=== PATIENT | male | born 1950 | race Caucasian/White ===

== ENCOUNTER 2021-02-19 11:43 | Outpatient (REF) | payer MEDICARE, OTHER, SELFPAY ==
[2021-02-19 13:42] LABS: MANUAL DIFF FLAG NO
[2021-02-19 13:52] LABS: Basophils Percent Auto 0.2 % (0-2); Eosinophils Absolute Auto 0.2 X10*3/uL (0.0-0.4); Eosinophils Percent Auto 3.1 % (0-4); Hematocrit 36.9 % (42-52); Hemoglobin 12.6 g/dl (14.0-18.0); Imm Gran Abs Auto 0.02 X10*3/uL (0.00-0.03); Imm Gran Pct Auto 0.3 % (0.0-0.4); Lymphocytes Absolute Auto 1.6 X10*3/uL (1.2-4.9); Lymphocytes Percent Auto 24.4 % (20-40); Mean Corpuscular HGB Conc 34.1 g/dl (31.0-36.0); Mean Corpuscular Hemoglobin 29.9 pg (27.0-33.0); Mean Corpuscular Volume 87.4 fL (80-98); Mean Platelet Volume 11.8 fL (9.4-12.4); Monocytes Absolute Auto 0.6 X10*3/uL (0.1-1.2); Monocytes Percent Auto 9.9 % (2-11); Neutrophils Absolute Auto 3.9 X10*3/uL (2.0-8.3); Neutrophils Percent Auto 62.1 % (45-73); Platelet Count 218 X10*3/uL (160-400); Red Blood Count 4.22 X10*6/uL (4.60-5.80); Red Cell Distribution Width 12.6 % (11.0-16.0); White Blood Count 6.4 X10*3/uL (4.8-10.8)
[2021-02-19 13:58] LABS: Estimated Average Glucose 212 mg/dL
[2021-02-19 14:23] LABS: Alanine Aminotransferase 29 U/L (0-40); Albumin Level 3.8 g/dL (3.5-5.0); Alkaline Phosphatase 87 U/L (39-117); Anion Gap 11 (12-20); Aspartate Amino Transferase 22 U/L (5-37); Bilirubin Total 0.8 mg/dL (0.0-1.0); Blood Urea Nitrogen 19 mg/dL (9-16); Calcium 9.2 mg/dL (8.4-10.2); Carbon Dioxide 25 mmol/L (22-29); Chloride 105 mmol/L (96-108); Cholesterol 114 mg/dL; Estimated Glomerular Filt Rate > 60; Glucose Fasting 277 mg/dL (60-99); HDL Cholesterol 25 mg/dL; LDL Cholesterol Calculated 59 mg/dl; Potassium 4.3 mmol/L (3.3-5.1); Sodium 137 mmol/L (135-145); Total Protein 6.5 g/dL (6.5-8.0); Triglycerides 154 mg/dL
== END 2021-02-19 11:44 | disposition home or self-care (01) ==
LOC: HO.HMGCLDS 11:43
PROVIDERS: PCP Internal Medicine; Visit Provider Internal Medicine
DX: E78.5 Hyperlipidemia, unspecified (principal); E11.9 Type 2 diabetes mellitus without complications; I10 Essential (primary) hypertension; I25.10 Atherosclerotic heart disease of native coronary artery without angina pectoris
CPT/HCPCS: 36415; 80053; 80061; 83036; 85025

== ENCOUNTER 2021-02-20 12:00 | Outpatient (REF) | payer MEDICARE, OTHER, SELFPAY ==
[2021-02-22 12:19] LABS: Microalbum/Creatinine Ratio Ur 5.2 ug/mg cr
== END 2021-02-20 12:01 | disposition home or self-care (01) ==
LOC: HO.HMGCLNP 12:00
PROVIDERS: Visit Provider Internal Medicine
DX: I10 Essential (primary) hypertension (principal); I25.10 Atherosclerotic heart disease of native coronary artery without angina pectoris; E78.5 Hyperlipidemia, unspecified; E11.9 Type 2 diabetes mellitus without complications; Z79.4 Long term (current) use of insulin
CPT/HCPCS: 82043

== ENCOUNTER 2021-06-14 09:12 | Outpatient (REF) | payer MEDICARE, OTHER, SELFPAY ==
[2021-06-14 11:52] LABS: Alanine Aminotransferase 26 U/L (0-40); Albumin Level 3.8 g/dL (3.5-5.0); Alkaline Phosphatase 93 U/L (39-117); Anion Gap 12 (12-20); Aspartate Amino Transferase 23 U/L (5-37); Bilirubin Total 0.6 mg/dL (0.0-1.0); Blood Urea Nitrogen 18 mg/dL (9-16); Calcium 9.4 mg/dL (8.4-10.2); Carbon Dioxide 21 mmol/L (22-29); Chloride 109 mmol/L (96-108); Cholesterol 110 mg/dL; Estimated Glomerular Filt Rate > 60; Glucose Fasting 212 mg/dL (60-99); HDL Cholesterol 20 mg/dL; LDL Cholesterol Calculated 59 mg/dl; Potassium 4.1 mmol/L (3.3-5.1); Sodium 138 mmol/L (135-145); Total Protein 6.7 g/dL (6.5-8.0); Triglycerides 159 mg/dL
[2021-06-14 11:56] LABS: Creatinine Urine 235.83 mg/dL; Microalbum/Creatinine Ratio Ur 5.5 ug/mg cr
[2021-06-14 12:04] LABS: Estimated Average Glucose 186 mg/dL; Hemoglobin A1c % 8.1 %
== END 2021-06-14 09:13 | disposition home or self-care (01) ==
LOC: HO.LAB 09:12
PROVIDERS: Visit Provider Internal Medicine
DX: E78.5 Hyperlipidemia, unspecified (principal); I10 Essential (primary) hypertension; E11.9 Type 2 diabetes mellitus without complications
CPT/HCPCS: 36415; 80053; 80061; 82043; 83036

== ENCOUNTER 2021-10-22 14:25 | Outpatient (REF) | payer MEDICARE, OTHER, SELFPAY ==
[2021-10-22 16:37] LABS: Hematocrit 38.6 % (42.0-52.0); Hemoglobin 13.2 g/dl (14.0-18.0); Mean Corpuscular HGB Conc 34.2 g/dl (31.0-36.0); Mean Corpuscular Hemoglobin 30.9 pg (27.0-33.0); Mean Corpuscular Volume 90.4 fL (80.0-98.0); Platelet Count 180 X10*3/uL (160-400); Red Blood Count 4.27 X10*6/uL (4.60-5.80); Red Cell Distribution Width 12.6 % (11.0-16.0)
[2021-10-22 16:43] LABS: Estimated Average Glucose 131 mg/dL; Hemoglobin A1c % 6.2 %
[2021-10-22 16:51] LABS: Alanine Aminotransferase 21 U/L (0-40); Albumin Level 3.8 g/dL (3.5-5.0); Alkaline Phosphatase 85 U/L (39-117); Anion Gap 10 (12-20); Aspartate Amino Transferase 20 U/L (5-37); Bilirubin Total 0.6 mg/dL (0.0-1.0); Blood Urea Nitrogen 20 mg/dL (9-16); Carbon Dioxide 25 mmol/L (22-29); Chloride 108 mmol/L (96-108); Cholesterol 111 mg/dL; Estimated Glomerular Filt Rate > 60; Glucose Fasting 139 mg/dL (60-99); HDL Cholesterol 25 mg/dL; LDL Cholesterol Calculated 57 mg/dl; Potassium 4.3 mmol/L (3.3-5.1); Sodium 139 mmol/L (135-145); Total Protein 6.7 g/dL (6.5-8.0); Triglycerides 147 mg/dL
== END 2021-10-22 14:26 | disposition home or self-care (01) ==
LOC: HO.HMGCLDS 14:25
PROVIDERS: PCP Internal Medicine; Visit Provider Internal Medicine
DX: E11.9 Type 2 diabetes mellitus without complications (principal); E78.5 Hyperlipidemia, unspecified; I10 Essential (primary) hypertension
CPT/HCPCS: 36415; 80053; 80061; 83036; 85027

== ENCOUNTER 2021-11-01 14:00 | Outpatient (REF) | payer MEDICARE, OTHER, SELFPAY ==
--- NOTE | ~2021-11-01 | XR_ITS ---
EXAMINATION: XR CHEST CLINICAL INFORMATION: Shortness of breath and weakness. COMPARISON: None. TECHNIQUE: 2 views of the chest were obtained. FINDINGS: There is no evidence of acute parenchymal disease, pneumothorax, or pleural effusion. Heart normal size. Status post median sternotomy and CABG. There is some linear scarring seen within the lingula. XR/XR chest 2V IMPRESSION: No acute disease.
== END 2021-11-01 14:01 | disposition home or self-care (01) ==
LOC: HO.XRAY 14:00
PROVIDERS: PCP Internal Medicine; Visit Provider Hospitalist
DX: R06.02 Shortness of breath (principal); G47.33 Obstructive sleep apnea (adult) (pediatric)
CPT/HCPCS: 71046; 99202

== ENCOUNTER → 2022-01-07 13:10 | Outpatient (BNVA) | payer MEDICARE, OTHER, SELFPAY | PROVIDERS: PCP Internal Medicine; Visit Provider Hospitalist | DX: M62.81 Muscle weakness (generalized) (principal); R26.89 Other abnormalities of gait and mobility; R06.02 Shortness of breath; G47.33 Obstructive sleep apnea (adult) (pediatric) | CPT/HCPCS: 99212 ==

== ENCOUNTER 2022-10-05 11:46 | Outpatient (REF) | payer MEDICARE, OTHER, SELFPAY ==
[2022-10-05 14:05] LABS: MANUAL DIFF FLAG NO
[2022-10-05 14:11] LABS: Basophils Percent Auto 0.2 % (0-2); Eosinophils Absolute Auto 0.3 X10*3/uL (0.0-0.4); Hematocrit 39.8 % (42.0-52.0); Hemoglobin 13.4 g/dl (14.0-18.0); Imm Gran Abs Auto 0.03 X10*3/uL (0.00-0.03); Imm Gran Pct Auto 0.3 % (0.0-0.4); Lymphocytes Absolute Auto 1.6 X10*3/uL (1.2-4.9); Lymphocytes Percent Auto 18.4 % (20-40); Mean Corpuscular HGB Conc 33.7 g/dl (31.0-36.0); Mean Corpuscular Hemoglobin 31.1 pg (27.0-33.0); Mean Corpuscular Volume 92.3 fL (80.0-98.0); Mean Platelet Volume 11.8 fL (9.4-12.4); Monocytes Absolute Auto 0.8 X10*3/uL (0.1-1.2); Monocytes Percent Auto 9.5 % (2-11); Neutrophils Absolute Auto 5.9 x10*3/uL (2.0-8.3); Neutrophils Percent Auto 68.6 % (45-73); Platelet Count 211 X10*3/uL (160-400); Red Blood Count 4.31 X10*6/uL (4.60-5.80); Red Cell Distribution Width 12.5 % (11.0-16.0); White Blood Count 8.6 X10*3/uL (4.8-10.8)
[2022-10-05 14:21] LABS: Estimated Average Glucose 111 mg/dL; Hemoglobin A1c % 5.5 %
[2022-10-05 14:26] LABS: Alanine Aminotransferase 40 U/L (0-40); Albumin Level 3.8 g/dL (3.5-5.0); Alkaline Phosphatase 81 U/L (39-117); Anion Gap 11 (12-20); Aspartate Amino Transferase 30 U/L (5-37); Bilirubin Total 0.5 mg/dL (0.0-1.0); Blood Urea Nitrogen 20 mg/dL (9-16); Calcium 9.7 mg/dL (8.4-10.2); Carbon Dioxide 25 mmol/L (22-29); Chloride 108 mmol/L (96-108); Cholesterol 120 mg/dL; Estimated Glomerular Filt Rate 60; Glucose Fasting 156 mg/dL (60-99); HDL Cholesterol 27 mg/dL; LDL Cholesterol Calculated 72 mg/dl; Potassium 4.2 mmol/L (3.3-5.1); Sodium 140 mmol/L (135-145); Total Protein 6.6 g/dL (6.5-8.0); Triglycerides 109 mg/dL
[2022-10-05 14:51] LABS: Creatinine Urine 184.07 mg/dL; Microalbum/Creatinine Ratio Ur 10.8 ug/mg cr
== END 2022-10-05 11:47 | disposition home or self-care (01) ==
LOC: HO.HMGCLDS 11:46
PROVIDERS: PCP Internal Medicine; Visit Provider Internal Medicine
DX: E11.9 Type 2 diabetes mellitus without complications (principal); I10 Essential (primary) hypertension; E78.5 Hyperlipidemia, unspecified; I25.10 Atherosclerotic heart disease of native coronary artery without angina pectoris
CPT/HCPCS: 36415; 80053; 80061; 82043; 83036; 85025

== ENCOUNTER 2023-04-11 14:01 | Outpatient (REF) | payer MEDICARE, OTHER, SELFPAY ==
[2023-04-11 16:14] LABS: MANUAL DIFF FLAG NO
[2023-04-11 16:17] LABS: Basophils Percent Auto 0.1 % (0-2); Eosinophils Absolute Auto 0.3 X10*3/uL (0.0-0.4); Eosinophils Percent Auto 4.7 % (0-4); Hematocrit 41.2 % (42.0-52.0); Imm Gran Abs Auto 0.02 X10*3/uL (0.00-0.03); Imm Gran Pct Auto 0.3 % (0.0-0.4); Lymphocytes Absolute Auto 1.6 X10*3/uL (1.2-4.9); Lymphocytes Percent Auto 23.1 % (20-40); Mean Corpuscular Hemoglobin 31.9 pg (27.0-33.0); Mean Corpuscular Volume 93.8 fL (80.0-98.0); Mean Platelet Volume 11.3 fL (9.4-12.4); Monocytes Absolute Auto 0.6 X10*3/uL (0.1-1.2); Neutrophils Absolute Auto 4.4 x10*3/uL (2.0-8.3); Neutrophils Percent Auto 62.8 % (45-73); Platelet Count 235 X10*3/uL (160-400); Red Blood Count 4.39 X10*6/uL (4.60-5.80); Red Cell Distribution Width 12.1 % (11.0-16.0)
[2023-04-11 16:29] LABS: Alanine Aminotransferase 40 U/L (0-40); Albumin Level 3.9 g/dL (3.5-5.0); Alkaline Phosphatase 82 U/L (39-117); Anion Gap 10 (12-20); Aspartate Amino Transferase 35 U/L (5-37); Bilirubin Total 0.5 mg/dL (0.0-1.0); Blood Urea Nitrogen 17 mg/dL (9-16); Calcium 9.5 mg/dL (8.4-10.2); Carbon Dioxide 24 mmol/L (22-29); Chloride 109 mmol/L (96-108); Cholesterol 119 mg/dL (<200); Estimated Glomerular Filt Rate > 60; Glucose Fasting 144 mg/dL (60-99); HDL Cholesterol 29 mg/dL (>40); LDL Cholesterol Calculated 69 mg/dL (<100); Potassium 4.2 mmol/L (3.3-5.1); Sodium 139 mmol/L (135-145); Total Protein 7.1 g/dL (6.5-8.0); Triglycerides 107 mg/dL (<150)
[2023-04-11 16:32] LABS: Estimated Average Glucose 105 mg/dL; Hemoglobin A1c % 5.3 % (<6.0)
== END 2023-04-11 14:02 | disposition home or self-care (01) ==
LOC: HO.HMGCLDS 14:01
PROVIDERS: PCP Internal Medicine; Visit Provider Internal Medicine
DX: I25.10 Atherosclerotic heart disease of native coronary artery without angina pectoris (principal); E78.5 Hyperlipidemia, unspecified; E11.9 Type 2 diabetes mellitus without complications
CPT/HCPCS: 36415; 80053; 80061; 83036; 85025

== ENCOUNTER 2023-04-12 10:00 | Outpatient (REF) | payer OTHER, MEDICARE, SELFPAY | END 2023-04-12 10:01 | disposition home or self-care (01) | LOC: HO.HMGCLNP 10:00 | PROVIDERS: PCP Internal Medicine; Visit Provider Internal Medicine | DX: Z13.89 Encounter for screening for other disorder (principal) ==

== ENCOUNTER 2023-08-14 09:25 | Outpatient (REF) | payer MEDICARE, OTHER, SELFPAY ==
[2023-08-14 10:15] LABS: MANUAL DIFF FLAG NO
[2023-08-14 10:21] LABS: Basophils Percent Auto 0.1 % (0-2); Eosinophils Absolute Auto 0.4 X10*3/uL (0.0-0.4); Eosinophils Percent Auto 5.6 % (0-4); Hematocrit 39.4 % (42.0-52.0); Hemoglobin 13.5 g/dl (14.0-18.0); Imm Gran Abs Auto 0.01 X10*3/uL (0.00-0.03); Imm Gran Pct Auto 0.1 % (0.0-0.4); Lymphocytes Percent Auto 27.7 % (20-40); Mean Corpuscular HGB Conc 34.3 g/dl (31.0-36.0); Mean Corpuscular Hemoglobin 31.5 pg (27.0-33.0); Mean Corpuscular Volume 92.1 fL (80.0-98.0); Mean Platelet Volume 11.2 fL (9.4-12.4); Monocytes Absolute Auto 0.6 X10*3/uL (0.1-1.2); Monocytes Percent Auto 8.5 % (2-11); Neutrophils Absolute Auto 4.1 x10*3/uL (2.0-8.3); Platelet Count 190 X10*3/uL (160-400); Red Blood Count 4.28 X10*6/uL (4.60-5.80); White Blood Count 7.1 X10*3/uL (4.8-10.8)
[2023-08-14 11:18] LABS: Estimated Average Glucose 120 mg/dL; Hemoglobin A1c % 5.8 % (<6.0)
[2023-08-14 11:28] LABS: Alanine Aminotransferase 28 U/L (0-40); Albumin Level 3.8 g/dL (3.5-5.0); Alkaline Phosphatase 77 U/L (39-117); Anion Gap 9 (12-20); Aspartate Amino Transferase 27 U/L (5-37); Bilirubin Total 0.5 mg/dL (0.0-1.0); Blood Urea Nitrogen 13 mg/dL (9-16); Carbon Dioxide 25 mmol/L (22-29); Chloride 112 mmol/L (96-108); Cholesterol 104 mg/dL (<200); Estimated Glomerular Filt Rate > 60; Glucose Fasting 99 mg/dL (60-99); HDL Cholesterol 31 mg/dL (>40); LDL Cholesterol Calculated 60 mg/dL (<100); Potassium 3.5 mmol/L (3.3-5.1); Sodium 142 mmol/L (135-145); TSH reflex Free T4 1.86 uIU/mL (0.32-4.0); Total Protein 6.5 g/dL (6.5-8.0); Triglycerides 67 mg/dL (<150)
[2023-08-14 11:34] LABS: Creatinine Urine 121.53 mg/dL; Microalbum/Creatinine Ratio Ur 10.6 ug/mg cr (<30)
== END 2023-08-14 09:26 | disposition home or self-care (01) ==
LOC: HO.HMGCLDS 09:25
PROVIDERS: PCP Internal Medicine; Visit Provider Internal Medicine
DX: Z00.00 Encounter for general adult medical examination without abnormal findings (principal); E11.9 Type 2 diabetes mellitus without complications; E78.5 Hyperlipidemia, unspecified; I25.10 Atherosclerotic heart disease of native coronary artery without angina pectoris
CPT/HCPCS: 36415; 80053; 80061; 82043; 82570; 83036; 84443; 85025

== ENCOUNTER 2023-08-15 10:53 | Outpatient (AMB) | payer MEDICARE, OTHER, SELFPAY ==
[2023-08-15 10:55] VITALS: BP 106/66; PULSE 82; O2SAT 99; BMI 21.1
--- NOTE | 2023-08-15 10:55 | MHC.PC.OV ---
Vital Signs 08/15/23 10:55 Height 6 ft 1.5 in Weight 162 lb BMI 21.1 BP 106/66 Blood Pressure Location Lt brachial Position Sitting Pulse 82 Pulse Source Pulse Oximeter Pulse Oximetry (%) 99 Oxygen Delivery Method Room Air Intake Visit Reasons: 4 month fu Intake Note: Pt is here today for 4 months follow up visit. Allergies Tetanus Vaccines and Toxoid [Tetanus] Allergy (Intermediate, Verified 08/15/23 10:57) DIAPHORESIS/STIFFNESS tetanus and diphtheria toxoids Allergy (Unknown, Verified 08/15/23 10:57) fever,swelling Medication List - Last Reconciled 08/15/23 by Josy Chapman MD aspirin 81 mg PO DAILY atorvastatin 80 mg PO DAILY carvedilol 3.125 mg PO BID erenumab-aooe mg subcut folic acid 1 mg PO DAILY ibuprofen 200 mg PO Q6H PRN insulin aspart U-100 (Novolog FlexPen U-100 Insulin aspart) 10 units (0.1 mL) subcut TID insulin glargine (Basaglar KwikPen U-100 Insulin) 40 units subcut QAM multivitamin 1 tab PO DAILY pantoprazole 40 mg PO DAILY paroxetine HCl 60 mg PO DAILY pen needle, diabetic Use to inject insulin 4 times per day topiramate 50 mg PO BID topiramate 50 mg PO TID Tobacco use date assessed: 08/15/23 Fall risk assessment: No Falls in past year Last assessed Fall Risk: 08/15/23 Dental Screening Dental Screen Date: 08/15/23 Did you have a dental visit in the last 12 months?: Yes Did you have a dental problem in the last 6 months where you did not have access to dental care?: No Was dental information given to patient?: Patient has dentist HPI 4 month fu HPI Details Pt presents for f/u DM 2, HTN, CAD, hyperlipid, stable on meds. Patient reports fasting blood glucose between 100-120 and denies hypoglycemia. [facility] Medical History Muscular weakness SOB (shortness of breath) Otitis externa DM type 2 (diabetes mellitus, type 2) Migraine Poor balance Sleep apnea Tremor Coronary artery disease Hyperlipidemia Cerumen impaction Chronic depression HTN (hypertension) Surgical History H/O colonoscopy History of surgery History of hand surgery Hx of CABG History of back surgery History of cervical discectomy Family History Father No problems noted. Mother Diabetes Mental health disorder Substance use disorder Social History Housing: House Alcohol intake: never Patient Tobacco Use Status: Never used Tobacco e-Cigarette/Vaping Use: Never Used service: Yes Current occupational status: retired Cognitive needs: No Hearing needs: No Vision needs: No Questionnaire PHQ-9 Over the last 2 weeks, how often have you been bothered by any of the following problems? 1. Little interest or pleasure in doing things: several days 2. Feeling down, depressed, or hopeless: several days 3. Trouble falling or staying asleep, or sleeping too much: several days 4. Feeling tired or having little energy: several days 5. Poor appetite or overeating: several days 6. Feeling bad about yourself - or that you are a failure or have let yourself or your family down: not at all 7. Trouble concentrating on things, such as reading the newspaper or watching television: not at all 8. Moving or speaking so slowly that other people could have noticed. Or the opposite - being so fidgety or restless that you have been moving around a lot more than usual: not at all 9. Thoughts that you would be better off or of hurting yourself in some way: not at all Total score: 5 Depression Screening Interpretation: Negative Depression Screening Done: Yes Source: Developed by Drs. Pato Nguyen, Mana Dotson, Mohamud Agustin and colleagues, with an educational kevin from [employer]. Thrive Questionnaire Date Thrive assessed: 08/15/23 I am a: Patient What is your living situation today?: I have a steady place to live Within the past 12 months, did the food you bought not last and you didn't have the money to get more?: Never true Within the past 12 months, did you worry whether your food would run out before you got money to buy more?: Never true Do you have trouble paying for medicines?: No Do you have trouble getting transportation to medical appointments?: No Do you have trouble paying your heating and electricity bill?: No Do you have trouble taking care of your child, family member or friend?: No Do you have trouble with day-to-day activities such as bathing, preparing meals, shopping, managing finances, etc.?: No Are you currently unemployed and looking for a job?: No Are you interested in more education?: No Please select the resources that you would like help with: None THRIVE Score: 0 AUDIT C Alcohol Use Questionnaire (AUDIT-C) 1. How often do you have a drink containing alcohol?: Never 3. How often do you have six or more drinks on one occasion?: Never Total Score: 0 SONYA-7 AMB Questionnaire SONYA-7 Date SONYA - 7 assessed: 08/15/23 Feeling nervous, anxious, or on edge: 0 = Not at all Not being able to stop or control worryin = Not at all Worrying too much about different things: 0 = Not at all Trouble relaxin = Not at all Being so restless that it is hard to sit still: 0 = Not at all Becoming easily annoyed or irritable: 0 = Not at all Feeling afraid as if something awful might happen: 0 = Not at all Total SONYA-7 score (0-4 normal; 5-9 mild; 10-14 moderate; 15-21 severe): 0 Source: Developed by Drs. Pato Nguyen, Mana Dotson, Mohamud Agustin and colleagues, with an educational kevin from [employer]. Review of Systems Const All systems reviewed & are unremarkable except as noted in HPI and below Reports no additional complaints Eyes Reports no additional complaints ENT Reports no additional complaints Card Reports no additional complaints Resp Reports no additional complaints GI Reports no additional complaints Reports no additional complaints Physical exam (Primary Care) Vital Signs: Last Vital Signs Pulse 82 08/15/23 10:55 BP 106/66 08/15/23 10:55 Pulse Ox 99 08/15/23 10:55 Oxygen Delivery Method Room Air 08/15/23 10:55 BMI result Body Mass Index 21.1 Tobacco/Smoking Status: Tobacco use Status Tobacco use date assessed 08/15/23 08/15/23 11:05 Patient Tobacco Use Status Never used Tobacco 08/15/23 11:05 e-Cigarette/Vaping Use Never Used 08/15/23 11:05 PHQ-9: PHQ-9 Score PHQ-9: Total score 5 08/15/23 11:10 Depression Screening Interpretation: Negative Thrive Assessment: Date of Thrive Assessment Date Thrive assessed 08/15/23 08/15/23 11:05 Const General: no acute distress HENMT Head: Yes normal to inspection Ears: hearing grossly normal bilaterally Face and sinus: Yes normal facial exam Resp Effort & Inspection: normal respiratory effort Auscultation: clear to auscultation bilaterally Cardio Rhythm: regular rhythm Heart sounds: S1 normal heart sound present and S2 normal heart sound present GI Inspection: Yes normal to inspection Palpation (GI): Soft to palpation Percussion: Yes normal to percussion Assessment and Plan Assessment & Plan (1) DM type 2 (diabetes mellitus, type 2): Code(s): E11.9 - Type 2 diabetes mellitus without complications Plan: A1c is 5.8, continue current medications increase physical activity ADA diet discussed with the patient. Follow-up in 6 months with a fasting labs (2) KOFI (obstructive sleep apnea): Comment: on Bpap, f/u with sleep medicine Code(s): G47.33 - Obstructive sleep apnea (adult) (pediatric) Plan: Continue BiPAP (3) HTN (hypertension): Code(s): I10 - Essential (primary) hypertension Plan: Continue carvedilol (4) Coronary artery disease: Comment: s/p CABG 05/2019, cardiac cath 08/27, Dr. Morris, multiple stenosis in coronary arteries, no intervention, medical management Code(s): I25.10 - Atherosclerotic heart disease of [place] coronary artery without angina pectoris Plan: Continue current medications and follow-up with Cardiology (5) Hyperlipidemia: Code(s): E78.5 - Hyperlipidemia, unspecified Plan: Continue statin Coding Level of Care Code Est Pt Level 4 (26900) Diagnoses DM type 2 (diabetes mellitus, type 2) E11.9 KOFI (obstructive sleep apnea) G47.33 HTN (hypertension) I10 Coronary artery disease I25.10 Hyperlipidemia E78.5
== END 2023-08-15 11:17 | disposition home or self-care (01) ==
PROVIDERS: PCP Internal Medicine; Visit Provider Internal Medicine
DX: E11.9 Type 2 diabetes mellitus without complications (principal); G47.33 Obstructive sleep apnea (adult) (pediatric); I10 Essential (primary) hypertension; I25.10 Atherosclerotic heart disease of native coronary artery without angina pectoris; E78.5 Hyperlipidemia, unspecified
CPT/HCPCS: 99214

== ENCOUNTER 2024-02-12 12:20 | Outpatient (AMB) | payer MEDICARE, OTHER, SELFPAY ==
--- NOTE | 2024-02-12 12:41 | MHC.PC.OV ---
Vital Signs 02/12/24 12:42 Height 6 ft 1.5 in Weight 165 lb BMI 21.5 BP 96/62 Blood Pressure Location Lt brachial Position Sitting Pulse 95 Pulse Source Pulse Oximeter Pulse Oximetry (%) 100 Oxygen Delivery Method Room Air Intake Visit Reasons: 6 month fu Intake Note: Pt is here today for 6 months follow up visit. Allergies Tetanus Vaccines and Toxoid [Tetanus] Allergy (Intermediate, Verified 02/12/24 12:45) DIAPHORESIS/STIFFNESS tetanus and diphtheria toxoids Allergy (Unknown, Verified 02/12/24 12:45) fever,swelling Medication List - Last Reconciled 02/12/24 by Josy Chapman MD aspirin 81 mg PO DAILY atorvastatin 80 mg PO DAILY carvedilol 3.125 mg PO BID erenumab-aooe mg subcut folic acid 1 mg PO DAILY ibuprofen 200 mg PO Q6H PRN insulin aspart U-100 (Novolog FlexPen U-100 Insulin aspart) 10 units (0.1 mL) subcut TID insulin glargine (Basaglar KwikPen U-100 Insulin) 40 units (0.4 mL) subcut QAM multivitamin 1 tab PO DAILY pantoprazole 40 mg PO DAILY paroxetine HCl 60 mg PO DAILY pen needle, diabetic Use to inject insulin 4 times per day topiramate 50 mg PO BID topiramate 50 mg PO TID Tobacco use date assessed: 02/12/24 Fall risk assessment: 1 Fall in past year Last assessed Fall Risk: 02/12/24 Dental Screening Dental Screen Date: 02/12/24 Did you have a dental visit in the last 12 months?: No Did you have a dental problem in the last 6 months where you did not have access to dental care?: No Was dental information given to patient?: Patient declined HPI 6 month fu HPI Details Pt is for f/u on insulin-dependent diabetes hypertension hyperlipidemia chronic anxiety controlled on current medications. [facility] Medical History Muscular weakness SOB (shortness of breath) Otitis externa DM type 2 (diabetes mellitus, type 2) Migraine Poor balance Sleep apnea Tremor Coronary artery disease Hyperlipidemia Cerumen impaction Chronic depression HTN (hypertension) Surgical History H/O colonoscopy History of surgery History of hand surgery Hx of CABG History of back surgery History of cervical discectomy Family History Father No problems noted. Mother Diabetes Mental health disorder Substance use disorder Social History Housing: House Alcohol intake: never Patient Tobacco Use Status: Never used Tobacco e-Cigarette/Vaping Use: Never Used service: Yes Current occupational status: retired Cognitive needs: No Hearing needs: No Vision needs: No Questionnaire Thrive Questionnaire Date Thrive assessed: 02/12/24 I am a: Patient What is your living situation today?: I have a steady place to live Within the past 12 months, did the food you bought not last and you didn't have the money to get more?: Never true Within the past 12 months, did you worry whether your food would run out before you got money to buy more?: Never true Do you have trouble paying for medicines?: No Do you have trouble getting transportation to medical appointments?: No Do you have trouble paying your heating and electricity bill?: No Do you have trouble taking care of your child, family member or friend?: No Do you have trouble with day-to-day activities such as bathing, preparing meals, shopping, managing finances, etc.?: No Are you currently unemployed and looking for a job?: No Are you interested in more education?: No Please select the resources that you would like help with: None Currently or been in a relationship where the following occur: No concerns reported THRIVE Score: 0 AUDIT C Alcohol Use Questionnaire (AUDIT-C) 1. How often do you have a drink containing alcohol?: Never 3. How often do you have six or more drinks on one occasion?: Never Total Score: 0 SONYA-7 AMB Questionnaire SONYA-7 Date SONYA - 7 assessed: 02/12/24 Feeling nervous, anxious, or on edge: 0 = Not at all Not being able to stop or control worryin = Not at all Worrying too much about different things: 0 = Not at all Trouble relaxin = Not at all Being so restless that it is hard to sit still: 0 = Not at all Becoming easily annoyed or irritable: 0 = Not at all Feeling afraid as if something awful might happen: 0 = Not at all Total SONYA-7 score (0-4 normal; 5-9 mild; 10-14 moderate; 15-21 severe): 0 Source: Developed by Drs. Pato Nguyen, Mana Dotson, Mohamud Agustin and colleagues, with an educational kevin from [employer]. SONYA-7 Assessment Billing SONYA-7 Assessment Tool: SONYA-7 Assessment 75563 Review of Systems Const All systems reviewed & are unremarkable except as noted in HPI and below Eyes Reports no additional complaints ENT Reports no additional complaints Card Reports no additional complaints Resp Reports no additional complaints GI Reports no additional complaints Physical exam (Primary Care) Vital Signs: Last Vital Signs Pulse 95 02/12/24 12:42 BP 96/62 02/12/24 12:42 Pulse Ox 100 02/12/24 12:42 Oxygen Delivery Method Room Air 02/12/24 12:42 BMI result Body Mass Index 21.5 Tobacco/Smoking Status: Tobacco use Status Tobacco use date assessed 02/12/24 02/12/24 12:48 Patient Tobacco Use Status Never used Tobacco 02/12/24 12:41 e-Cigarette/Vaping Use Never Used 02/12/24 12:41 Thrive Assessment: Date of Thrive Assessment Date Thrive assessed 02/12/24 02/12/24 12:48 Currently or been in a relationship where the following occur: No concerns reported Const General: no acute distress HENMT Head: Yes normal to inspection Ears: hearing grossly normal bilaterally Resp Effort & Inspection: normal respiratory effort Auscultation: clear to auscultation bilaterally Cardio Rhythm: regular rhythm Heart sounds: S1 normal heart sound present and S2 normal heart sound present GI Inspection: Yes normal to inspection Palpation (GI): Soft to palpation Percussion: Yes normal to percussion Coding Level of Care Code Est Pt Level 4 (57556) Diagnoses HTN (hypertension) I10 Hyperlipidemia E78.5 DM type 2 (diabetes mellitus, type 2) E11.9 Annual physical exam Z00.00 Additional Codes SONYA-7 Assessment Billing - SONYA-7 Assessment Tool: SONYA-7 Assessment 24772 ([id number]) Assessment & Plan Assessment & Plan (1) HTN (hypertension): Code(s): I10 - Essential (primary) hypertension Category: Medical Plan: cont meds (2) Hyperlipidemia: Code(s): E78.5 - Hyperlipidemia, unspecified Category: Medical Plan: cont statin (3) DM type 2 (diabetes mellitus, type 2): Code(s): E11.9 - Type 2 diabetes mellitus without complications Category: Medical Plan: check A1C, cont meds (4) Annual physical exam: Code(s): Z00.00 - Encounter for general adult medical examination without abnormal findings Category: Medical Plan: return for PE Orders: Orders Complete Blood Count Auto Diff Today E11.9 - Type 2 diabetes mellitus without complications, E78.5 - Hyperlipidemia, unspecified, I10 - Essential (primary) hypertension Comprehensive [place]. Panel Fast Today E11.9 - Type 2 diabetes mellitus without complications, E78.5 - Hyperlipidemia, unspecified, I10 - Essential (primary) hypertension Microalbumin, Random (w Creat) Today E11.9 - Type 2 diabetes mellitus without complications, E78.5 - Hyperlipidemia, unspecified, I10 - Essential (primary) hypertension Comprehensive [place]. Panel Fast 6 Months E11.9 - Type 2 diabetes mellitus without complications, I10 - Essential (primary) hypertension, Z00.00 - Encounter for general adult medical examination without abnormal findings Hemoglobin A1c Today E11.9 - Type 2 diabetes mellitus without complications, E78.5 - Hyperlipidemia, unspecified, I10 - Essential (primary) hypertension Lipid Panel Today E11.9 - Type 2 diabetes mellitus without complications, E78.5 - Hyperlipidemia, unspecified, I10 - Essential (primary) hypertension Hemoglobin A1c 6 Months E11.9 - Type 2 diabetes mellitus without complications, I10 - Essential (primary) hypertension, Z00.00 - Encounter for general adult medical examination without abnormal findings Lipid Panel 6 Months E11.9 - Type 2 diabetes mellitus without complications, I10 - Essential (primary) hypertension, Z00.00 - Encounter for general adult medical examination without abnormal findings Microalbumin, Random (w Creat) 6 Months E11.9 - Type 2 diabetes mellitus without complications, I10 - Essential (primary) hypertension, Z00.00 - Encounter for general adult medical examination without abnormal findings
[2024-02-12 12:42] VITALS: BP 96/62; PULSE 95; O2SAT 100; BMI 21.5
== END 2024-02-12 15:05 | disposition home or self-care (01) ==
PROVIDERS: PCP Internal Medicine; Visit Provider Internal Medicine
DX: I10 Essential (primary) hypertension (principal); E78.5 Hyperlipidemia, unspecified; E11.9 Type 2 diabetes mellitus without complications; Z00.00 Encounter for general adult medical examination without abnormal findings

== ENCOUNTER → 2024-02-12 12:20 | Outpatient (BNVA) | payer MEDICARE, OTHER, SELFPAY | PROVIDERS: PCP Internal Medicine; Visit Provider Internal Medicine ==

== ENCOUNTER 2024-02-12 13:18 | Outpatient (REF) | payer MEDICARE, OTHER, SELFPAY ==
[2024-02-12 16:11] LABS: MANUAL DIFF FLAG NO
[2024-02-12 16:36] LABS: Alanine Aminotransferase 32 U/L (0-40); Alkaline Phosphatase 80 U/L (39-117); Anion Gap 10 (12-20); Aspartate Amino Transferase 26 U/L (5-37); Basophils Percent Auto 0.2 % (0-2); Bilirubin Total 0.7 mg/dL (0.0-1.0); Blood Urea Nitrogen 15 mg/dL (9-16); Calcium 9.7 mg/dL (8.4-10.2); Carbon Dioxide 23 mmol/L (22-29); Chloride 110 mmol/L (96-108); Cholesterol 113 mg/dL (<200); Eosinophils Absolute Auto 0.4 X10*3/uL (0.0-0.4); Eosinophils Percent Auto 4.8 % (0-4); Estimated Glomerular Filt Rate > 60; Glucose Fasting 152 mg/dL (60-99); HDL Cholesterol 31 mg/dL (>40); Hematocrit 40.7 % (42.0-52.0); Hemoglobin 13.9 g/dl (14.0-18.0); Imm Gran Abs Auto 0.11 X10*3/uL (0.00-0.03); Imm Gran Pct Auto 1.3 % (0.0-0.4); LDL Cholesterol Calculated 53 mg/dL (<100); Lymphocytes Absolute Auto 1.6 X10*3/uL (1.2-4.9); Lymphocytes Percent Auto 19.5 % (20-40); Mean Corpuscular HGB Conc 34.2 g/dl (31.0-36.0); Mean Corpuscular Hemoglobin 31.9 pg (27.0-33.0); Mean Corpuscular Volume 93.3 fL (80.0-98.0); Mean Platelet Volume 11.6 fL (9.4-12.4); Monocytes Absolute Auto 0.7 X10*3/uL (0.1-1.2); Monocytes Percent Auto 8.8 % (2-11); Neutrophils Absolute Auto 5.4 x10*3/uL (2.0-8.3); Neutrophils Percent Auto 65.4 % (45-73); Platelet Count 209 X10*3/uL (160-400); Potassium 4.1 mmol/L (3.3-5.1); Red Blood Count 4.36 X10*6/uL (4.60-5.80); Red Cell Distribution Width 12.6 % (11.0-16.0); Sodium 139 mmol/L (135-145); Total Protein 7.1 g/dL (6.5-8.0); Triglycerides 146 mg/dL (<150); White Blood Count 8.3 X10*3/uL (4.8-10.8)
[2024-02-12 16:42] LABS: Estimated Average Glucose 114 mg/dL; Hemoglobin A1c % 5.6 % (<6.0); Total Hemoglobin (HGBA1C) 3619.5097 umol/L
[2024-02-12 16:46] LABS: Creatinine Urine 94.84 mg/dL; Microalbum/Creatinine Ratio Ur 13.7 ug/mg cr (<30)
== END 2024-02-12 13:19 | disposition home or self-care (01) ==
LOC: HO.HMGCLDS 13:18
PROVIDERS: PCP Internal Medicine; Visit Provider Internal Medicine
DX: I10 Essential (primary) hypertension (principal); E11.9 Type 2 diabetes mellitus without complications; E78.5 Hyperlipidemia, unspecified; Z79.4 Long term (current) use of insulin; Z79.899 Other long term (current) drug therapy
CPT/HCPCS: 36415; 80053; 80061; 82043; 82570; 83036; 85025; 96127; 99212

== ENCOUNTER → 2024-08-12 23:59 | Outpatient (BNV) | payer MEDICARE, OTHER, SELFPAY | PROVIDERS: PCP Internal Medicine; Visit Provider Internal Medicine | DX: I95.1 Orthostatic hypotension (principal); U07.1 COVID-19; I10 Essential (primary) hypertension | CPT/HCPCS: G0180 ==

== ENCOUNTER 2024-08-13 07:59 | Outpatient (AMB) | payer MEDICARE, OTHER, SELFPAY ==
--- OUTSIDE RECORDS SUMMARY | 2024-08-13 08:03 | XMS_ITS | Clinical Summary ---
Author Organization Unknown Care Team Providers Care Raker Buffing Wheel Name Role Phone VLAD WEAVER, SHAMIR Unavailable Unavailable SHIRAZ PT, JAQUELINE Unavailable Unavailable EDELMIRA CATHETER BUILDER, KARO Unavailable Unavailable RN, NANETTE Unavailable Unavailable LUIGI PRASADN, MARLENE Unavailable Unavailable SPAFFORD OT, DM Unavailable Unavailable CONDINO IRISH MOSS BLEACHER/MCMILLAN, CARMEL Unavailable Unav ailable Payers Payer Name Policy Type Policy Number Effective Date Expira tion Date MEDICARE.NGS.PDGM [id number] Problems Condition Name Condition Details Condition Category Status Onset Date Resolution Date Last Treatment Date Treating Clinician Comments ORTHOSTATIC HYPOTENSION Active 08-01 00:00: 00 COVID-19 Active 08-01 00:00: 00 CONTUSION OF ABDOMINAL WALL, SUBSEQUENT ENCOUNTER Active 08-01 00:00: 00 ACUTE POSTHEMORRHA GIC ANEMIA Active 08-01 00:00: 00 TYPE 2 DIABETES MELLITUS WITHOUT COMPLICATION S Active 08-01 00:00: 00 ESSENTIAL (PRIMARY) HYPERTENSION Active 08-01 00:00: 00 ATHSCL HEART DISEASE OF [place] CORONARY ARTERY W/O ANG PCTRS Active 08-01 00:00: 00 SUPRAVENTRIC ULAR TACHYCARDIA, UNSPECIFIED Active 08-01 00:00: 00 DEPRESSION, UNSPECIFIED Active 08-01 00:00: 00 HYPERLIPIDEM IA, UNSPECIFIED Active 08-01 00:00: 00 MCC (CURRENT) USE OF INSULIN Active 08-01 00:00: 00 HISTORY OF FALLING Active 08-01 00:00: 00 Allergies, Adverse Reactions, Alerts Allergy Name Allergy Type Status Severity Reaction(s) Onset Date Inactive Date Treating Clinician Comments TETANUS TOXIODS Propensity to adverse reactions Active 2024-07 12:51:3 6 Medications Ordered Medication Name Filled Medication Name Start Date Stop Date Current Medication? Ordering Clinician Indication Dosage Frequency Signature (SIG) Comments Components fludrocorti sone 0.1 mg tablet 07-29 00:00: 00 Yes [id number] HYPOTENSION 1 tablet DAILY 1 tablet DAILY (route: oral) Med Classific ation: Endocrine mirtazapine 15 mg tablet 07-29 00:00: 00 Yes [id number] DEPRESSION 1 tablet EVERY PM 1 tablet EVERY PM (route: oral) Med Classific ation: Central Nervous System Agents Lantus Solostar U-100 Insulin 100 unit/mL (3 mL) subcutaneou s pen 07-25 00:00: 00 Yes [id number] DIABETES 10 unit DAILY 10 unit DAILY (route: subcutaneo us) Med Classific ation: Endocrine metoprolol succinate ER 25 mg tablet,exte nded release 24 hr 07-25 00:00: 00 Yes [id number] HTN 1 tablet DAILY 1 tablet DAILY (route: oral) Med Classific ation: Cardiovas cular Therapy Agents midodrine 10 mg tablet 07-25 00:00: 00 Yes [id number] HYPOTENSION 1 tablet 3 TIMES DAILY 1 tablet 3 TIMES DAILY (route: oral) Med Classific ation: Cardiovas cular Therapy Agents Aspirin Childrens 81 mg chewable tablet 08-01 00:00: 00 Yes [id number] BLOOD CLOT PREVENTION 1 tablet DAILY 1 tablet DAILY (route: oral) Med Classific ation: Hematolog ical Agents atorvastati n 80 mg tablet 08-01 00:00: 00 Yes [id number] CHOLESTEROL 1 tablet EVERY PM 1 tablet EVERY PM (route: oral) Med Classific ation: Cardiovas cular Therapy Agents Calcium 500 + D 500 mg-10 mcg (400 unit) tablet 08-01 00:00: 00 Yes [id number] SUPPLEMENT 1 tablet DAILY 1 tablet DAILY (route: oral) Med Classific ation: Electroly te Balance-N utritiona l Products folic acid 1 mg tablet 08-01 00:00: 00 Yes [id number] SUPPLEMENT 1 tablet DAILY 1 tablet DAILY (route: oral) Med Classific ation: Electroly te Balance-N utritiona l Products magnesium oxide 400 mg (241.3 mg magnesium) tablet 08-01 00:00: 00 Yes [id number] SUPPLEMENT 1 tablet DAILY 1 tablet DAILY (route: oral) Med Classific ation: Electroly te Balance-N utritiona l Products Miralax 17 gram oral powder packet 08-01 00:00: 00 Yes [id number] CONSTIPATIO N 17 g DAILY 17 g DAILY (route: oral) Med Classific ation: Gastroint estinal Therapy Agents pantoprazol e 40 mg tablet,patt yed release 08-01 00:00: 00 Yes [id number] GERD 1 tablet DAILY 1 tablet DAILY (route: oral) Med Classific ation: Gastroint estinal Therapy Agents paroxetine 20 mg tablet 08-01 00:00: 00 Yes [id number] MOOD 3 tablet DAILY 3 tablet DAILY (route: oral) Med Classific ation: Central Nervous System Agents Tylenol 325 mg tablet 08-01 00:00: 00 Yes [id number] PAIN 2 tablet EVERY 6 HOURS 2 tablet EVERY 6 HOURS (route: oral) Med Classific ation: Analgesic , Anti-infl ammatory or Antipyret ic Vital Signs Vital Name Observation Time Observation Value Commen ts Temperature 2024-08-08 10:05:00.000 96.9 [degF] Temperature 2024-08-07 10:58:00.000 97.5 [degF] Temperature 2024-08-06 10:55:00.000 97.3 [degF] Temperature 2024-08-01 13:40:00.000 97.7 [degF] BMI (%) 2024-08-01 13:22:34.000 21 kg/m2 Height 2024-08-01 13:22:27.000 73 [in_us] Pulse 2024-08-08 10:05:00.000 60 /min Pulse 2024-08-07 10:58:00.000 76 /min Pulse 2024-08-06 10:55:00.000 63 /min Pulse 2024-08-01 13:40:00.000 75 /min O2 Saturation (%) 2024-08-08 10:05:00.000 98 % O2 Saturation (%) 2024-08-07 10:58:00.000 99 % O2 Saturation (%) 2024-08-06 10:55:00.000 97 % O2 Saturation (%) 2024-08-01 13:40:00.000 100 % Respirations 2024-08-08 10:05:00.000 18 /min Respirations 2024-08-07 10:58:00.000 18 /min Respirations 2024-08-06 10:55:00.000 18 /min Respirations 2024-08-01 13:40:00.000 18 /min Weight (lbs) 2024-08-01 13:22:34.000 162 [lb_av] Systolic Blood Pressure 2024-08-08 10:05:00.000 118 mm [Hg] Systolic Blood Pressure 2024-08-07 10:58:00.000 122 mm [Hg] Systolic Blood Pressure 2024-08-06 10:55:00.000 120 mm [Hg] Systolic Blood Pressure 2024-08-01 13:40:00.000 102 mm [Hg] Diastolic Blood Pressure 2024-08-08 10:05:00.000 64 mm [Hg] Diastolic Blood Pressure 2024-08-07 10:58:00.000 80 mm [Hg] Diastolic Blood Pressure 2024-08-06 10:55:00.000 72 mm [Hg] Diastolic Blood Pressure 2024-08-01 13:40:00.000 68 mm [Hg] Plan of Treatment Planned Activity Planned Date Details Comments Future Scheduled Test RN TO OBSE RVE, ASSESS, EVALUATE, AND DEVELOP AN INDIVIDUALIZED PLAN OF CARE. AGENCY MAY ACCEPT ORDERS FROM CONSULTING PHYSICIANS. RN TO OBSERVE AND ASSESS, CONTRACT ENGINEER/STIFF LEG DERRICK OPERATOR TO OBSERVE FOR RISK FOR FALLS AND INSTRUCT IN FALL PREVENTION, HOME SAFETY, MEDICATION MANAGEMENT, INFECTION PREVENTION, AND NUTRITION MANAGEMENT. RN/CONTRACT ENGINEER/STIFF LEG DERRICK OPERATOR NURSE MAY PERFORM O2 SATURATION LEVEL ON ADMISSION AND PRN FOR RN TO ASSESS/CONTRACT ENGINEER TO OBSERVE PATIENT, WITH NOTIFICATION TO THE PHYSICIAN IF SATURATION IS 90% IN THE ABSENCE OF MORE SPECIFIC PARAMETERS FROM THE PHYSICIAN. AGENCY MAY PERFORM A RESUMPTION OF CARE VISIT FOLLOWING ANY HOSPITAL ADMISSION. RN/CONTRACT ENGINEER/STIFF LEG DERRICK OPERATOR TO MONITOR CO-MORBID CONDITIONS LISTED ON THE PLAN OF CARE AND ANY NEW CONDITIONS THAT PRESENT THEMSELVES DURING THIS EPISODE TO IDENTIFY CHANGES AND INTERVENE TO MINIMIZE COMPLICATIONS. [code = RN TO OBSERVE, ASSESS, EVALUATE, AND DEVELOP AN INDIVIDUALIZED PLAN OF CARE. AGENCY MAY ACCEPT ORDERS FROM CONSULTING PHYSICIANS. RN TO OBSERVE AND ASSESS, CONTRACT ENGINEER/STIFF LEG DERRICK OPERATOR TO OBSERVE FOR RISK FOR FALLS AND INSTRUCT IN FALL PREVENTION, HOME SAFETY, MEDICATION MANAGEMENT, INFECTION PREVENTION, AND NUTRITION MANAGEMENT. RN/CONTRACT ENGINEER/STIFF LEG DERRICK OPERATOR NURSE MAY PERFORM O2 SATURATION LEVEL ON ADMISSION AND PRN FOR RN TO ASSESS/CONTRACT ENGINEER TO OBSERVE PATIENT, WITH NOTIFICATION TO THE PHYSICIAN IF SATURATION IS 90% IN THE ABSENCE OF MORE SPECIFIC PARAMETERS FROM THE PHYSICIAN. AGENCY MAY PERFORM A RESUMPTION OF CARE VISIT FOLLOWING ANY HOSPITAL ADMISSION. RN/CONTRACT ENGINEER/STIFF LEG DERRICK OPERATOR TO MONITOR CO-MORBID CONDITIONS LISTED ON THE PLAN OF CARE AND ANY NEW CONDITIONS THAT PRESENT THEMSELVES DURING THIS EPISODE TO IDENTIFY CHANGES AND INTERVENE TO MINIMIZE COMPLICATIONS.] Future Scheduled Test RISK FOR H OSPITALIZATION; RN TO ASSESS/TEACH, STIFF LEG DERRICK OPERATOR/CONTRACT ENGINEER TO OBSERVE/TEACH PATIENT/CAREGIVER ON RISK FOR HOSPITALIZATION/EMERGENCY ROOM VISITS, TEACH SIGNS AND SYMPTOMS THAT PUT PATIENT AT RISK, WHEN TO NOTIFY NURSE/PHYSICIAN OF COMPLICATIONS/DECLINE, AND WHEN TO CALL 911. [code = RISK FOR HOSPITALIZATION; RN TO ASSESS/TEACH, STIFF LEG DERRICK OPERATOR/CONTRACT ENGINEER TO OBSERVE/TEACH PATIENT/CAREGIVER ON RISK FOR HOSPITALIZATION/EMERGENCY ROOM VISITS, TEACH SIGNS AND SYMPTOMS THAT PUT PATIENT AT RISK, WHEN TO NOTIFY NURSE/PHYSICIAN OF COMPLICATIONS/DECLINE, AND WHEN TO CALL 911.] Future Scheduled Test MEDICATION MANAGEMENT; RN/CONTRACT ENGINEER/STIFF LEG DERRICK OPERATOR TO REVIEW MEDICATIONS FOR INTERACTIONS, EFFECTIVENESS OF DRUG THERAPY, AND SIGNS/SYMPTOMS OF ADVERSE REACTIONS. MAY INSTRUCT AND REINFORCE MEDICATION TEACHING RELATED TO THE USE OF MEDICATIONS, DOSAGE, FREQUENCY, PURPOSE, SIDE EFFECTS, AND TO REPORT COMPLICATIONS. [code = MEDICATION MANAGEMENT; RN/CONTRACT ENGINEER/STIFF LEG DERRICK OPERATOR TO REVIEW MEDICATIONS FOR INTERACTIONS, EFFECTIVENESS OF DRUG THERAPY, AND SIGNS/SYMPTOMS OF ADVERSE REACTIONS. MAY INSTRUCT AND REINFORCE MEDICATION TEACHING RELATED TO THE USE OF MEDICATIONS, DOSAGE, FREQUENCY, PURPOSE, SIDE EFFECTS, AND TO REPORT COMPLICATIONS.] Future Scheduled Test CARDIOVASC ULAR SYSTEM; RN TO ASSESS/TEACH, CONTRACT ENGINEER/STIFF LEG DERRICK OPERATOR TO OBSERVE/TEACH RELATED TO ALTERED CARDIOVASCULAR STATUS TO MINIMIZE COMPLICATIONS AND REDUCE HOSPITALIZATION. [code = CARDIOVASCULAR SYSTEM; RN TO ASSESS/TEACH, CONTRACT ENGINEER/STIFF LEG DERRICK OPERATOR TO OBSERVE/TEACH RELATED TO ALTERED CARDIOVASCULAR STATUS TO MINIMIZE COMPLICATIONS AND REDUCE HOSPITALIZATION.] Future Scheduled Test HYPERTENSI ON MANAGEMENT; RN TO ASSESS AND TEACH, CONTRACT ENGINEER/STIFF LEG DERRICK OPERATOR TO OBSERVE AND TEACH WARNING SIGNS AND SYMPTOMS TO AVOID HOSPITALIZATION. [code = HYPERTENSION MANAGEMENT; RN TO ASSESS AND TEACH, CONTRACT ENGINEER/STIFF LEG DERRICK OPERATOR TO OBSERVE AND TEACH WARNING SIGNS AND SYMPTOMS TO AVOID HOSPITALIZATION.] Future Scheduled Test HYPOTENSIO N MANAGEMENT; RN TO ASSESS AND TEACH/ CONTRACT ENGINEER /STIFF LEG DERRICK OPERATOR TO OBSERVE AND TEACH WARNING SIGNS AND SYMPTOMS TO AVOID HOSPITALIZATION. [code = HYPOTENSION MANAGEMENT; RN TO ASSESS AND TEACH/ CONTRACT ENGINEER /STIFF LEG DERRICK OPERATOR TO OBSERVE AND TEACH WARNING SIGNS AND SYMPTOMS TO AVOID HOSPITALIZATION.] Future Scheduled Test COVID-19 P OSITIVE/SYMPTOMATIC MANAGEMENT; RN TO ASSESS AND TEACH, CONTRACT ENGINEER/STIFF LEG DERRICK OPERATOR TO OBSERVE AND TEACH SIGNS OF COVID-19 AND PROVIDE EARLY INTERVENTIONS TO MINIMIZE RISK OF HOSPITALIZATION. [code = COVID-19 POSITIVE/SYMPTOMATIC MANAGEMENT; RN TO ASSESS AND TEACH, CONTRACT ENGINEER/STIFF LEG DERRICK OPERATOR TO OBSERVE AND TEACH SIGNS OF COVID-19 AND PROVIDE EARLY INTERVENTIONS TO MINIMIZE RISK OF HOSPITALIZATION.] Future Scheduled Test SKIN INTEG RITY RN TO ASSESS AND TEACH, CONTRACT ENGINEER/STIFF LEG DERRICK OPERATOR TO OBSERVE AND TEACH INTEGUMENTARY STATUS TO IDENTIFY CHANGES AND INTERVENE TO MINIMIZE COMPLICATIONS. PROVIDE SKILLED TEACHING OF GENERAL WOUND AND SKIN CARE AND PREVENTION RELATED TO POTENTIAL FOR OR ACTUAL ALTERED SKIN INTEGRITY. [code = SKIN INTEGRITY RN TO ASSESS AND TEACH, CONTRACT ENGINEER/STIFF LEG DERRICK OPERATOR TO OBSERVE AND TEACH INTEGUMENTARY STATUS TO IDENTIFY CHANGES AND INTERVENE TO MINIMIZE COMPLICATIONS. PROVIDE SKILLED TEACHING OF GENERAL WOUND AND SKIN CARE AND PREVENTION RELATED TO POTENTIAL FOR OR ACTUAL ALTERED SKIN INTEGRITY.] Future Scheduled Test PAIN MANAG EMENT; RN TO ASSESS AND TEACH, STIFF LEG DERRICK OPERATOR/CONTRACT ENGINEER TO OBSERVE AND TEACH AND PROVIDE EDUCATION ON PAIN MANAGEMENT TECHNIQUES. [code = PAIN MANAGEMENT; RN TO ASSESS AND TEACH, STIFF LEG DERRICK OPERATOR/CONTRACT ENGINEER TO OBSERVE AND TEACH AND PROVIDE EDUCATION ON PAIN MANAGEMENT TECHNIQUES.] Future Scheduled Test DIABETES M ANAGEMENT; RN TO ASSESS AND TEACH, STIFF LEG DERRICK OPERATOR/CONTRACT ENGINEER TO OBSERVE AND TEACH INSTRUCTIONS OF DIABETIC CARE TO INCLUDE: DIABETIC DIET, SKIN CARE, SIGNS AND SYMPTOMS OF HYPO/HYPERGLYCEMIA, PROPER ADMINISTRATION OF DIABETIC MEDICATION. RN/STIFF LEG DERRICK OPERATOR/CONTRACT ENGINEER TO INSTRUCT ON DIABETIC FOOT CARE AND MONITOR FOR SKIN LESIONS ON LOWER EXTREMITIES. BLOOD GLUCOSE TESTING 1 TIME DAILY. RN TO ASSESS AND TEACH, STIFF LEG DERRICK OPERATOR/CONTRACT ENGINEER TO OBSERVE AND TEACH PATIENT/CAREGIVER ABILITY TO PERFORM AND RECORD BLOOD GLUCOSE TESTING ORDERED AND TO REPORT ABNORMAL FINDINGS TO PHYSICIAN. RN/STIFF LEG DERRICK OPERATOR/CONTRACT ENGINEER MAY PERFORM BLOOD GLUCOSE TEST NEEDED. RN/STIFF LEG DERRICK OPERATOR/CONTRACT ENGINEER TO REPORT TO PHYSICIAN BLOOD GLUCOSE READINGS GREATER THAN 300 OR LESS THAN 70. RN/STIFF LEG DERRICK OPERATOR/CONTRACT ENGINEER TO INSTRUCT PATIENT ON IMPORTANCE OF HGBA1C MONITORING, KIDNEY FUNCTION TEST, EYE AND FOOT EXAMS. [code = DIABETES MANAGEMENT; RN TO ASSESS AND TEACH, STIFF LEG DERRICK OPERATOR/CONTRACT ENGINEER TO OBSERVE AND TEACH INSTRUCTIONS OF DIABETIC CARE TO INCLUDE: DIABETIC DIET, SKIN CARE, SIGNS AND SYMPTOMS OF HYPO/HYPERGLYCEMIA, PROPER ADMINISTRATION OF DIABETIC MEDICATION. RN/STIFF LEG DERRICK OPERATOR/CONTRACT ENGINEER TO INSTRUCT ON DIABETIC FOOT CARE AND MONITOR FOR SKIN LESIONS ON LOWER EXTREMITIES. BLOOD GLUCOSE TESTING 1 TIME DAILY. RN TO ASSESS AND TEACH, STIFF LEG DERRICK OPERATOR/CONTRACT ENGINEER TO OBSERVE AND TEACH PATIENT/CAREGIVER ABILITY TO PERFORM AND RECORD BLOOD GLUCOSE TESTING ORDERED AND TO REPORT ABNORMAL FINDINGS TO PHYSICIAN. RN/STIFF LEG DERRICK OPERATOR/CONTRACT ENGINEER MAY PERFORM BLOOD GLUCOSE TEST NEEDED. RN/STIFF LEG DERRICK OPERATOR/CONTRACT ENGINEER TO REPORT TO PHYSICIAN BLOOD GLUCOSE READINGS GREATER THAN 300 OR LESS THAN 70. RN/STIFF LEG DERRICK OPERATOR/CONTRACT ENGINEER TO INSTRUCT PATIENT ON IMPORTANCE OF HGBA1C MONITORING, KIDNEY FUNCTION TEST, EYE AND FOOT EXAMS.] Future Scheduled Test ANEMIA MAN AGEMENT; RN TO ASSESS AND TEACH, STIFF LEG DERRICK OPERATOR/CONTRACT ENGINEER TO OBSERVE AND TEACH AND PROVIDE EDUCATION ON ANEMIA. [code = ANEMIA MANAGEMENT; RN TO ASSESS AND TEACH, STIFF LEG DERRICK OPERATOR/CONTRACT ENGINEER TO OBSERVE AND TEACH AND PROVIDE EDUCATION ON ANEMIA.] Future Scheduled Test FALL REDUC TION MANAGEMENT; RN TO ASSESS AND OBSERVE, CONTRACT ENGINEER/STIFF LEG DERRICK OPERATOR TO OBSERVE FALL RISK FACTORS AND EDUCATE PATIENT/CAREGIVER ON STRATEGIES TO MINIMIZE THE RISK OF FALLING. [code = FALL REDUCTION MANAGEMENT; RN TO ASSESS AND OBSERVE, CONTRACT ENGINEER/STIFF LEG DERRICK OPERATOR TO OBSERVE FALL RISK FACTORS AND EDUCATE PATIENT/CAREGIVER ON STRATEGIES TO MINIMIZE THE RISK OF FALLING.] Future Scheduled Test PHYSICAL T HERAPIST TO EVALUATE FOR STRENGTH AND MOBILITY. [code = PHYSICAL THERAPIST TO EVALUATE FOR STRENGTH AND MOBILITY. ] Future Scheduled Test OCCUPATION AL THERAPIST TO EVALUATE FOR PROVISION OF ADLS. [code = OCCUPATIONAL THERAPIST TO EVALUATE FOR PROVISION OF ADLS. ] Future Scheduled Test AGENCY MAY PERFORM A RESUMPTION OF CARE VISIT FOLLOWING ANY HOSPITAL ADMISSION. PT TO EVALUATE, OBSERVE / ASSESS, AND MONITOR, CATHETER BUILDER TO OBSERVE AND MONITOR, PROVIDE SKILLED THERAPEUTIC INTERVENTION, ACTIVITY, EDUCATION, AND TRAINING TO ADDRESS; PT/CATHETER BUILDER TO PROVIDE GAIT TRAINING FOR IMPROVED MOBILITY AND /OR TO NORMALIZE GAIT PATTERN NEUROMUSCULAR RE-EDUCATION / BALANCE / POSTURAL CONTROL (PT) THERAPEUTIC EXERCISES AND ESTABLISHING A HOME EXERCISE PROGRAM (PT/CATHETER BUILDER) PT/CATHETER BUILDER TO PROVIDE STAIR TRAINING SIT TO/FROM STAND TRANSFERS (PT/CATHETER BUILDER) PT TO ASSESS / CATHETER BUILDER TO MONITOR FOR AND REPORT EARLY SIGNS OF ANTICOAGULANT TOXICITY TO THE PHYSICIAN AND/OR THE RN CLINICAL LOW PRESSURE BOILER OPERATOR FOR PHYSICIAN NOTIFICATION AND TO PROVIDE PATIENT/CAREGIVER EDUCATION ON ANTICOAGULANT THERAPY PT / CATHETER BUILDER TO MONITOR AND EDUCATE ON OXYGEN SATURATION DURING ADLS/IADLS, NOTIFY PHYSICIAN AND/OR THE RN CLINICAL LOW PRESSURE BOILER OPERATOR FOR PHYSICIAN NOTIFICATION AND IF O2 SATS BELOW PHYSICIAN ORDERED PARAMETERS AFTER 10 MIN OF REST PT / CATHETER BUILDER TO MONITOR FOR HYPO/HYPERGLYCEMIA AND CONDUCT ROUTINE FOOT INSPECTIONS. RECORD PATIENT REPORTED BLOOD SUGAR LEVELS AND NOTIFY PHYSICIAN AND/OR THE RN CLINICAL LOW PRESSURE BOILER OPERATOR FOR PHYSICIAN NOTIFICATION IF BLOOD SUGAR LEVELS ARE OUTSIDE ORDERED PARAMETERS. TEACH PATIENT/CAREGIVER ON DAILY FOOT INSPECTIONS PT TO ASSESS / CATHETER BUILDER TO MONITOR CARDIO/RESPIRATORY SYSTEM; AND NOTIFY THE PHYSICIAN AND/OR THE RN CLINICAL LOW PRESSURE BOILER OPERATOR FOR PHYSICIAN NOTIFICATION FOR EARLY SIGNS AND SYMPTOMS OF EXACERBATION OR DETERIORATION. PT/CATHETER BUILDER TO IDENTIFY FALL RISK FACTORS; EDUCATE THE PATIENT/CAREGIVER ON WAYS TO REDUCE FALL RISK FACTORS AND ESTABLISH HOME EXERCISE PROGRAM TO MINIMIZE FALL RISK. MAY TEACH THE PATIENT FLOOR RECOVERY WHEN CLINICALLY APPROPRIATE PT / CATHETER BUILDER MAY EDUCATE ON PAIN MANAGEMENT CLINICALLY INDICATED, INCLUDING NON-PHARMACOLOGICAL PAIN REDUCTION TECHNIQUES. [code = AGENCY MAY PERFORM A RESUMPTION OF CARE VISIT FOLLOWING ANY HOSPITAL ADMISSION. PT TO EVALUATE, OBSERVE / ASSESS, AND MONITOR, CATHETER BUILDER TO OBSERVE AND MONITOR, PROVIDE SKILLED THERAPEUTIC INTERVENTION, ACTIVITY, EDUCATION, AND TRAINING TO ADDRESS; PT/CATHETER BUILDER TO PROVIDE GAIT TRAINING FOR IMPROVED MOBILITY AND /OR TO NORMALIZE GAIT PATTERN NEUROMUSCULAR RE-EDUCATION / BALANCE / POSTURAL CONTROL (PT) THERAPEUTIC EXERCISES AND ESTABLISHING A HOME EXERCISE PROGRAM (PT/CATHETER BUILDER) PT/CATHETER BUILDER TO PROVIDE STAIR TRAINING SIT TO/FROM STAND TRANSFERS (PT/CATHETER BUILDER) PT TO ASSESS / CATHETER BUILDER TO MONITOR FOR AND REPORT EARLY SIGNS OF ANTICOAGULANT TOXICITY TO THE PHYSICIAN AND/OR THE RN CLINICAL LOW PRESSURE BOILER OPERATOR FOR PHYSICIAN NOTIFICATION AND TO PROVIDE PATIENT/CAREGIVER EDUCATION ON ANTICOAGULANT THERAPY PT / CATHETER BUILDER TO MONITOR AND EDUCATE ON OXYGEN SATURATION DURING ADLS/IADLS, NOTIFY PHYSICIAN AND/OR THE RN CLINICAL LOW PRESSURE BOILER OPERATOR FOR PHYSICIAN NOTIFICATION AND IF O2 SATS BELOW PHYSICIAN ORDERED PARAMETERS AFTER 10 MIN OF REST PT / CATHETER BUILDER TO MONITOR FOR HYPO/HYPERGLYCEMIA AND CONDUCT ROUTINE FOOT INSPECTIONS. RECORD PATIENT REPORTED BLOOD SUGAR LEVELS AND NOTIFY PHYSICIAN AND/OR THE RN CLINICAL LOW PRESSURE BOILER OPERATOR FOR PHYSICIAN NOTIFICATION IF BLOOD SUGAR LEVELS ARE OUTSIDE ORDERED PARAMETERS. TEACH PATIENT/CAREGIVER ON DAILY FOOT INSPECTIONS PT TO ASSESS / CATHETER BUILDER TO MONITOR CARDIO/RESPIRATORY SYSTEM; AND NOTIFY THE PHYSICIAN AND/OR THE RN CLINICAL LOW PRESSURE BOILER OPERATOR FOR PHYSICIAN NOTIFICATION FOR EARLY SIGNS AND SYMPTOMS OF EXACERBATION OR DETERIORATION. PT/CATHETER BUILDER TO IDENTIFY FALL RISK FACTORS; EDUCATE THE PATIENT/CAREGIVER ON WAYS TO REDUCE FALL RISK FACTORS AND ESTABLISH HOME EXERCISE PROGRAM TO MINIMIZE FALL RISK. MAY TEACH THE PATIENT FLOOR RECOVERY WHEN CLINICALLY APPROPRIATE PT / CATHETER BUILDER MAY EDUCATE ON PAIN MANAGEMENT CLINICALLY INDICATED, INCLUDING NON-PHARMACOLOGICAL PAIN REDUCTION TECHNIQUES. ] Goal Patient Goal - GET MY STRENG TH BACK Goal Provider Goal - A PLAN OF CARE WILL BE ESTABLISHED THAT MEETS THE PATIENTS NEEDS. PATIENT WILL DEMONSTRATE OXYGEN SATURATION WITHIN NORMAL LIMITS OR PATIENTS OPTIMAL LEVEL ESTABLISHED BY THE PHYSICIAN THROUGHOUT CARE. CHANGES TO CO-MORBID CONDITIONS AND ANY NEW CONDITIONS WILL BE IDENTIFIED AND REPORTED TO THE PHYSICIAN. Goal Provider Goal - PATIENT/CAREGIVER WILL VERBALIZE UNDERSTANDING OF SIGNS AND SYMPTOMS THAT PUT THE PATIENT AT RISK FOR HOSPITALIZATION /EMERGENCY ROOM VISITS, WHEN TO NOTIFY NURSE/PHYSICIAN OF COMPLICATIONS/DECLINE AND WHEN TO CALL 911. Goal Provider Goal - PATIENT/CAREGIVER TO VERBALIZE, AND CONSISTENTLY DEMONSTRATE EFFECTIVE, SAFE MANAGEMENT OF MEDICATION INCLUDING KNOWLEDGE OF EFFECTIVENESS, POTENTIAL SIDE EFFECTS AND DRUG REACTIONS AND WHEN TO CONTACT THE APPROPRIATE CARE PROVIDER. PATIENT/CAREGIVER WILL BE ABLE TO VERBALIZE UNDERSTANDING OF MEDICATION REGIMEN AND ACCURATELY TAKE MEDICATIONS PRESCRIBED WITHOUT ADVERSE EFFECTS BY EOE. Goal Provider Goal - PATIENT / CAREGIVER WILL VERBALIZE/DEMONSTRATE UNDERSTANDING OF MEASURES TO MANAGE ALTERED CARDIOVASCULAR STATUS BY EOE. Goal Provider Goal - PATIENT / CAREGIVER WILL VERBALIZE/DEMONSTRATE AN ABILITY TO ADHERE TO SELF-MANAGEMENT OF HTN TO MINIMIZE COMPLICATIONS AND AVOID HOSPITALIZATION BY END OF EPISODE. Goal Provider Goal - PATIENT/CAREGIVER WILL VERBALIZE/DEMONSTRATE ABILITY TO ADHERE TO SELF-MANAGEMENT OF HYPOTENSION TO MINIMIZE COMPLICATIONS AND AVOID HOSPITALIZATION BY THE END OF EPISODE. Goal Provider Goal - PATIENT / CAREGIVER WILL VERBALIZED/DEMONSTRATED AN ABILITY TO ADHERE TO COVID-19 SELF-MANAGEMENT TO MINIMIZE COMPLICATIONS AND AVOID HOSPITALIZATION BY END OF EPISODE. Goal Provider Goal - CHANGES IN SKIN INTEGRITY STATUS WILL BE IDENTIFIED AND REPORTED TO THE PHYSICIAN FOR PROMPT INTERVENTION. PATIENT / CAREGIVER WILL VERBALIZE/DEMONSTRATE ADEQUATE KNOWLEDGE OF INTEGUMENTARY STATUS AND APPROPRIATE MEASURES TO PROMOTE SKIN INTEGRITY AND PREVENT INJURY BY EOE. Goal Provider Goal - PATIENT / CAREGIVER WILL VERBALIZE / DEMONSTRATE UNDERSTANDING OF PAIN CONTROL MEASURES BY EOE. Goal Provider Goal - PATIENT / CAREGIVER WILL VERBALIZE / DEMONSTRATE AN ABILITY TO ADHERE TO SELF-MANAGEMENT OF DIABETES MANAGEMENT BY EOE. Goal Provider Goal - PATIENT/CAREGIVER WILL VERBALIZE UNDERSTANDING OF CARE AND MANAGEMENT OF ANEMIA BY END OF EPISODE. Goal Provider Goal - PATIENT/CAREGIVER WILL VERBALIZE/DEMONSTRATE UNDERSTANDING OF FALL RISK FACTORS AND IMPLEMENT STRATEGIES TO MINIMIZE FALL RISK. PATIENT/CAREGIVER WILL VERBALIZE/DEMONSTRATE AN ABILITY TO ADHERE TO FALL REDUCTION SELF-MANAGEMENT AND LIFE-STYLE CHANGES BY EOE. Goal Provider Goal - PT LTG: PATIENT WILL DEMONSTRATE REDUCED GAIT DEVIATIONS TO REDUCE THE RISK FOR FALLING AND MINIMIZE STRAIN ON KNEES/HIPS AND BACK EVIDENCED BY IMPROVED HEEL STRIKE, ADEQUATE STEP LENGTH AND CONSISTENT FOOT CLEARANCE BILATERALLY WITHOUT AD TO WALK INDEPENDENTLY IN ORDER TO ACCESS ALL AREAS OF THE HOME AND TRANSPORTATION WITHIN 9 WEEKS PT LTG: PATIENT WILL DEMONSTRATE REDUCED FALL RISK EVIDENCED BY TUG TEST (CUT SCORE >11 SECONDS INDICATES INCREASED FALL RISK) IMPROVING FROM 35 SECONDS TO 20 SECONDS WITHIN 9 WEEKS PT LTG: PATIENT WILL DEMONSTRATE IMPROVED FUNCTIONAL STRENGTH EVIDENCED BY FIVE TIMES SIT TO STAND TEST (CUT SCORE >12 SECONDS INDICATES AN INCREASED FALL RISK) IMPROVING FROM 26 SECONDS TO 15 SECONDS WITHIN 9 WEEKS PT LTG: PATIENT WILL DEMONSTRATE INCREASED STRENGTH OF BILATERAL LES FROM 3+/5 TO 4+/5 WITHIN 9 WEEKS IN ORDER TO IMPROVE SAFETY AND STABILITY WITH GAIT AND STANDING ACTIVITIES PT LTG: PATIENT WILL DEMONSTRATE IMPROVED ABILITY TO SAFELY NEGOTIATE STAIRS/RAMP FROM NT TO INDEPENDENT WITH RAIL IN ORDER TO SAFELY ENTER AND EXIT HOME WITHIN 9 WEEKS PT STG: PATIENT WILL DEMONSTRATE IMPROVED ABILITY TO PERFORM SIT TO/FROM STAND TRANSFERS TO REDUCE THE RISK OF SKIN BREAKDOWN AND REDUCE FALL RISK FROM SBA TO INDEPENDENT WITHIN 4 WEEKS PT LTG: PATIENT WILL NOT EXHIBIT SIGNS AND SYMPTOMS OF ANTICOAGULANT TOXICITY THROUGHOUT EPISODE OF CARE. PT LTG: PATIENT WILL MAINTAIN OXYGEN SATURATION WITHIN PHYSICIAN ORDERED PARAMETERS THROUGHOUT EPISODE OF CARE. PATIENTS BLOOD SUGAR WILL REMAIN WELL CONTROLLED WITH SELF-MANAGEMENT THROUGHOUT EPISODE OF CARE. PT LTG: PATIENT WILL NOT EXPERIENCE CARDIAC OR RESPIRATORY COMPLICATIONS THROUGHOUT THE EPISODE OF CARE. PT LTG: PATIENT/CAREGIVER WILL DEMONSTRATE ADHERENCE TO FALL REDUCTION SELF-MANAGEMENT AND REDUCING FALL RISK FACTORS TO MINIMIZE FALL RISK BY END OF EPISODE. PT LTG: PATIENT WILL BE INDEPENDENT WITH IMPLEMENTATION OF HEP WITHIN 4 WEEKS PT GOAL: PATIENT WILL DEMONSTRATE UNDERSTANDING OF PAIN MANAGEMENT TECHNIQUES BY END OF EPISODE. Encounters Start Date/Time End Date/Time Encounter Type Admission Type Attending [facility] Care Department Encounter ID Discharge Date Discharge Status Discharge Condition Discharge Reason Percent Goals Met 2024-08-01 00:00:00 2024-09-29 00:00:00 Outpatient NEW ADMISSION JAQUELINE WELDON [facility] [id number]
--- OUTSIDE RECORDS SUMMARY | 2024-08-13 08:03 | XMS_ITS | Encounter Summary ---
Author Organization [facility] Address [address] [place] [address] Care Team Providers Care Lay Out Former Name Role Phone Josy Chapman MD Primary Care Provider [phone] Encounter Details Date Type Department Care Team (Late st Contact Info) Description 07/29/[address] [facility] - Main Lab [address] [facility] [place] [address] James Marie MD [address] [place] [id number] Encounter for other general examination Social History Tobacco Use Types Packs/Day Years Used Date Smoking Tobacco: Never Smokeless Tobacco: Never Alcohol Use Standard Drinks/Week Comments No 0 (1 standard drink = 0.6 oz pur e alcohol) Sex and Gender Information Value Date Recorded Sex Assigned at Not on file Legal Sex Male 10:15 PM EST Gender Identity Not on file Sexual Orientation Not on file documented as of this encounter Plan of Treatment Not on file documented as of this encounter Procedures Procedure Name Priority Date/Time Associated Diagnosis Comments CBC WITH AUTO DIFFERENTIAL Routine 07/29/2024 5:37 AM EDT Encounter for other general examination CBC AND DIFFERENTIAL Routine 07/29/2024 5:37 AM EDT Encounter for other general examination BASIC METABOLIC PANEL Routine 07/29/2024 5:37 AM EDT Encounter for other general examination documented in this encounter Results * (ABNORMAL) CBC auto differential (07/29/2024 5:37 AM EDT) [facility] WBC 8.6 4.8 - 10.8 K/mcL LAB HEMETOLOGY METHOD 07/29/2024 9:42 AM [facility] RBC 3.30(L) 4.50 - 5.50 M/mcL LAB HEMETOLOGY METHOD 07/29/2024 9:42 AM [facility] Hemoglobin 10.5(L) 13.5 - 17.5 g/dL LAB HEMETOLOGY METHOD 07/29/2024 9:42 AM [facility] LAB Hematocrit 31.4(L) 42.0 - 54.0 % LAB HEMETOLOGY METHOD 07/29/2024 9:42 AM [facility] MCV 94.9 79.0 - 98.0 FL LAB HEMETOLOGY METHOD 07/29/2024 9:42 AM [facility] MCH 31.7 27.0 - 32.0 pcg LAB HEMETOLOGY METHOD 07/29/2024 9:42 AM [facility] LAB MCHC 33.4 32.0 - 37.0 g/dL LAB HEMETOLOGY METHOD 07/29/2024 9:42 AM [facility] RDW 14.0 11.0 - 15.0 % LAB HEMETOLOGY METHOD 07/29/2024 9:42 AM [facility] LAB Platelets 385 130 - 400 K/mcL LAB HEMETOLOGY METHOD 07/29/2024 9:42 AM [facility] MPV 10.7 7.0 - 11.0 FL LAB HEMETOLOGY METHOD 07/29/2024 9:42 AM [facility] NRBC 0.0 <1.0 % LAB HEMETOLOGY METHOD 07/29/2024 9:42 AM [facility] NRBC Absolute 0.00 <0.10 K/mcL LAB HEMETOLOGY METHOD 07/29/2024 9:42 AM [facility] Neutrophils Relative 64.2 % LAB HEMETOLOGY METHOD 07/29/2024 9:42 AM [facility] Lymphocytes Relative 20.2 % LAB HEMETOLOGY METHOD 07/29/2024 9:42 AM [facility] Monocytes Relative 12.2 % LAB HEMETOLOGY METHOD 07/29/2024 9:42 AM [facility] Eosinophils Relative 2.6 % LAB HEMETOLOGY METHOD 07/29/2024 9:42 AM [facility] Basophils Relative 0.1 % LAB HEMETOLOGY METHOD 07/29/2024 9:42 AM [facility] Immature Granulocytes Relative 0.7 % LAB HEMETOLOGY METHOD 07/29/2024 9:42 AM [facility] Neutrophils Absolute 5.49 1.50 - 7.00 K/mcL LAB HEMETOLOGY METHOD 07/29/2024 9:42 AM [facility] Lymphocytes Absolute 1.73 1.00 - 5.00 K/mcL LAB HEMETOLOGY METHOD 07/29/2024 9:42 AM [facility] Monocytes Absolute 1.04(H) 0.20 - 1.00 K/mcL LAB HEMETOLOGY METHOD 07/29/2024 9:42 AM [facility] Eosinophils Absolute 0.22 0.00 - 0.50 K/mcL LAB HEMETOLOGY METHOD 07/29/2024 9:42 AM [facility] Basophils Absolute 0.01 0.00 - 0.20 K/mcL LAB HEMETOLOGY METHOD 07/29/2024 9:42 AM [facility] Immature Granulocytes Absolute 0.06(H) 0.00 - 0.03 K/mcL LAB HEMETOLOGY METHOD 07/29/2024 9:42 AM [facility] Blood Venous blood specimen / Unknown Venipuncture / Unknown 07/29/2024 5:37 AM EDT 07/29/2024 8:42 AM EDT us James Marie MD LAB BLOOD ORDERABLES Final Resu lt [facility] [address] [place] [address], [place] [phone] * (ABNORMAL) Basic metabolic panel (07/29/2024 5:37 AM EDT) Pathologist [facility] Sodium 138 133 - 145 mmol/L LAB CHEMISTRY METHOD 07/29/2024 9:39 AM [facility] Potassium 4.3 3.5 - 5.5 mmol/L LAB CHEMISTRY METHOD 07/29/2024 9:39 AM [facility] Chloride 107 96 - 110 mmol/L LAB CHEMISTRY METHOD 07/29/2024 9:39 AM [facility] CO2 23 21 - 32 mmol/L LAB CHEMISTRY METHOD 07/29/2024 9:39 AM [facility] Anion Gap 8 3 - 11 LAB CHEMISTRY METHOD 07/29/2024 9:39 AM [facility] Glucose 115(H) 70 - 100 mg/dL LAB CHEMISTRY METHOD 07/29/2024 9:39 AM [facility] BUN 24 5 - 25 mg/dL LAB CHEMISTRY METHOD 07/29/2024 9:39 AM [facility] Creatinine 1.11 0.70 - 1.30 mg/dL LAB CHEMISTRY METHOD 07/29/2024 9:39 AM [facility] LAB eGFR 70 >=60 mL/min/1. 73m2 LAB CHEMISTRY METHOD 07/29/2024 9:39 AM [facility] LAB Comment:Calculation based on the??Chronic Kidney Disease Epidemiology Collaboration (CKD-EPI) equation refit??without adjustment for race. BUN/Creatinine Ratio 21.6 LAB CHEMISTRY METHOD 07/29/2024 9:39 AM EDT [facility] Calcium 9.4 8.5 - 10.5 mg/dL LAB CHEMISTRY METHOD 07/29/2024 9:39 AM EDT [facility] Blood Venous blood specimen / Unknown Venipuncture / Unknown 07/29/2024 5:37 AM EDT 07/29/2024 8:42 AM EDT us James Marie MD LAB BLOOD ORDERABLES Final Resu lt [facility] [address] [place] [address], documented in this encounter Visit Diagnoses Diagnosis Encounter for other general examination documented in this encounter Care Teams Lay Out Former Relationship Specialty Start Date End Date Josy Chapman MD [address] [place] [address] PCP - General Internal Medicine 07/21/24 documented as of this encounter
--- OUTSIDE RECORDS SUMMARY | 2024-08-13 08:03 | XMS_ITS | Clinical Summary ---
Author Organization [address] [facility] Address [address] [place] [address] Phone Care Team Providers Care Sock Liner Name Role Phone Josy Chapman MD Primary Care Provider [phone] Encounters Date Type Department Care Team Description 07/29/2024 Lab Requisition [facility] Lab [address] [place] [address] James Marie MD Encounter for other general examination 07/27/2024 Lab Requisition [facility] Lab [address] [place] [address] James Marie MD Encounter for other general examination 07/24/2024 Lab Requisition [facility] Lab [address] [place] [address] James Marie MD Encounter for other general examination 07/21/2024 Lab Requisition [facility] Lab [address] [place] [address] James Marie MD Encounter for other general examination from Last 3 Months Surgical History Surgery Date Site/Laterality Comments OTHER SURGICAL HISTORY Right PROCEDURE: HISTORY OTHER; COMMENT: orchiectomy KNEE SURGERY PROCEDURE: HISTORICAL KNEE SURGERY OTHER SURGICAL HISTORY PROCEDURE: RI CABG W/ARTERIAL GRAFT FOUR/>ARTERIAL GRAFTS Medical History Medical History Date Comments Benign colonic polyp 10/26/2017 DX:Benign c olonic polyp CAD (coronary artery disease) 06/09/2017 DX :CAD (coronary artery disease); COMMENT: Old MN; Stent Constipation 08/09/2017 DX:Constipation DDD (degenerative disc disea se), cervical 12/14/2012 DX:DDD (degenerative disc di sease), cervical; COMMENT: C5-7 Depression 10/26/2017 DX:Depression Diverticulosis 10/26/2017 DX:Diverticulosi s History of spinal cord injury 05/12/2009 DX :History of spinal cord injury; COMMENT: L2 fractured vertebrae Hyperlipidemia 10/26/2017 DX:Hyperlipidemi a Hypertension 10/26/2017 DX:Hypertension Moderate asthma without complication 2017 DX:Moderate asthma without complication Proteinuria 11/03/2016 DX:Proteinuria Pulmonary emphysema (CMS/HCC) 03/17/2017 DX :Pulmonary emphysema (HCC) 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) 10/26/2017 DX:Type 2 diabetes mellitus with renal manifestations (HCC) Family History Medical History Relation Name Comments Diabetes Mother Relation Name Status Comments Father Mother Social History Tobacco Use Types Packs/Day Years Used Date Smoking Tobacco: Never Smokeless Tobacco: Never Alcohol Use Standard Drinks/Week Comments No 0 (1 standard drink = 0.6 oz pur e alcohol) Sex and Gender Information Value Date Recorded Sex Assigned at Not on file Legal Sex Male 10:15 PM EST Gender Identity Not on file Sexual Orientation Not on file Obstetrics History Plan of Treatment Health Maintenance Due Date Last Done Comments Diabetes: Annual Foot Exam 1960 Diabetes: Annual Retina Eye Exam 1960 DTaP,Tdap,and Td Vaccines (1 - Tdap) 1969 Zoster Vaccines (1 of 2) 2000 RSV Immunization Adult Patients (1 - Risk 60-74 years 1-dose series) 2010 Pneumococcal Vaccine: 50+ Years (3 of 3 - PCV20 or PCV21) 04/28/2020 04/28/2015, 08/12/2014 Abdominal Aortic Aneurysm (AAA) Screen 06/06/2023 Cholesterol Screening (Lipid Panel) 06/06/2023 Colorectal Cancer Screening: Colonoscopy 06/06/2023 Depression Screening 06/06/2023 Diabetes: Annual Urine Albumin-Creatinine Ratio (uACR) 06/06/2023 Diabetes: Blood Sugar Control Test (HGBA1C) 06/06/2023 Falls Risk Assessment 06/06/2023 Hepatitis C Screening 06/06/2023 Medicare Annual Wellness Visit 06/06/2023 Social Influencers of Health Screening 06/06/2023 COVID-19 Vaccine ( season) 2024 Influenza Vaccine (Season Ended) 2025 02/21/2019, 03/20/2018, 02/13/2014 Diabetes: Annual GFR (Glomerular Filtration Rate) 07/29/2025 07/29/2024, 07/27/2024, 07/24/2024, Additional history exists Hypertension/CHF/CAD Annual BMP Blood Test 07/29/2025 07/29/2024, 07/27/2024, 07/24/2024, Additional history exists HIB Vaccines Aged Out No longer eligi ble based on patient's age to complete this topic HPV Vaccines Aged Out No longer eligi ble based on patient's age to complete this topic Hepatitis A Vaccines Aged Out No long er eligible based on patient's age to complete this topic Hepatitis B Vaccines Aged Out No long er eligible based on patient's age to complete this topic IPV Vaccines Aged Out No longer eligi ble based on patient's age to complete this topic MMR Vaccines Aged Out No longer eligi ble based on patient's age to complete this topic Meningococcal ACWY Vaccine Aged Out N o longer eligible based on patient's age to complete this topic Meningococcal B Vaccine Aged Out No l onger eligible based on patient's age to complete this topic RSV Immunization Patients Under 20 months Aged Out No longer eligible based on patient's age to complete this topic Varicella Vaccines Aged Out No longer eligible based on patient's age to complete this topic Procedures Procedure Name Priority Date/Time Associated Diagnosis Comments CBC WITH AUTO DIFFERENTIAL Routine 07/29/2024 5:37 AM EDT Encounter for other general examination CBC AND DIFFERENTIAL Routine 07/29/2024 5:37 AM EDT Encounter for other general examination BASIC METABOLIC PANEL Routine 07/29/2024 5:37 AM EDT Encounter for other general examination CBC WITH AUTO DIFFERENTIAL Routine 07/27/2024 6:30 AM EDT Encounter for other general examination MAGNESIUM Routine 07/27/2024 6:30 AM EDT Encounter for other general examination CBC AND DIFFERENTIAL Routine 07/27/2024 6:30 AM EDT Encounter for other general examination BASIC METABOLIC PANEL Routine 07/27/2024 6:30 AM EDT Encounter for other general examination CBC WITH AUTO DIFFERENTIAL Routine 07/24/2024 2:56 PM EDT Encounter for other general examination MAGNESIUM Routine 07/24/2024 2:56 PM EDT Encounter for other general examination CBC AND DIFFERENTIAL Routine 07/24/2024 2:56 PM EDT Encounter for other general examination COMPREHENSIVE METABOLIC PANEL Routine 07/24/2024 2:56 PM EDT Encounter for other general examination CBC WITH AUTO DIFFERENTIAL Routine 07/21/2024 7:03 AM EDT Encounter for other general examination MAGNESIUM Routine 07/21/2024 7:03 AM EDT Encounter for other general examination CBC AND DIFFERENTIAL Routine 07/21/2024 7:03 AM EDT Encounter for other general examination COMPREHENSIVE METABOLIC PANEL Routine 07/21/2024 7:03 AM EDT Encounter for other general examination from Last 3 Months Results * (ABNORMAL) CBC auto differential (07/29/2024 5:37 AM EDT) Only the most recent of4 resultswithin the time period is included. WBC 8.6 4.8 - 10.8 K/mcL LAB HEMETOLOGY METHOD 07/29/2024 9:42 AM EDT [facility] RBC 3.30(L) 4.50 - 5.50 M/mcL LAB HEMETOLOGY METHOD 07/29/2024 9:42 AM EDT [facility] Hemoglobin 10.5(L) 13.5 - 17.5 g/dL LAB HEMETOLOGY METHOD 07/29/2024 9:42 AM [facility] Hematocrit 31.4(L) 42.0 - 54.0 % LAB HEMETOLOGY METHOD 07/29/2024 9:42 AM [facility] LAB MCV 94.9 79.0 - 98.0 FL LAB HEMETOLOGY METHOD 07/29/2024 9:42 AM [facility] LAB MCH 31.7 27.0 - 32.0 pcg LAB HEMETOLOGY METHOD 07/29/2024 9:42 AM [facility] MCHC 33.4 32.0 - 37.0 g/dL LAB HEMETOLOGY METHOD 07/29/2024 9:42 AM [facility] RDW 14.0 11.0 - 15.0 % LAB HEMETOLOGY METHOD 07/29/2024 9:42 AM [facility] Platelets 385 130 - 400 K/mcL LAB HEMETOLOGY METHOD 07/29/2024 9:42 AM [facility] MPV 10.7 7.0 - 11.0 FL LAB HEMETOLOGY METHOD 07/29/2024 9:42 AM [facility] NRBC 0.0 <1.0 % LAB HEMETOLOGY METHOD 07/29/2024 9:42 AM [facility] NRBC Absolute 0.00 <0.10 K/mcL LAB HEMETOLOGY METHOD 07/29/2024 9:42 AM [facility] Neutrophils Relative 64.2 % LAB HEMETOLOGY METHOD 07/29/2024 9:42 AM [facility] Lymphocytes Relative 20.2 % LAB HEMETOLOGY METHOD 07/29/2024 9:42 AM [facility] Monocytes Relative 12.2 % LAB HEMETOLOGY METHOD 07/29/2024 9:42 AM [facility] Eosinophils Relative 2.6 % LAB HEMETOLOGY METHOD 07/29/2024 9:42 AM EDT [facility] Basophils Relative 0.1 % LAB HEMETOLOGY METHOD 07/29/2024 9:42 AM EDT [facility] Immature Granulocytes Relative 0.7 % LAB HEMETOLOGY METHOD 07/29/2024 9:42 AM EDT [facility] Neutrophils Absolute 5.49 1.50 - 7.00 K/mcL LAB HEMETOLOGY METHOD 07/29/2024 9:42 AM EDT [facility] Lymphocytes Absolute 1.73 1.00 - 5.00 K/mcL LAB HEMETOLOGY METHOD 07/29/2024 9:42 AM EDT [facility] Monocytes Absolute 1.04(H) 0.20 - 1.00 K/mcL LAB HEMETOLOGY METHOD 07/29/2024 9:42 AM EDT [facility] Eosinophils Absolute 0.22 0.00 - 0.50 K/mcL LAB HEMETOLOGY METHOD 07/29/2024 9:42 AM EDT [facility] Basophils Absolute 0.01 0.00 - 0.20 K/mcL LAB HEMETOLOGY METHOD 07/29/2024 9:42 AM EDT [facility] Immature Granulocytes Absolute 0.06(H) 0.00 - 0.03 K/mcL LAB HEMETOLOGY METHOD 07/29/2024 9:42 AM EDT [facility] Blood Venous blood specimen / Unknown Venipuncture / Unknown 07/29/2024 5:37 AM EDT 07/29/2024 8:42 AM EDT us James Marie MD LAB BLOOD ORDERABLES Final Resu lt [facility] [address] [place] [address], * (ABNORMAL) Basic metabolic panel (07/29/2024 5:37 AM EDT) Only the most recent of2 resultswithin the time period is included. Sodium 138 133 - 145 mmol/L LAB CHEMISTRY METHOD 07/29/2024 9:39 AM [facility] Potassium 4.3 3.5 - 5.5 mmol/L LAB CHEMISTRY METHOD 07/29/2024 9:39 AM [facility] Chloride 107 96 - 110 mmol/L LAB CHEMISTRY METHOD 07/29/2024 9:39 AM [facility] CO2 23 21 - 32 mmol/L LAB CHEMISTRY METHOD 07/29/2024 9:39 AM [facility] Anion Gap 8 3 - 11 LAB CHEMISTRY METHOD 07/29/2024 9:39 AM [facility] Glucose 115(H) 70 - 100 mg/dL LAB CHEMISTRY METHOD 07/29/2024 9:39 AM [facility] BUN 24 5 - 25 mg/dL LAB CHEMISTRY METHOD 07/29/2024 9:39 AM [facility] Creatinine 1.11 0.70 - 1.30 mg/dL LAB CHEMISTRY METHOD 07/29/2024 9:39 AM [facility] eGFR 70 >=60 mL/min/1. 73m2 LAB CHEMISTRY METHOD 07/29/2024 9:39 AM [facility] Comment:Calculation based on the??Chronic Kidney Disease Epidemiology Collaboration (CKD-EPI) equation refit??without adjustment for race. BUN/Creatinine Ratio 21.6 LAB CHEMISTRY METHOD 07/29/2024 9:39 AM [facility] Calcium 9.4 8.5 - 10.5 mg/dL LAB CHEMISTRY METHOD 07/29/2024 9:39 AM [facility] Blood Venous blood specimen / Unknown Venipuncture / Unknown 07/29/2024 5:37 AM EDT 07/29/2024 8:42 AM EDT us James Marie MD LAB BLOOD ORDERABLES Final Resu lt Performing Organization Address [facility]/ZIP Co de Phone Number [facility] [address] [place] [address], [place] [phone] * Magnesium (07/27/2024 6:30 AM EDT) Only the most recent of3 resultswithin the time period is included. Pathologist [facility] Magnesium 2.0 1.9 - 2.6 mg/dL LAB CHEMISTRY METHOD 07/27/2024 10:54 AM EDT [facility] Blood Venous blood specimen / Unknown Venipuncture / Unknown 07/27/2024 6:30 AM EDT 07/27/2024 9:10 AM EDT us James Marie MD LAB BLOOD ORDERABLES Final Resu lt Performing Organization Address [facility] Co de Phone Number [facility] [address] [place] [address], [place] [phone] * (ABNORMAL) Comprehensive metabolic panel (07/24/2024 2:56 PM EDT) Only the most recent of2 resultswithin the time period is included. Sodium 141 133 - 145 mmol/L LAB CHEMISTRY METHOD 07/24/2024 6:22 PM EDT [facility] Potassium 4.4 3.5 - 5.5 mmol/L LAB CHEMISTRY METHOD 07/24/2024 6:22 PM EDT [facility] Chloride 111(H) 96 - 110 mmol/L LAB CHEMISTRY METHOD 07/24/2024 6:22 PM EDT [facility] CO2 22 21 - 32 mmol/L LAB CHEMISTRY METHOD 07/24/2024 6:22 PM EDT [facility] Anion Gap 8 3 - 11 LAB CHEMISTRY METHOD 07/24/2024 6:22 PM [facility] Glucose 114(H) 70 - 100 mg/dL LAB CHEMISTRY METHOD 07/24/2024 6:22 PM [facility] BUN 21 5 - 25 mg/dL LAB CHEMISTRY METHOD 07/24/2024 6:22 PM [facility] Creatinine 0.98 0.70 - 1.30 mg/dL LAB CHEMISTRY METHOD 07/24/2024 6:22 PM [facility] eGFR 81 >=60 mL/min/1. 73m2 LAB CHEMISTRY METHOD 07/24/2024 6:22 PM [facility] Comment:Calculation based on the??Chronic Kidney Disease Epidemiology Collaboration (CKD-EPI) equation refit??without adjustment for race. BUN/Creatinine Ratio 21.4 LAB CHEMISTRY METHOD 07/24/2024 6:22 PM [facility] Calcium 9.0 8.5 - 10.5 mg/dL LAB CHEMISTRY METHOD 07/24/2024 6:22 PM [facility] AST (SGOT) 31 10 - 42 unit/L LAB CHEMISTRY METHOD 07/24/2024 6:22 PM [facility] ALT (SGPT) 41 10 - 60 unit/L LAB CHEMISTRY METHOD 07/24/2024 6:22 PM [facility] Alkaline Phosphatase 104 42 - 121 unit/L LAB CHEMISTRY METHOD 07/24/2024 6:22 PM [facility] Total Protein 5.9(L) 6.0 - 8.0 g/dL LAB CHEMISTRY METHOD 07/24/2024 6:22 PM [facility] Albumin 2.7(L) 3.2 - 5.0 g/dL LAB CHEMISTRY METHOD 07/24/2024 6:22 PM [facility] Total Bilirubin 1.3 0.0 - 1.4 mg/dL LAB CHEMISTRY METHOD 07/24/2024 6:22 PM [facility] Blood Venous blood specimen / Unknown Venipuncture / Unknown 07/24/2024 2:56 PM EDT 07/24/2024 3:30 PM EDT us James Marie MD LAB BLOOD ORDERABLES Final Resu lt [facility] [address] [place] [address], from Last 3 Months Insurance MEDICARE Care Teams Sock Liner Relationship Specialty Start Date End Date Josy Chapman MD [address] [place] [address] PCP - General Internal Medicine 07/21/24
--- OUTSIDE RECORDS SUMMARY | 2024-08-13 08:04 | XMS_ITS | Encounter Summary ---
Author Organization [facility] Address [address] [place] [address] Care Team Providers Care Rail Director Name Role Phone Josy Chapman MD Primary Care Provider [phone] Encounter Details Date Type Department Care Team (Late st Contact Info) Description 07/21/2024 Lab Requisition [facility] - Main Lab [address] [facility] [place] [address] James Marie MD [address] [place] [address] Encounter for other general examination Social History [...] Diagnosis Comments CBC WITH AUTO DIFFERENTIAL Routine 07/21/2024 7:03 AM EDT Encounter for other general examination CBC AND DIFFERENTIAL Routine 07/21/2024 7:03 AM EDT Encounter for other general examination MAGNESIUM Routine 07/21/2024 7:03 AM EDT Encounter for other general examination COMPREHENSIVE METABOLIC PANEL Routine 07/21/2024 7:03 AM EDT Encounter for other general examination documented in this encounter Results * (ABNORMAL) CBC auto differential (07/21/2024 7:03 AM EDT) [facility] WBC 8.3 4.8 - 10.8 K/mcL LAB HEMETOLOGY METHOD 07/21/2024 10:07 AM [facility] RBC 2.90(L) 4.50 - 5.50 M/mcL LAB HEMETOLOGY METHOD 07/21/2024 10:07 AM [facility] Hemoglobin 8.8(L) 13.5 - 17.5 g/dL LAB HEMETOLOGY METHOD 07/21/2024 10:07 AM [facility] Hematocrit 26.3(L) 42.0 - 54.0 % LAB HEMETOLOGY METHOD 07/21/2024 10:07 AM [facility] MCV 92.0 79.0 - 98.0 FL LAB HEMETOLOGY METHOD 07/21/2024 10:07 AM [facility] MCH 30.8 27.0 - 32.0 pcg LAB HEMETOLOGY METHOD 07/21/2024 10:07 AM [facility] MCHC 33.5 32.0 - 37.0 g/dL LAB HEMETOLOGY METHOD 07/21/2024 10:07 AM [facility] RDW 12.8 11.0 - 15.0 % LAB HEMETOLOGY METHOD 07/21/2024 10:07 AM [facility] Platelets 260 130 - 400 K/mcL LAB HEMETOLOGY METHOD 07/21/2024 10:07 AM [facility] MPV 10.6 7.0 - 11.0 FL LAB HEMETOLOGY METHOD 07/21/2024 10:07 AM [facility] NRBC 0.0 <1.0 % LAB HEMETOLOGY METHOD 07/21/2024 10:07 AM [facility] NRBC Absolute 0.00 <0.10 K/mcL LAB HEMETOLOGY METHOD 07/21/2024 10:07 AM [facility] Neutrophils Relative 63.5 % LAB HEMETOLOGY METHOD 07/21/2024 10:07 AM [facility] Lymphocytes Relative 15.3 % LAB HEMETOLOGY METHOD 07/21/2024 10:07 AM [facility] Monocytes Relative 14.4 % LAB HEMETOLOGY METHOD 07/21/2024 10:07 AM [facility] Eosinophils Relative 6.2 % LAB HEMETOLOGY METHOD 07/21/2024 10:07 AM [facility] Basophils Relative 0.1 % LAB HEMETOLOGY METHOD 07/21/2024 10:07 AM [facility] Immature Granulocytes Relative 0.5 % LAB HEMETOLOGY METHOD 07/21/2024 10:07 AM [facility] Neutrophils Absolute 5.27 1.50 - 7.00 K/mcL LAB HEMETOLOGY METHOD 07/21/2024 10:07 AM [facility] Lymphocytes Absolute 1.27 1.00 - 5.00 K/mcL LAB HEMETOLOGY METHOD 07/21/2024 10:07 AM [facility] Monocytes Absolute 1.19(H) 0.20 - 1.00 K/mcL LAB HEMETOLOGY METHOD 07/21/2024 10:07 AM [facility] Eosinophils Absolute 0.51(H) 0.00 - 0.50 K/mcL LAB HEMETOLOGY METHOD 07/21/2024 10:07 AM [facility] Basophils Absolute 0.01 0.00 - 0.20 K/mcL LAB HEMETOLOGY METHOD 07/21/2024 10:07 AM [facility] Immature Granulocytes Absolute 0.04(H) 0.00 - 0.03 K/mcL LAB HEMETOLOGY METHOD 07/21/2024 10:07 AM EDT [facility] Blood Venous blood specimen / Unknown Venipuncture / Unknown 07/21/2024 7:03 AM EDT 07/21/2024 9:17 AM EDT us James Marie MD LAB BLOOD ORDERABLES Final Resu lt Performing Organization Address [facility]/ZIP Co de Phone Number [facility] [address] [place] [address], [place] [phone] * (ABNORMAL) Magnesium (07/21/2024 7:03 AM EDT) Pathologist [facility] Magnesium 1.5(L) 1.9 - 2.6 mg/dL LAB CHEMISTRY METHOD 07/21/2024 10:23 AM EDT [facility] Blood Venous blood specimen / Unknown Venipuncture / Unknown 07/21/2024 7:03 AM EDT 07/21/2024 9:17 AM EDT us James Marie MD LAB BLOOD ORDERABLES Final Resu lt Performing Organization Address [facility] de Phone Number [facility] [address] [place] [address], [place] [phone] * (ABNORMAL) Comprehensive metabolic panel (07/21/2024 7:03 AM EDT) Pathologist [facility] Sodium 138 133 - 145 mmol/L LAB CHEMISTRY METHOD 07/21/2024 10:23 AM EDT [facility] Potassium 4.0 3.5 - 5.5 mmol/L LAB CHEMISTRY METHOD 07/21/2024 10:23 AM EDT [facility] Chloride 108 96 - 110 mmol/L LAB CHEMISTRY METHOD 07/21/2024 10:23 AM EDT [facility] CO2 20(L) 21 - 32 mmol/L LAB CHEMISTRY METHOD 07/21/2024 10:23 AM EDT [facility] Anion Gap 10 3 - 11 LAB CHEMISTRY METHOD 07/21/2024 10:23 AM [facility] Glucose 98 70 - 100 mg/dL LAB CHEMISTRY METHOD 07/21/2024 10:23 AM [facility] BUN 15 5 - 25 mg/dL LAB CHEMISTRY METHOD 07/21/2024 10:23 AM [facility] Creatinine 0.90 0.70 - 1.30 mg/dL LAB CHEMISTRY METHOD 07/21/2024 10:23 AM [facility] eGFR 90 >=60 mL/min/1. 73m2 LAB CHEMISTRY METHOD 07/21/2024 10:23 AM [facility] Comment:Calculation based on the??Chronic Kidney Disease Epidemiology Collaboration (CKD-EPI) equation refit??without adjustment for race. BUN/Creatinine Ratio 16.7 LAB CHEMISTRY METHOD 07/21/2024 10:23 AM [facility] Calcium 8.7 8.5 - 10.5 mg/dL LAB CHEMISTRY METHOD 07/21/2024 10:23 AM [facility] AST (SGOT) 42 10 - 42 unit/L LAB CHEMISTRY METHOD 07/21/2024 10:23 AM [facility] ALT (SGPT) 41 10 - 60 unit/L LAB CHEMISTRY METHOD 07/21/2024 10:23 AM [facility] Alkaline Phosphatase 82 42 - 121 unit/L LAB CHEMISTRY METHOD 07/21/2024 10:23 AM [facility] Total Protein 5.4(L) 6.0 - 8.0 g/dL LAB CHEMISTRY METHOD 07/21/2024 10:23 AM [facility] Albumin 2.6(L) 3.2 - 5.0 g/dL LAB CHEMISTRY METHOD 07/21/2024 10:23 AM [facility] Total Bilirubin 1.6(H) 0.0 - 1.4 mg/dL LAB CHEMISTRY METHOD 07/21/2024 10:23 AM EDT [facility] Blood Venous blood specimen / Unknown Venipuncture / Unknown 07/21/2024 7:03 AM EDT 07/21/2024 9:17 AM EDT us James Marie MD LAB BLOOD ORDERABLES Final Resu lt [facility] [address] [place] [address], documented in this encounter Visit Diagnoses Diagnosis Encounter for other general examination documented in this encounter Care Teams Rail Director Relationship Specialty Start Date End Date Josy Chapman MD [address] [place] [address] PCP - General Internal Medicine 07/21/24 documented as of this encounter
--- OUTSIDE RECORDS SUMMARY | 2024-08-13 08:04 | XMS_ITS | Encounter Summary ---
Author Organization [facility] Address [address] [place] [address] Care Team Providers Care Dry Cleaning Machine Operator Name Role Phone Josy Chapman MD Primary Care Provider [phone] Encounter Details Date Type Department Care Team (Late st Contact Info) Description 07/24/2024 Lab Requisition [facility] - Main Lab [address] [facility] [place] [address] James Marie MD [address] [place] [id number] Encounter for other general examination Social History [...] Diagnosis Comments CBC WITH AUTO DIFFERENTIAL Routine 07/24/2024 2:56 PM EDT Encounter for other general examination CBC AND DIFFERENTIAL Routine 07/24/2024 2:56 PM EDT Encounter for other general examination MAGNESIUM Routine 07/24/2024 2:56 PM EDT Encounter for other general examination COMPREHENSIVE METABOLIC PANEL Routine 07/24/2024 2:56 PM EDT Encounter for other general examination documented in this encounter Results * (ABNORMAL) CBC auto differential (07/24/2024 2:56 PM EDT) [facility] WBC 7.0 4.8 - 10.8 K/mcL LAB HEMETOLOGY METHOD 07/24/2024 3:50 PM EDT [facility] RBC 3.00(L) 4.50 - 5.50 M/mcL LAB HEMETOLOGY METHOD 07/24/2024 3:50 PM EDT [facility] Hemoglobin 9.3(L) 13.5 - 17.5 g/dL LAB HEMETOLOGY METHOD 07/24/2024 3:50 PM EDT [facility] Hematocrit 28.3(L) 42.0 - 54.0 % LAB HEMETOLOGY METHOD 07/24/2024 3:50 PM EDT [facility] MCV 94.6 79.0 - 98.0 FL LAB HEMETOLOGY METHOD 07/24/2024 3:50 PM EDT [facility] MCH 31.1 27.0 - 32.0 pcg LAB HEMETOLOGY METHOD 07/24/2024 3:50 PM EDT [facility] MCHC 32.9 32.0 - 37.0 g/dL LAB HEMETOLOGY METHOD 07/24/2024 3:50 PM EDT [facility] RDW 13.2 11.0 - 15.0 % LAB HEMETOLOGY METHOD 07/24/2024 3:50 PM EDT [facility] Platelets 335 130 - 400 K/mcL LAB HEMETOLOGY METHOD 07/24/2024 3:50 PM EDT [facility] MPV 10.3 7.0 - 11.0 FL LAB HEMETOLOGY METHOD 07/24/2024 3:50 PM EDT [facility] NRBC 0.0 <1.0 % LAB HEMETOLOGY METHOD 07/24/2024 3:50 PM EDT [facility] NRBC Absolute 0.00 <0.10 K/mcL LAB HEMETOLOGY METHOD 07/24/2024 3:50 PM EDT [facility] Neutrophils Relative 62.7 % LAB HEMETOLOGY METHOD 07/24/2024 3:50 PM EDT [facility] Lymphocytes Relative 16.9 % LAB HEMETOLOGY METHOD 07/24/2024 3:50 PM EDT [facility] Monocytes Relative 15.9 % LAB HEMETOLOGY METHOD 07/24/2024 3:50 PM EDT [facility] Eosinophils Relative 3.7 % LAB HEMETOLOGY METHOD 07/24/2024 3:50 PM EDT [facility] Basophils Relative 0.1 % LAB HEMETOLOGY METHOD 07/24/2024 3:50 PM EDT [facility] Immature Granulocytes Relative 0.7 % LAB HEMETOLOGY METHOD 07/24/2024 3:50 PM EDT [facility] Neutrophils Absolute 4.40 1.50 - 7.00 K/mcL LAB HEMETOLOGY METHOD 07/24/2024 3:50 PM EDT [facility] Lymphocytes Absolute 1.19 1.00 - 5.00 K/mcL LAB HEMETOLOGY METHOD 07/24/2024 3:50 PM EDT [facility] Monocytes Absolute 1.12(H) 0.20 - 1.00 K/mcL LAB HEMETOLOGY METHOD 07/24/2024 3:50 PM EDT [facility] Eosinophils Absolute 0.26 0.00 - 0.50 K/mcL LAB HEMETOLOGY METHOD 07/24/2024 3:50 PM EDT [facility] Basophils Absolute 0.01 0.00 - 0.20 K/mcL LAB HEMETOLOGY METHOD 07/24/2024 3:50 PM EDT [facility] Immature Granulocytes Absolute 0.05(H) 0.00 - 0.03 K/mcL LAB HEMETOLOGY METHOD 07/24/2024 3:50 PM EDT [facility] Blood Venous blood specimen / Unknown Venipuncture / Unknown 07/24/2024 2:56 PM EDT 07/24/2024 3:30 PM EDT us James Marie MD LAB BLOOD ORDERABLES Final Resu lt Performing Organization Address City/[facility]/ZIP Co de Phone Number [facility] [address] [place] [address], [place] [phone] * (ABNORMAL) Magnesium (07/24/2024 2:56 PM EDT) Magnesium 1.7(L) 1.9 - 2.6 mg/dL LAB CHEMISTRY METHOD 07/24/2024 6:22 PM EDT [facility] Blood Venous blood specimen / Unknown Venipuncture / Unknown 07/24/2024 2:56 PM EDT 07/24/2024 3:30 PM EDT us James Marie MD LAB BLOOD ORDERABLES Final Resu lt Performing Organization Address [facility]/ZIP Co de Phone Number [facility] [address] [place] [address], [place] [phone] * (ABNORMAL) Comprehensive metabolic panel (07/24/2024 2:56 PM EDT) Sodium 141 133 - 145 mmol/L LAB CHEMISTRY METHOD 07/24/2024 6:22 PM EDT [facility] Potassium 4.4 3.5 - 5.5 mmol/L LAB CHEMISTRY METHOD 07/24/2024 6:22 PM EDT [facility] Chloride 111(H) 96 - 110 mmol/L LAB CHEMISTRY METHOD 07/24/2024 6:22 PM EDT [facility] CO2 22 21 - 32 mmol/L LAB CHEMISTRY METHOD 07/24/2024 6:22 PM EDT [facility] Anion Gap 8 3 - 11 LAB CHEMISTRY METHOD 07/24/2024 6:22 PM [facility] Glucose 114(H) 70 - 100 mg/dL LAB CHEMISTRY METHOD 07/24/2024 6:22 PM [facility] BUN 21 5 - 25 mg/dL LAB CHEMISTRY METHOD 07/24/2024 6:22 PM [facility] Creatinine 0.98 0.70 - 1.30 mg/dL LAB CHEMISTRY METHOD 07/24/2024 6:22 PM [facility] eGFR 81 >=60 mL/min/1. 73m2 LAB CHEMISTRY METHOD 07/24/2024 6:22 PM [facility] Comment:Calculation based on the??Chronic Kidney Disease Epidemiology Collaboration (CKD-EPI) equation refit??without adjustment for race. BUN/Creatinine Ratio 21.4 LAB CHEMISTRY METHOD 07/24/2024 6:22 PM [facility] Calcium 9.0 8.5 - 10.5 mg/dL LAB CHEMISTRY METHOD 07/24/2024 6:22 PM [facility] AST (SGOT) 31 10 - 42 unit/L LAB CHEMISTRY METHOD 07/24/2024 6:22 PM [facility] ALT (SGPT) 41 10 - 60 unit/L LAB CHEMISTRY METHOD 07/24/2024 6:22 PM [facility] Alkaline Phosphatase 104 42 - 121 unit/L LAB CHEMISTRY METHOD 07/24/2024 6:22 PM [facility] Total Protein 5.9(L) 6.0 - 8.0 g/dL LAB CHEMISTRY METHOD 07/24/2024 6:22 PM [facility] Albumin 2.7(L) 3.2 - 5.0 g/dL LAB CHEMISTRY METHOD 07/24/2024 6:22 PM [facility] Total Bilirubin 1.3 0.0 - 1.4 mg/dL LAB CHEMISTRY METHOD 07/24/2024 6:22 PM EDT [facility] Blood Venous blood specimen / Unknown Venipuncture / Unknown 07/24/2024 2:56 PM EDT 07/24/2024 3:30 PM EDT us James Marie MD LAB BLOOD ORDERABLES Final Resu lt [facility] [address] [place] [address], documented in this encounter Visit Diagnoses Diagnosis Encounter for other general examination documented in this encounter Care Teams Dry Cleaning Machine Operator Relationship Specialty Start Date End Date Josy Chapman MD [address] [place] [address] PCP - General Internal Medicine 07/21/24 documented as of this encounter
--- OUTSIDE RECORDS SUMMARY | 2024-08-13 08:04 | XMS_ITS | Encounter Summary ---
Author Organization [facility] Address [address] [place] [address] Care Team Providers Care Printing Roller Handler Name Role Phone Josy Chapman MD Primary Care Provider [phone] Encounter Details Date Type Department Care Team (Late st Contact Info) Description 07/27/2024 Lab Requisition [facility] - Main Lab [address] [facility] [place] [address] James Marie MD [address] [place] [phone] Encounter for other general examination Social History [...] Diagnosis Comments CBC WITH AUTO DIFFERENTIAL Routine 07/27/2024 6:30 AM EDT Encounter for other general examination CBC AND DIFFERENTIAL Routine 07/27/2024 6:30 AM EDT Encounter for other general examination MAGNESIUM Routine 07/27/2024 6:30 AM EDT Encounter for other general examination BASIC METABOLIC PANEL Routine 07/27/2024 6:30 AM EDT Encounter for other general examination documented in this encounter Results * (ABNORMAL) CBC auto differential (07/27/2024 6:30 AM EDT) [facility] WBC 8.7 4.8 - 10.8 K/mcL LAB HEMETOLOGY METHOD 07/27/2024 10:25 AM [facility] RBC 3.00(L) 4.50 - 5.50 M/mcL LAB HEMETOLOGY METHOD 07/27/2024 10:25 AM [facility] Hemoglobin 9.6(L) 13.5 - 17.5 g/dL LAB HEMETOLOGY METHOD 07/27/2024 10:25 AM [facility] Hematocrit 28.6(L) 42.0 - 54.0 % LAB HEMETOLOGY METHOD 07/27/2024 10:25 AM [facility] MCV 94.7 79.0 - 98.0 FL LAB HEMETOLOGY METHOD 07/27/2024 10:25 AM [facility] MCH 31.8 27.0 - 32.0 pcg LAB HEMETOLOGY METHOD 07/27/2024 10:25 AM [facility] MCHC 33.6 32.0 - 37.0 g/dL LAB HEMETOLOGY METHOD 07/27/2024 10:25 AM [facility] RDW 13.9 11.0 - 15.0 % LAB HEMETOLOGY METHOD 07/27/2024 10:25 AM [facility] Platelets 390 130 - 400 K/mcL LAB HEMETOLOGY METHOD 07/27/2024 10:25 AM [facility] MPV 10.7 7.0 - 11.0 FL LAB HEMETOLOGY METHOD 07/27/2024 10:25 AM [facility] NRBC 0.0 <1.0 % LAB HEMETOLOGY METHOD 07/27/2024 10:25 AM [facility] NRBC Absolute 0.00 <0.10 K/mcL LAB HEMETOLOGY METHOD 07/27/2024 10:25 AM [facility] Neutrophils Relative 60.4 % LAB HEMETOLOGY METHOD 07/27/2024 10:25 AM [facility] Lymphocytes Relative 22.9 % LAB HEMETOLOGY METHOD 07/27/2024 10:25 AM [facility] Monocytes Relative 12.4 % LAB HEMETOLOGY METHOD 07/27/2024 10:25 AM [facility] Eosinophils Relative 3.3 % LAB HEMETOLOGY METHOD 07/27/2024 10:25 AM [facility] Basophils Relative 0.2 % LAB HEMETOLOGY METHOD 07/27/2024 10:25 AM [facility] Immature Granulocytes Relative 0.8 % LAB HEMETOLOGY METHOD 07/27/2024 10:25 AM [facility] Neutrophils Absolute 5.25 1.50 - 7.00 K/mcL LAB HEMETOLOGY METHOD 07/27/2024 10:25 AM [facility] Lymphocytes Absolute 1.99 1.00 - 5.00 K/mcL LAB HEMETOLOGY METHOD 07/27/2024 10:25 AM [facility] Monocytes Absolute 1.08(H) 0.20 - 1.00 K/mcL LAB HEMETOLOGY METHOD 07/27/2024 10:25 AM [facility] Eosinophils Absolute 0.29 0.00 - 0.50 K/mcL LAB HEMETOLOGY METHOD 07/27/2024 10:25 AM [facility] Basophils Absolute 0.02 0.00 - 0.20 K/mcL LAB HEMETOLOGY METHOD 07/27/2024 10:25 AM [facility] Immature Granulocytes Absolute 0.07(H) 0.00 - 0.03 K/mcL LAB HEMETOLOGY METHOD 07/27/2024 10:25 AM EDT [facility] Blood Venous blood specimen / Unknown Venipuncture / Unknown 07/27/2024 6:30 AM EDT 07/27/2024 9:10 AM EDT us James Marie MD LAB BLOOD ORDERABLES Final Resu lt Performing Organization Address City/[facility]/ZIP Co de Phone Number [facility] [address] [place] [address], [place] [phone] * Magnesium (07/27/2024 6:30 AM EDT) Pathologist [facility] Magnesium 2.0 1.9 - 2.6 mg/dL LAB CHEMISTRY METHOD 07/27/2024 10:54 AM EDT [facility] Blood Venous blood specimen / Unknown Venipuncture / Unknown 07/27/2024 6:30 AM EDT 07/27/2024 9:10 AM EDT us James Marie MD LAB BLOOD ORDERABLES Final Resu lt Performing Organization Address City/[facility]/ZIP Co de Phone Number [facility] [address] [place] [address], [place] [phone] * (ABNORMAL) Basic metabolic panel (07/27/2024 6:30 AM EDT) Pathologist [facility] Sodium 137 133 - 145 mmol/L LAB CHEMISTRY METHOD 07/27/2024 10:54 AM EDT [facility] Potassium 4.4 3.5 - 5.5 mmol/L LAB CHEMISTRY METHOD 07/27/2024 10:54 AM EDT [facility] Chloride 106 96 - 110 mmol/L LAB CHEMISTRY METHOD 07/27/2024 10:54 AM EDT [facility] CO2 23 21 - 32 mmol/L LAB CHEMISTRY METHOD 07/27/2024 10:54 AM EDT [facility] Anion Gap 8 3 - 11 LAB CHEMISTRY METHOD 07/27/2024 10:54 AM T [facility] Glucose 102(H) 70 - 100 mg/dL LAB CHEMISTRY METHOD 07/27/2024 10:54 AM [facility] BUN 25 5 - 25 mg/dL LAB CHEMISTRY METHOD 07/27/2024 10:54 AM [facility] Creatinine 1.08 0.70 - 1.30 mg/dL LAB CHEMISTRY METHOD 07/27/2024 10:54 AM T [facility] eGFR 72 >=60 mL/min/1. 73m2 LAB CHEMISTRY METHOD 07/27/2024 10:54 AM T [facility] Comment:Calculation based on the??Chronic Kidney Disease Epidemiology Collaboration (CKD-EPI) equation refit??without adjustment for race. BUN/Creatinine Ratio 23.1 LAB CHEMISTRY METHOD 07/27/2024 10:54 AM [facility] Calcium 9.2 8.5 - 10.5 mg/dL LAB CHEMISTRY METHOD 07/27/2024 10:54 AM [facility] Blood Venous blood specimen / Unknown Venipuncture / Unknown 07/27/2024 6:30 AM EDT 07/27/2024 9:10 AM EDT us James Marie MD LAB BLOOD ORDERABLES Final Resu lt [facility] [address] [place] [address], documented in this encounter Visit Diagnoses Diagnosis Encounter for other general examination documented in this encounter Care Teams Printing Roller Handler Relationship Specialty Start Date End Date Josy Chapman MD [address] [place] [address] PCP - General Internal Medicine 07/21/24 documented as of this encounter
--- NOTE | 2024-08-13 08:05 | A.OFFPC_ITS ---
Vital Signs 08/13/24 08:06 Height 6 ft 1.5 in Weight 170 lb BMI 22.1 BP 110/70 Blood Pressure Location Rt brachial Position Sitting Respiration 18 Pulse 70 Pulse Source Pulse Oximeter Temp 97.8 F Temp Source Oral Pulse Oximetry (%) 98 Oxygen Delivery Method Room Air Intake Visit Reasons: Annual PE/Secondary covers Intake Note: Pt is here today for PE. Allergies Tetanus Vaccines and Toxoid [Tetanus] Allergy (Intermediate, Verified 08/13/24 08:11) DIAPHORESIS/STIFFNESS tetanus and diphtheria toxoids Allergy (Unknown, Verified 08/13/24 08:11) fever,swelling Medication List - Last Reconciled 08/13/24 by Josy Chapman MD aspirin 81 mg PO DAILY atorvastatin 80 mg PO DAILY erenumab-aooe mg subcut fludrocortisone 0.2 mg PO DAILY folic acid 1 mg PO DAILY insulin glargine (Lantus Solostar U-100 Insulin) 10 units subcut DAILY magnesium oxide 400 mg PO DAILY midodrine mg PO mirtazapine 15 mg PO BEDTIME multivitamin 1 tab PO DAILY pantoprazole 40 mg PO DAILY paroxetine HCl 40 mg PO DAILY pen needle, diabetic (BD Ultra-Fine Short Pen Needle) USE TO INJECT INSULIN 4 TIMES PER DAY topiramate 150 mg PO [facility] Tobacco use date assessed: 08/13/24 Fall risk assessment: 2 + Falls in past year Last assessed Fall Risk: 08/13/24 Dental Screening Dental Screen Date: 08/13/24 Did you have a dental visit in the last 12 months?: No Did you have a dental problem in the last 6 months where you did not have access to dental care?: No Was dental information given to patient?: Patient declined HPI Annual PE/Secondary covers HPI Details Patient presents for physical. Hypertension insulin-dependent diabetes chronic depression PTSD controlled on current medications. [facility] Medical History Muscular weakness SOB (shortness of breath) Otitis externa DM type 2 (diabetes mellitus, type 2) Migraine Poor balance Sleep apnea Tremor Coronary artery disease Hyperlipidemia Cerumen impaction Chronic depression HTN (hypertension) Surgical History H/O colonoscopy History of surgery History of hand surgery Hx of CABG History of back surgery History of cervical discectomy Family History Father No problems noted. Mother Diabetes Mental health disorder Substance use disorder Social History Housing: House Alcohol intake: never Patient Tobacco Use Status: Never used Tobacco e-Cigarette/Vaping Use: Never Used service: Yes Current occupational status: retired Cognitive needs: No Hearing needs: No Vision needs: No Questionnaire PHQ-9 Over the last 2 weeks, how often have you been bothered by any of the following problems? 1. Little interest or pleasure in doing things: not at all 2. Feeling down, depressed, or hopeless: not at all 3. Trouble falling or staying asleep, or sleeping too much: not at all 4. Feeling tired or having little energy: several days 5. Poor appetite or overeating: not at all 6. Feeling bad about yourself - or that you are a failure or have let yourself or your family down: not at all 7. Trouble concentrating on things, such as reading the newspaper or watching television: not at all 8. Moving or speaking so slowly that other people could have noticed. Or the opposite - being so fidgety or restless that you have been moving around a lot more than usual: not at all 9. Thoughts that you would be better off or of hurting yourself in some way: not at all Total score: 1 Depression Screening Interpretation: Negative Depression Screening Done: Yes 34358 - PHQ-9 Billing: Yes Source: Developed by Drs. Pato Nguyen, Mana Dotson, Mohamud Agustin and colleagues, with an educational kevin from [employer]. Thrive Questionnaire Date Thrive assessed: 08/13/24 I am a: Patient What is your living situation today?: I have a steady place to live Within the past 12 months, did the food you bought not last and you didn't have the money to get more?: Never true Within the past 12 months, did you worry whether your food would run out before you got money to buy more?: Never true Do you have trouble paying for medicines?: No Do you have trouble getting transportation to medical appointments?: Yes Do you have trouble paying your heating and electricity bill?: No Do you have trouble taking care of your child, family member or friend?: No Do you have trouble with day-to-day activities such as bathing, preparing meals, shopping, managing finances, etc.?: No Are you currently unemployed and looking for a job?: No Are you interested in more education?: No Please select the resources that you would like help with: None Currently or been in a relationship where the following occur: No concerns reported THRIVE Score: 1 AUDIT C Alcohol Use Questionnaire (AUDIT-C) 1. How often do you have a drink containing alcohol?: Never 3. How often do you have six or more drinks on one occasion?: Never Total Score: 0 SONYA-7 AMB Questionnaire SONYA-7 Date SONYA - 7 assessed: 08/13/24 Feeling nervous, anxious, or on edge: 0 = Not at all Not being able to stop or control worryin = Not at all Worrying too much about different things: 0 = Not at all Trouble relaxin = Not at all Being so restless that it is hard to sit still: 0 = Not at all Becoming easily annoyed or irritable: 0 = Not at all Feeling afraid as if something awful might happen: 0 = Not at all Total SONYA-7 score (0-4 normal; 5-9 mild; 10-14 moderate; 15-21 severe): 0 Source: Developed by Drs. Pato Nguyen, Mana Dotson, Mohamud Agustin and colleagues, with an educational kevin from [employer]. SONYA-7 Assessment Billing SONYA-7 Assessment Tool: SONYA-7 Assessment 43102 Review of Systems Const All systems reviewed & are unremarkable except as noted in HPI and below Eyes Reports no additional complaints ENT Reports no additional complaints Card Reports no additional complaints Resp Reports no additional complaints GI Reports no additional complaints Reports no additional complaints Physical exam (Primary Care) Vital Signs: Last Vital Signs Temp 97.8 F 08/13/24 08:06 Pulse 70 08/13/24 08:06 Resp 18 08/13/24 08:06 BP 110/70 08/13/24 08:06 Pulse Ox 98 08/13/24 08:06 Oxygen Delivery Method Room Air 08/13/24 08:06 BMI result Body Mass Index 22.1 Tobacco/Smoking Status: Tobacco use Status Tobacco use date assessed 08/13/24 08/13/24 08:19 Patient Tobacco Use Status Never used Tobacco 08/13/24 08:08 e-Cigarette/Vaping Use Never Used 08/13/24 08:08 PHQ-9: PHQ-9 Score PHQ-9: Total score 1 08/13/24 09:08 Depression Screening Interpretation: Negative Thrive Assessment: Date of Thrive Assessment Date Thrive assessed 08/13/24 08/13/24 08:19 Currently or been in a relationship where the following occur: No concerns reported Const General: no acute distress HENMT Head: Yes normal to inspection Face and sinus: Yes normal facial exam Neck Neck: Yes no lymphadenopathy and Yes supple Resp Effort & Inspection: normal respiratory effort Auscultation: clear to auscultation bilaterally Cardio Rhythm: regular rhythm Heart sounds: S1 normal heart sound present and S2 normal heart sound present GI Inspection: Yes normal to inspection Palpation (GI): Soft to palpation Percussion: Yes normal to percussion Auscultation: normal bowel sounds Immunizations pneumoc 20-nel conj-dip cr(PF) 0.5 mL IM syringe Performing Provider: Josy Chapman MD Performing Location: [facility] [place] [facility] Administered by: SHANA Mabry on 08/13/24 09:08 Dose Route Admin Location Dispensed Lot Number Expiration Date [facility] Shafting Cleaner 0.5 mL IM Right Deltoid 0.5 mL [id number] 07/05/25 [id number] [employer]/PFIZER VIS Given Date VIS Provided VIS Publication Date 08/13/24 Single Vaccine 21 Eligibility Eligibility Date Funding Source Not [facility] Eligible 08/13/24 Private Coding Level of Care Code Est Pt Prev Care >65y(09107) Diagnoses Postconcussion syndrome F07.81 DM type 2 (diabetes mellitus, type 2) E11.9 Tremor R25.1 Coronary artery disease I25.10 KOFI (obstructive sleep apnea) G47.33 Annual physical exam Z00.00 Postural hypotension I95.1 Additional Codes SONYA-7 Assessment Billing - SONYA-7 Assessment Tool: SONYA-7 Assessment [id number] ([id number]) PHQ-9 - 95678 - PHQ-9 Billing: Yes ([id number]) Assessment & Plan Assessment & Plan (1) Postconcussion syndrome: Comment: Established with Neurology Code(s): F07.81 - Postconcussional syndrome Category: Medical Plan: Continue current medications (2) DM type 2 (diabetes mellitus, type 2): Code(s): E11.9 - Type 2 diabetes mellitus without complications Category: Medical Plan: Continue insulin, ADA diet return for fasting blood work including A1c (3) Tremor: Comment: Established with Neurology Code(s): R25.1 - Tremor, unspecified Category: Medical Plan: Follow-up with neurology (4) Coronary artery disease: Comment: s/p CABG 05/2019, cardiac cath 08/27, Dr. Morris, multiple stenosis in coronary arteries, no intervention, medical management Code(s): I25.10 - Atherosclerotic heart disease of [place] coronary artery without angina pectoris Category: Medical Plan: Continue atorvastatin beta joyce follow-up with Cardiology (5) KOFI (obstructive sleep apnea): Comment: on Bpap, f/u with sleep medicine Code(s): G47.33 - Obstructive sleep apnea (adult) (pediatric) Category: Medical Plan: Follow-up with sleep medicine on Bipap (6) Annual physical exam: Code(s): Z00.00 - Encounter for general adult medical examination without abnormal findings Category: Medical Plan: Well-balanced diet regular physical activity discussed with the patient (7) Postural hypotension: Comment: On fludrocortisone and midodrine Code(s): I95.1 - Orthostatic hypotension Category: Medical Plan: Continue current medications follow-up with Cardiology Orders: Orders Pneumococcal 20 Immunization Today Z23 - Encounter for immunization Referrals Neurology Referral F07.81 - Postconcussional syndrome Medications: New midodrine 10 mg PO TID 270 tabs 3RF fludrocortisone 0.1 mg PO DAILY 90 tabs 1RF
[2024-08-13 08:06] VITALS: BP 110/70; PULSE 70; RESP 18; TEMP 36.6; O2SAT 98; BMI 22.1
== END 2024-08-13 09:12 | disposition home or self-care (01) ==
LOC: HO.HMCC 07:59
PROVIDERS: PCP Internal Medicine; Visit Provider Internal Medicine
DX: Z00.00 Encounter for general adult medical examination without abnormal findings (principal); E11.9 Type 2 diabetes mellitus without complications; F07.81 Postconcussional syndrome; R25.1 Tremor, unspecified; I25.10 Atherosclerotic heart disease of native coronary artery without angina pectoris; G47.33 Obstructive sleep apnea (adult) (pediatric); I95.1 Orthostatic hypotension; Z23 Encounter for immunization

== ENCOUNTER → 2024-08-13 07:59 | Outpatient (BNVA) | payer MEDICARE, OTHER, SELFPAY | PROVIDERS: PCP Internal Medicine; Visit Provider Internal Medicine | DX: Z00.00 Encounter for general adult medical examination without abnormal findings (principal); I10 Essential (primary) hypertension; F43.10 Post-traumatic stress disorder, unspecified; F07.81 Postconcussional syndrome; E11.9 Type 2 diabetes mellitus without complications; R25.1 Tremor, unspecified; I25.10 Atherosclerotic heart disease of native coronary artery without angina pectoris; G47.33 Obstructive sleep apnea (adult) (pediatric); I95.1 Orthostatic hypotension; Z23 Encounter for immunization; Z79.4 Long term (current) use of insulin | CPT/HCPCS: 90471; 90677; 96127; 99397 ==

== ENCOUNTER 2024-08-28 13:37 | Outpatient (AMB) | payer MEDICARE, OTHER, SELFPAY ==
[2024-08-28 14:06] VITALS: BP 106/70; PULSE 68; RESP 18; TEMP 36.9; O2SAT 97; BMI 22.3
--- NOTE | 2024-08-28 14:06 | A.OFFPC_ITS ---
Vital Signs 08/28/24 14:06 Height 6 ft 1.5 in Weight 171 lb BMI 22.3 BP 106/70 Blood Pressure Location Lt brachial Position Sitting Respiration 18 Pulse 68 Pulse Source Pulse Oximeter Temp 98.4 F Temp Source Oral Pulse Oximetry (%) 97 Oxygen Delivery Method Room Air Intake Visit Reasons: follow up Allergies Tetanus Vaccines and Toxoid [Tetanus] Allergy (Intermediate, Verified 08/28/24 14:19) DIAPHORESIS/STIFFNESS tetanus and diphtheria toxoids Allergy (Unknown, Verified 08/28/24 14:19) fever,swelling Medication List - Last Reconciled 08/28/24 by Josy Chapman MD aspirin 81 mg PO DAILY atorvastatin 80 mg PO DAILY calcium carbonate-vitamin D3 500 mg-5 mcg (200 unit) (Os-Dinh 500 + D3) 1 tab PO DAILY fludrocortisone 0.1 mg PO DAILY folic acid 1 mg PO DAILY insulin glargine (Lantus Solostar U-100 Insulin) 10 units subcut DAILY magnesium oxide 400 mg PO DAILY metoprolol succinate ER 25 mg PO DAILY midodrine 10 mg PO TID mirtazapine 15 mg PO BEDTIME multivitamin 1 tab PO DAILY pantoprazole 40 mg PO DAILY paroxetine HCl 40 mg PO DAILY pen needle, diabetic (BD Ultra-Fine Short Pen Needle) USE TO INJECT INSULIN 4 TIMES PER DAY topiramate 150 mg PO .[facility] Tobacco use date assessed: 08/28/24 Dental Screening Dental Screen Date: 08/13/24 HPI follow up HPI Details PATIENT PRESENTS FOR THE FOLLOW-UP OF POSTERIOR HYPERTENSION CONTROLLED ON FLUDROCORTISONE AND MIDODRINE. PATIENT'S HAS BEEN CHECKING HIS BLOOD PRESSURE and giving extra midodrine if it is less than 90 systolic. Patient denies any recent falls. Type 2 diabetes is well-controlled on insulin and patient denies hypoglycemia. [facility] Medical History Muscular weakness SOB (shortness of breath) Otitis externa DM type 2 (diabetes mellitus, type 2) Migraine Poor balance Sleep apnea Tremor Coronary artery disease Hyperlipidemia Cerumen impaction Chronic depression HTN (hypertension) Surgical History H/O colonoscopy History of surgery History of hand surgery Hx of CABG History of back surgery History of cervical discectomy Family History Father No problems noted. Mother Diabetes Mental health disorder Substance use disorder Social History Housing: House Alcohol intake: never Patient Tobacco Use Status: Never used Tobacco e-Cigarette/Vaping Use: Never Used service: Yes Current occupational status: retired Cognitive needs: No Hearing needs: No Vision needs: No Questionnaire Thrive Questionnaire Date Thrive assessed: 08/07/24 I am a: Patient What is your living situation today?: I have a steady place to live Within the past 12 months, did the food you bought not last and you didn't have the money to get more?: Never true Within the past 12 months, did you worry whether your food would run out before you got money to buy more?: Never true Do you have trouble paying for medicines?: No Do you have trouble getting transportation to medical appointments?: Yes Do you have trouble paying your heating and electricity bill?: No Do you have trouble taking care of your child, family member or friend?: No Do you have trouble with day-to-day activities such as bathing, preparing meals, shopping, managing finances, etc.?: No Are you currently unemployed and looking for a job?: No Are you interested in more education?: No Please select the resources that you would like help with: None Currently or been in a relationship where the following occur: No concerns reported THRIVE Score: 1 SONYA-7 AMB Questionnaire SONYA-7 Date SONYA - 7 assessed: 08/13/24 Source: Developed by Drs. Pato Nguyen, Mana Dotson, Mohamud Agustin and colleagues, with an educational kevin from [employer]. Review of Systems Const All systems reviewed & are unremarkable except as noted in HPI and below Eyes Reports no additional complaints ENT Reports no additional complaints Card Reports no additional complaints Resp Reports no additional complaints GI Reports no additional complaints Reports no additional complaints Physical exam (Primary Care) Vital Signs: Last Vital Signs Temp 98.4 F 08/28/24 14:06 Pulse 68 08/28/24 14:06 Resp 18 08/28/24 14:06 BP 106/70 08/28/24 14:06 Pulse Ox 97 08/28/24 14:06 Oxygen Delivery Method Room Air 08/28/24 14:06 BMI result Body Mass Index 22.3 Tobacco/Smoking Status: Tobacco use Status Tobacco use date assessed 08/28/24 08/28/24 14:26 Patient Tobacco Use Status Never used Tobacco 08/28/24 14:06 e-Cigarette/Vaping Use Never Used 08/28/24 14:06 Thrive Assessment: Date of Thrive Assessment Date Thrive assessed 08/07/24 08/28/24 14:06 Currently or been in a relationship where the following occur: No concerns reported Const General: no acute distress HENMT Head: Yes normal to inspection Ears: hearing grossly normal bilaterally Throat: Yes posterior oropharynx normal Eyes General: appearance normal, both eyes and all related structures Neck Neck: Yes no lymphadenopathy and Yes supple Resp Effort & Inspection: normal respiratory effort Auscultation: clear to auscultation bilaterally Cardio Rhythm: regular rhythm Heart sounds: S1 normal heart sound present and S2 normal heart sound present GI Inspection: Yes normal to inspection Palpation (GI): Soft to palpation Percussion: Yes normal to percussion Auscultation: normal bowel sounds Coding Level of Care Code Est Pt Level 4 (53455) Diagnoses Hyperlipidemia E78.5 DM type 2 (diabetes mellitus, type 2) E11.9 Postural hypotension I95.1 Assessment & Plan Assessment & Plan (1) Hyperlipidemia: Code(s): E78.5 - Hyperlipidemia, unspecified Category: Medical Plan: Continue atorvastatin (2) DM type 2 (diabetes mellitus, type 2): Code(s): E11.9 - Type 2 diabetes mellitus without complications Category: Medical Plan: Most recent A1c was 5.6. Continue current treatment ADA diet regular physical activity (3) Postural hypotension: Comment: On fludrocortisone and midodrine Code(s): I95.1 - Orthostatic hypotension Category: Medical Plan: Continue fludrocortisone and midodrine and follow-up with Cardiology. Patient will return in 6 months with a fasting labs before Orders: Orders Complete Blood Count Auto Diff Today E11.9 - Type 2 diabetes mellitus without complications, E78.5 - Hyperlipidemia, unspecified, I95.1 - Orthostatic hypotension Complete Blood Count Auto Diff 6 Months E11.9 - Type 2 diabetes mellitus without complications, E78.5 - Hyperlipidemia, unspecified, F07.81 - Postconcussional syndrome, I95.1 - Orthostatic hypotension Hemoglobin A1c 6 Months E11.9 - Type 2 diabetes mellitus without complications, E78.5 - Hyperlipidemia, unspecified, F07.81 - Postconcussional syndrome, I95.1 - Orthostatic hypotension Lipid Panel 6 Months E11.9 - Type 2 diabetes mellitus without complications, E78.5 - Hyperlipidemia, unspecified, F07.81 - Postconcussional syndrome, I95.1 - Orthostatic hypotension TSH reflex Free T4 6 Months E11.9 - Type 2 diabetes mellitus without complications, E78.5 - Hyperlipidemia, unspecified, F07.81 - Postconcussional syndrome, I95.1 - Orthostatic hypotension Comprehensive Met. Panel Today E11.9 - Type 2 diabetes mellitus without complications, E78.5 - Hyperlipidemia, unspecified, I95.1 - Orthostatic hypotension Comprehensive [place]. Panel Fast 6 Months E11.9 - Type 2 diabetes mellitus without complications, E78.5 - Hyperlipidemia, unspecified, F07.81 - Postconcussional syndrome, I95.1 - Orthostatic hypotension Microalbumin, Random (w Creat) 6 Months E11.9 - Type 2 diabetes mellitus without complications, E78.5 - Hyperlipidemia, unspecified, F07.81 - Postconcussional syndrome, I95.1 - Orthostatic hypotension
--- OUTSIDE RECORDS SUMMARY | 2024-08-28 16:16 | XMS_ITS | Clinical Summary ---
Author Organization [facility] Address [address] [place] [phone] Phone Care Team Providers Care Offset Platemaker Name Role Phone Josy Chapman MD Primary Care Provider [phone] Encounters Date Type Department Care Team Description 07/29/2024 Lab Requisition [facility] [address] [place] [address] James Marie MD Encounter for other general examination 07/27/2024 Lab Requisition [facility] [address] [place] [address] James Marie MD Encounter for other general examination 07/24/2024 Lab Requisition [facility] [address] [place] [address] James Marie MD Encounter for other general examination 07/21/2024 Lab Requisition [facility] [address] [place] [address] James Marie MD Encounter for other general examination from Last 3 Months Surgical History Surgery Date Site/Laterality Comments OTHER SURGICAL HISTORY Right PROCEDURE: HISTORY OTHER; COMMENT: orchiectomy KNEE SURGERY PROCEDURE: HISTORICAL KNEE SURGERY OTHER SURGICAL HISTORY PROCEDURE: UT CABG W/ARTERIAL GRAFT FOUR/>ARTERIAL GRAFTS Medical History Medical History Date Comments Benign colonic polyp 10/26/2017 DX:Benign c olonic polyp CAD (coronary artery disease) 06/09/2017 DX :CAD (coronary artery disease); COMMENT: Old VT; Stent Constipation 08/09/2017 DX:Constipation DDD (degenerative disc disea se), cervical 12/14/2012 DX:DDD (degenerative disc di sease), cervical; COMMENT: C5-7 Depression 10/26/2017 DX:Depression Diverticulosis 10/26/2017 DX:Diverticulosi s History of spinal cord injury 05/12/2009 DX :History of spinal cord injury; COMMENT: L2 fractured vertebrae Hyperlipidemia 10/26/2017 DX:Hyperlipidemi a Hypertension 10/26/2017 DX:Hypertension Moderate asthma without complication 2017 DX:Moderate asthma without complication Proteinuria 11/03/2016 DX:Proteinuria Pulmonary emphysema ([facility] V24, 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 V24, [facility] V28) 10/26/2017 DX:Type 2 diabetes mellitus with renal [...] is included. WBC 8.6 4.8 - 10.8 K/[facility] LAB HEMETOLOGY METHOD 07/29/2024 9:42 AM EDT [facility] ([facility] LAB RBC 3.30(L) 4.50 - 5.50 M/[facility] LAB HEMETOLOGY METHOD 07/29/2024 9:42 AM [facility] LAB Hemoglobin 10.5(L) 13.5 - 17.5 g/dL LAB HEMETOLOGY METHOD 07/29/2024 9:42 AM [facility] LAB Hematocrit 31.4(L) 42.0 - 54.0 % LAB HEMETOLOGY METHOD 07/29/2024 9:42 AM [facility] LAB MCV 94.9 79.0 - 98.0 FL LAB HEMETOLOGY METHOD 07/29/2024 9:42 AM [facility] LAB MCH 31.7 27.0 - 32.0 pcg LAB HEMETOLOGY METHOD 07/29/2024 9:42 AM [facility] LAB MCHC 33.4 32.0 - 37.0 g/dL LAB HEMETOLOGY METHOD 07/29/2024 9:42 AM [facility] LAB RDW 14.0 11.0 - 15.0 % LAB HEMETOLOGY METHOD 07/29/2024 9:42 AM [facility] LAB Platelets 385 130 - 400 K/mcL LAB HEMETOLOGY METHOD 07/29/2024 9:42 AM [facility] LAB MPV 10.7 7.0 - 11.0 FL LAB HEMETOLOGY METHOD 07/29/2024 9:42 AM [facility] LAB NRBC 0.0 <1.0 % LAB HEMETOLOGY METHOD 07/29/2024 9:42 AM [facility] LAB NRBC Absolute 0.00 <0.10 K/mcL LAB HEMETOLOGY METHOD 07/29/2024 9:42 AM [facility] LAB Neutrophils Relative 64.2 % LAB HEMETOLOGY METHOD 07/29/2024 9:42 AM [facility] LAB Lymphocytes Relative 20.2 % LAB HEMETOLOGY METHOD 07/29/2024 9:42 AM [facility] Monocytes Relative 12.2 % LAB HEMETOLOGY METHOD 07/29/2024 9:42 AM EDT [facility] LAB Eosinophils Relative 2.6 % LAB HEMETOLOGY METHOD 07/29/2024 9:42 AM EDT [facility] LAB Basophils Relative 0.1 % LAB HEMETOLOGY METHOD 07/29/2024 9:42 AM EDT [facility] LAB Immature Granulocytes Relative 0.7 % LAB HEMETOLOGY METHOD 07/29/2024 9:42 AM EDT [facility] LAB Neutrophils Absolute 5.49 1.50 - 7.00 K/mcL LAB HEMETOLOGY METHOD 07/29/2024 9:42 AM EDT [facility] Lymphocytes Absolute 1.73 1.00 - 5.00 K/mcL LAB HEMETOLOGY METHOD 07/29/2024 9:42 AM EDT [facility] Monocytes Absolute 1.04(H) 0.20 - 1.00 K/mcL LAB HEMETOLOGY METHOD 07/29/2024 9:42 AM EDT [facility] Eosinophils Absolute 0.22 0.00 - 0.50 K/mcL LAB HEMETOLOGY METHOD 07/29/2024 9:42 AM EDT [facility] Basophils Absolute 0.01 0.00 - 0.20 K/mcL LAB HEMETOLOGY METHOD 07/29/2024 9:42 AM EDT [facility] LAB Immature Granulocytes Absolute 0.06(H) 0.00 - 0.03 K/mcL LAB HEMETOLOGY METHOD 07/29/2024 9:42 AM EDT [facility] Blood Venous blood specimen / Unknown Venipuncture / Unknown 07/29/2024 5:37 AM EDT 07/29/2024 8:42 AM EDT us James Marie MD LAB BLOOD ORDERABLES Final Resu lt [facility] [address] [place] [address], * (ABNORMAL) Basic metabolic panel (07/29/2024 5:37 AM EDT) Only the most recent of2 resultswithin the time period is included. Sodium 138 133 - 145 mmol/L LAB CHEMISTRY METHOD 07/29/2024 9:39 AM [facility] Potassium 4.3 3.5 - 5.5 mmol/L LAB CHEMISTRY METHOD 07/29/2024 9:39 AM [facility] Chloride 107 96 - 110 mmol/L LAB CHEMISTRY METHOD 07/29/2024 9:39 AM [facility] CO2 23 21 - 32 mmol/L LAB CHEMISTRY METHOD 07/29/2024 9:39 AM [facility] Anion Gap 8 3 - 11 LAB CHEMISTRY METHOD 07/29/2024 9:39 AM [facility] Glucose 115(H) 70 - 100 mg/dL LAB CHEMISTRY METHOD 07/29/2024 9:39 AM [facility] BUN 24 5 - 25 mg/dL LAB CHEMISTRY METHOD 07/29/2024 9:39 AM [facility] Creatinine 1.11 0.70 - 1.30 mg/dL LAB CHEMISTRY METHOD 07/29/2024 9:39 AM [facility] LAB eGFR 70 >=60 mL/min/1. 73m2 LAB CHEMISTRY METHOD 07/29/2024 9:39 AM [facility] Comment:Calculation based on the??Chronic Kidney Disease Epidemiology Collaboration (CKD-EPI) equation refit??without adjustment for race. BUN/Creatinine Ratio 21.6 LAB CHEMISTRY METHOD 07/29/2024 9:39 AM [facility] Calcium 9.4 8.5 - 10.5 mg/dL LAB CHEMISTRY METHOD 07/29/2024 9:39 AM [facility] Blood Venous blood specimen / Unknown Venipuncture / Unknown 07/29/2024 5:37 AM EDT 07/29/2024 8:42 AM EDT us James Marie MD LAB BLOOD ORDERABLES Final Resu lt Performing Organization Address [facility]/ZIP Co de Phone Number [facility] [address] [place] [address], [place] [phone] * Magnesium (07/27/2024 6:30 AM EDT) Only the most recent of3 resultswithin the time period is included. Pathologist [facility] Magnesium 2.0 1.9 - 2.6 mg/dL LAB CHEMISTRY METHOD 07/27/2024 10:54 AM EDT [facility] Blood Venous blood specimen / Unknown Venipuncture / Unknown 07/27/2024 6:30 AM EDT 07/27/2024 9:10 AM EDT us James Marie MD LAB BLOOD ORDERABLES Final Resu lt Performing Organization Address [facility] de Phone Number [facility] [address] [place] [address], [place] [phone] * (ABNORMAL) Comprehensive metabolic panel (07/24/2024 2:56 PM EDT) Only the most recent of2 resultswithin the time period is included. Sodium 141 133 - 145 mmol/L LAB CHEMISTRY METHOD 07/24/2024 6:22 PM EDT [facility] Potassium 4.4 3.5 - 5.5 mmol/L LAB CHEMISTRY METHOD 07/24/2024 6:22 PM EDT [facility] Chloride 111(H) 96 - 110 mmol/L LAB CHEMISTRY METHOD 07/24/2024 6:22 PM EDT [facility] CO2 22 21 - 32 mmol/L LAB CHEMISTRY METHOD 07/24/2024 6:22 PM [facility] Anion Gap 8 3 - 11 LAB CHEMISTRY METHOD 07/24/2024 6:22 PM [facility] Glucose 114(H) 70 - 100 mg/dL LAB CHEMISTRY METHOD 07/24/2024 6:22 PM [facility] BUN 21 5 - 25 mg/dL LAB CHEMISTRY METHOD 07/24/2024 6:22 PM [facility] Creatinine 0.98 0.70 - 1.30 mg/dL LAB CHEMISTRY METHOD 07/24/2024 6:22 PM [facility] eGFR 81 >=60 mL/min/1. 73m2 LAB CHEMISTRY METHOD 07/24/2024 6:22 PM [facility] Comment:Calculation based on the??Chronic Kidney Disease Epidemiology Collaboration (CKD-EPI) equation refit??without adjustment for race. BUN/Creatinine Ratio 21.4 LAB CHEMISTRY METHOD 07/24/2024 6:22 PM [facility] Calcium 9.0 8.5 - 10.5 mg/dL LAB CHEMISTRY METHOD 07/24/2024 6:22 PM [facility] AST (SGOT) 31 10 - 42 unit/L LAB CHEMISTRY METHOD 07/24/2024 6:22 PM [facility] ALT (SGPT) 41 10 - 60 unit/L LAB CHEMISTRY METHOD 07/24/2024 6:22 PM [facility] Alkaline Phosphatase 104 42 - 121 unit/L LAB CHEMISTRY METHOD 07/24/2024 6:22 PM [facility] Total Protein 5.9(L) 6.0 - 8.0 g/dL LAB CHEMISTRY METHOD 07/24/2024 6:22 PM [facility] Albumin 2.7(L) 3.2 - 5.0 g/dL LAB CHEMISTRY METHOD 07/24/2024 6:22 PM [facility] Total Bilirubin 1.3 0.0 - 1.4 mg/dL LAB CHEMISTRY METHOD 07/24/2024 6:22 PM EDT [facility] Blood Venous blood specimen / Unknown Venipuncture / Unknown 07/24/2024 2:56 PM EDT 07/24/2024 3:30 PM EDT us James Marie MD LAB BLOOD ORDERABLES Final Resu lt [facility] ([facility]) [facility] [address] [place] [address], [place] [phone] from Last 3 Months Insurance MEDICARE Care Teams Offset Platemaker Relationship Specialty Start Date End Date Josy Chapman MD [address] [place] [phone] PCP - General Internal Medicine 07/21/24
--- OUTSIDE RECORDS SUMMARY | 2024-08-28 16:16 | XMS_ITS | Encounter Summary ---
Author Organization [facility] Address [address] [place] [address] Care Team Providers Care Market Editor Name Role Phone Horacio Griffith MD Primary Care Provider Josy Vazquez MD Primary Care Provider [place] Encounter Details Date Type Department Care Team Description 05/23/2019 Rn Private Duty Report Medical Records [address] [place] [address] [place], [place] Social History Tobacco Use Types Packs/Day Years Used Date Smoking Tobacco: Never Cigarettes Smokeless Tobacco: Never Alcohol Use Standard Drinks/Week Comments No 0 (1 standard drink = 0.6 oz pur e alcohol) Sex Assigned at Date Recorded Not on file documented as of this encounter Plan of Treatment Not on file documented as of this encounter Visit Diagnoses Not on filedocumented in this encounter Care Teams Market Editor Relationship Specialty Start Date End Date Horacio Griffith MD PCP - General Internal Medicine 04/27/17 02/09/20 Josy Chapman MD PCP - General Internal Medicine 02/10/20 documented as of this encounter
--- OUTSIDE RECORDS SUMMARY | 2024-08-28 16:16 | XMS_ITS | Encounter Summary ---
Author Organization [facility] Address [address] [place] [address] Care Team Providers Care Watch And Clock Repairer Name Role Phone Horacio Griffith MD Primary Care Provider Unavaila ble Josy Chapman MD Primary Care Provider Unavaila ble Reason for Visit * Reason Onset Date Comments refill request 10/31/2018 Encounter Details Date Type Department Care Team Description 10/31/2018 Refill Gastroenterology - [place] [address] [place] [phone] Shant Hernandez MD [address] [place] [address] refill request Social History Tobacco Use Types Packs/Day Years Used Date Smoking Tobacco: Never Cigarettes Smokeless Tobacco: Never Alcohol Use Standard Drinks/Week Comments No 0 (1 standard drink = 0.6 oz pur e alcohol) Sex Assigned at Date Recorded Not on file documented as of this encounter Miscellaneous Notes * Telephone Encounter - Mora Sharma - 10/31/2018 12:07 PM EDT RX REFILLS MED NAME: PANTOPRAZOLE ( PROTONIX) DOSAGE: 40MG # OF TABLETS: 90TAB INSTRUCTIONS: TAKE ONE TAB BY MOUTH DAILY PHARMACY NAME AND TEL#: [id number] INDICATE WHETHER IT IS: Call to outside pharmacy IS THE DOCTOR HERE TODAY?: YES CAN THE MESSAGE WAIT UNTIL THE DOCTOR RETURNS?: YES HAS PATIENT BEEN TOLD THAT THE PRESCRIPTION WILL NOT BE COMPLETED UNTIL THE END OF THE DAY? YES [place] / Product Type: MEDICARE [id number] documented in this encounter Plan of Treatment Not on file documented as of this encounter Visit Diagnoses Not on filedocumented in this encounter Care Teams Watch And Clock Repairer Relationship Specialty Start Date End Date Horacio Griffith MD PCP - General Internal Medicine 04/27/17 02/09/20 Josy Chapman MD PCP - General Internal Medicine 02/10/20 documented as of this encounter
--- OUTSIDE RECORDS SUMMARY | 2024-08-28 16:16 | XMS_ITS | Encounter Summary ---
Author Organization [facility] Address [address] [place] [address] Care Team Providers Care Master Control Operator Name Role Phone Horacio Griffith MD Primary Care Provider Unavaila ble Josy Chapman MD Primary Care Provider Unavaila ble Reason for Visit * Reason Comments E-prescribe Rx Request Encounter Details Date Type Department Care Team Description 06/03/2018 Refill Adult Medicine [address] [address] Cj Dumont MD E-prescribe Rx Request Social History Tobacco Use Types Packs/Day Years Used Date Smoking Tobacco: Never Cigarettes Smokeless Tobacco: Never Alcohol Use Standard Drinks/Week Comments No 0 (1 standard drink = 0.6 oz pur e alcohol) Sex Assigned at Date Recorded Not on file documented as of this encounter Miscellaneous Notes * Telephone Encounter - Cassidy Ngo MA. - 06/07/2018 4:43 PM EST Faxed to pharmacy * Telephone Encounter - Cristin Martinez M.A. - 06/04/2018 10:54 AM EST Please send to the [employer] pool * Telephone Encounter - Zoë Jason - 06/04/2018 10:45 AM EST Patient would like script to be: E-PRESCRIBED/FAXED TO PHARMACY WHEN WAS THE PATIENT'S LAST APPOINTMENT IN ADULT MEDICINE? 03-05-18 WHEN WAS THE LAST TIME THE PATIENT SAW THEIR PCP? Same as above Does patient have an upcoming appointment? Yes 07-06-18 (THE MEDICATION REQUESTED IS ON THE MED LIST ABOVE) All of the medications requested were on the CURRENT MEDS list Did you check the Pharmacy information above?: YES Patient wants: 90 -day supply Is this a mail order prescription request ? NO If the refill is from a FAXED refill request what is the RX # listed on the fax? N/A Patients current insurance carrier is: [place] / Plan: [place]-[employer] / Product Type: MEDICARE [id number] documented in this encounter Plan of Treatment Not on file documented as of this encounter Visit Diagnoses Not on filedocumented in this encounter Care Teams Master Control Operator Relationship Specialty Start Date End Date Horacio Griffith MD PCP - General Internal Medicine 04/27/17 02/09/20 Josy Chapman MD PCP - General Internal Medicine 02/10/20 documented as of this encounter
--- OUTSIDE RECORDS SUMMARY | 2024-08-28 16:16 | XMS_ITS | Clinical Summary ---
Author Organization Unknown Care Team Providers Care Gas Brazer Name Role Phone VLAD WEAVER, SHAMIR Unavailable Unavailable SHIRAZ PT, JAQUELINE Unavailable Unavailable EDELMIRA FLUTE TEACHER, KARO Unavailable Unavailable RN, NANETTE Unavailable Unavailable LUIGI PRASADN, MARLENE Unavailable Unavailable SPAFFORD OT, DM Unavailable Unavailable CONDINO ANCELMO/MCMILLAN, CARMEL Unavailable Unav ailable Payers Payer Name Policy Type Policy Number Effective Date Expira tion Date MEDICARE.NGS.PDGM [id number] Problems Condition Name Condition Details Condition Category [...] 08-01 00:00: 00 ATHSCL HEART DISEASE OF [place] CORONARY ARTERY W/O ANG PCTRS Active 08-01 00:00: 00 SUPRAVENTRIC ULAR TACHYCARDIA, UNSPECIFIED Active 08-01 00:00: 00 DEPRESSION, UNSPECIFIED Active 08-01 00:00: 00 HYPERLIPIDEM IA, UNSPECIFIED Active 08-01 00:00: 00 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 08-01 00:00: [...] 0.1 mg tablet 07-29 00:00: 00 Yes [id number] HYPOTENSION 1 tablet DAILY 1 tablet DAILY (route: oral) Med Classific ation: Endocrine mirtazapine 15 mg tablet 07-29 00:00: 00 Yes [id number] DEPRESSION 1 tablet EVERY PM 1 tablet EVERY PM (route: oral) Med Classific ation: Central Nervous System Agents Lantus Solostar U-100 Insulin 100 unit/mL (3 mL) subcutaneou s pen 07-25 00:00: 00 Yes [id number] DIABETES 10 unit DAILY 10 unit DAILY (route: subcutaneo us) Med Classific ation: Endocrine metoprolol succinate ER 25 mg tablet,exte nded release 24 hr 07-25 00:00: 00 Yes [id number] HTN 1 tablet DAILY 1 tablet DAILY (route: oral) Med Classific ation: Cardiovas cular Therapy Agents midodrine 10 mg tablet 07-25 00:00: 00 Yes [id number] HYPOTENSION 1 tablet 3 TIMES DAILY 1 tablet 3 TIMES DAILY (route: oral) Med Classific ation: Cardiovas cular Therapy Agents Aspirin Childrens 81 mg chewable tablet 08-01 00:00: 00 Yes [id number] BLOOD CLOT PREVENTION 1 tablet DAILY 1 tablet DAILY (route: oral) Med Classific ation: Hematolog ical Agents atorvastati n 80 mg tablet 08-01 00:00: 00 Yes [id number] CHOLESTEROL 1 tablet EVERY PM 1 tablet EVERY PM (route: oral) Med Classific ation: Cardiovas cular Therapy Agents Calcium 500 + D 500 mg-10 mcg (400 unit) tablet 08-01 00:00: 00 Yes [id number] SUPPLEMENT 1 tablet DAILY 1 tablet DAILY (route: oral) Med Classific ation: Electroly te Balance-N utritiona l Products folic acid 1 mg tablet 08-01 00:00: 00 Yes [id number] SUPPLEMENT 1 tablet DAILY 1 tablet DAILY (route: oral) Med Classific ation: Electroly te Balance-N utritiona l Products magnesium oxide 400 mg (241.3 mg magnesium) tablet 08-01 00:00: 00 Yes [id number] SUPPLEMENT 1 tablet DAILY 1 tablet DAILY (route: oral) Med Classific ation: Electroly te Balance-N utritiona l Products Miralax 17 gram oral powder packet 08-01 00:00: 00 Yes [id number] CONSTIPATIO N 17 g DAILY 17 g DAILY (route: oral) Med Classific ation: Gastroint estinal Therapy Agents pantoprazol e 40 mg tablet,patt yed release 08-01 00:00: 00 Yes [id number] GERD 1 tablet DAILY 1 tablet DAILY (route: oral) Med Classific ation: Gastroint estinal Therapy Agents paroxetine 20 mg tablet 08-01 00:00: 00 Yes [id number] MOOD 3 tablet DAILY 3 tablet DAILY (route: oral) Med Classific ation: Central Nervous System Agents Tylenol 325 mg tablet 08-01 00:00: 00 Yes [id number] PAIN 2 tablet EVERY 6 HOURS 2 tablet EVERY 6 HOURS (route: oral) Med Classific ation: Analgesic , Anti-infl ammatory or Antipyret ic topiramate 50 mg tablet 410 00:00: 00 Yes [id number] HEADACHES 1 tablet 2 TIMES DAILY 1 tablet 2 TIMES DAILY (route: oral) Med Classific ation: Central Nervous System Agents Vital Signs Vital Name Observation Time Observation Value Commen ts Temperature 2024-08-28 08:31:00.000 96.9 [degF] Temperature 2024-08-21 17:03:00.000 97 [degF] Temperature 2024-08-21 13:39:00.000 97 [degF] Temperature 2024-08-16 10:14:00.000 97.8 [degF] Temperature 2024-08-15 10:00:00.000 96.9 [degF] Temperature 2024-08-08 10:05:00.000 96.9 [degF] Temperature 2024-08-07 10:58:00.000 97.5 [degF] Temperature 2024-08-06 10:55:00.000 97.3 [degF] Temperature 2024-08-01 13:40:00.000 97.7 [degF] BMI (%) 2024-08-01 13:22:34.000 21 kg/m2 Height 2024-08-01 13:22:27.000 73 [in_us] Pulse 2024-08-28 08:31:00.000 72 /min Pulse 2024-08-21 17:03:00.000 64 /min Pulse 2024-08-21 13:39:00.000 71 /min Pulse 2024-08-16 10:14:00.000 78 /min Pulse 2024-08-15 10:00:00.000 66 /min Pulse 2024-08-08 10:05:00.000 60 /min Pulse 2024-08-07 10:58:00.000 76 /min Pulse 2024-08-06 10:55:00.000 63 /min Pulse 2024-08-01 13:40:00.000 75 /min O2 Saturation (%) 2024-08-28 08:31:00.000 97 % O2 Saturation (%) 2024-08-21 17:03:00.000 99 % O2 Saturation (%) 2024-08-21 13:39:00.000 98 % O2 Saturation (%) 2024-08-15 10:00:00.000 99 % O2 Saturation (%) 2024-08-08 10:05:00.000 98 % O2 Saturation (%) 2024-08-07 10:58:00.000 99 % O2 Saturation (%) 2024-08-06 10:55:00.000 97 % O2 Saturation (%) 2024-08-01 13:40:00.000 100 % Respirations 2024-08-28 08:31:00.000 18 /min Respirations 2024-08-21 17:03:00.000 18 /min Respirations 2024-08-21 13:39:00.000 18 /min Respirations 2024-08-16 10:14:00.000 18 /min Respirations 2024-08-15 10:00:00.000 18 /min Respirations 2024-08-08 10:05:00.000 18 /min Respirations 2024-08-07 10:58:00.000 18 /min Respirations 2024-08-06 10:55:00.000 18 /min Respirations 2024-08-01 13:40:00.000 18 /min Weight (lbs) 2024-08-01 13:22:34.000 162 [lb_av] Systolic Blood Pressure 2024-08-28 08:31:00.000 128 mm [Hg] Systolic Blood Pressure 2024-08-21 17:03:00.000 124 mm [Hg] Systolic Blood Pressure 2024-08-21 13:39:00.000 128 mm [Hg] Systolic Blood Pressure 2024-08-16 10:14:00.000 150 mm [Hg] Systolic Blood Pressure 2024-08-15 10:00:00.000 110 mm [Hg] Systolic Blood Pressure 2024-08-08 10:05:00.000 118 mm [Hg] Systolic Blood Pressure 2024-08-07 10:58:00.000 122 mm [Hg] Systolic Blood Pressure 2024-08-06 10:55:00.000 120 mm [Hg] Systolic Blood Pressure 2024-08-01 13:40:00.000 102 mm [Hg] Diastolic Blood Pressure 2024-08-28 08:31:00.000 70 mm [Hg] Diastolic Blood Pressure 2024-08-21 17:03:00.000 84 mm [Hg] Diastolic Blood Pressure 2024-08-21 13:39:00.000 70 mm [Hg] Diastolic Blood Pressure 2024-08-16 10:14:00.000 90 mm [Hg] Diastolic Blood Pressure 2024-08-15 10:00:00.000 64 mm [Hg] Diastolic Blood Pressure 2024-08-08 10:05:00.000 [...] CONSULTING PHYSICIANS. RN TO OBSERVE AND ASSESS, DRY ROOM ATTENDANT/7TH GRADE SOCIAL STUDIES TEACHER TO OBSERVE FOR RISK FOR FALLS AND INSTRUCT IN FALL PREVENTION, HOME SAFETY, MEDICATION MANAGEMENT, INFECTION PREVENTION, AND NUTRITION MANAGEMENT. RN/DRY ROOM ATTENDANT/7TH GRADE SOCIAL STUDIES TEACHER NURSE MAY PERFORM O2 SATURATION LEVEL ON ADMISSION AND PRN FOR RN TO ASSESS/DRY ROOM ATTENDANT TO OBSERVE PATIENT, WITH NOTIFICATION TO THE PHYSICIAN IF SATURATION IS 90% IN THE ABSENCE OF MORE SPECIFIC PARAMETERS FROM THE PHYSICIAN. AGENCY MAY PERFORM A RESUMPTION OF CARE VISIT FOLLOWING ANY HOSPITAL ADMISSION. RN/DRY ROOM ATTENDANT/7TH GRADE SOCIAL STUDIES TEACHER TO MONITOR CO-MORBID CONDITIONS LISTED ON THE PLAN OF CARE AND ANY NEW CONDITIONS THAT PRESENT THEMSELVES DURING THIS EPISODE TO IDENTIFY CHANGES AND INTERVENE TO MINIMIZE COMPLICATIONS. [code = RN TO OBSERVE, ASSESS, EVALUATE, AND DEVELOP AN INDIVIDUALIZED PLAN OF CARE. AGENCY MAY ACCEPT ORDERS FROM CONSULTING PHYSICIANS. RN TO OBSERVE AND ASSESS, DRY ROOM ATTENDANT/7TH GRADE SOCIAL STUDIES TEACHER TO OBSERVE FOR RISK FOR FALLS AND INSTRUCT IN FALL PREVENTION, HOME SAFETY, MEDICATION MANAGEMENT, INFECTION PREVENTION, AND NUTRITION MANAGEMENT. RN/DRY ROOM ATTENDANT/7TH GRADE SOCIAL STUDIES TEACHER NURSE MAY PERFORM O2 SATURATION LEVEL ON ADMISSION AND PRN FOR RN TO ASSESS/DRY ROOM ATTENDANT TO OBSERVE PATIENT, WITH NOTIFICATION TO THE PHYSICIAN IF SATURATION IS 90% IN THE ABSENCE OF MORE SPECIFIC PARAMETERS FROM THE PHYSICIAN. AGENCY MAY PERFORM A RESUMPTION OF CARE VISIT FOLLOWING ANY HOSPITAL ADMISSION. RN/DRY ROOM ATTENDANT/7TH GRADE SOCIAL STUDIES TEACHER TO MONITOR CO-MORBID CONDITIONS LISTED ON THE PLAN OF CARE AND ANY NEW CONDITIONS THAT PRESENT THEMSELVES DURING THIS EPISODE TO IDENTIFY CHANGES AND INTERVENE TO MINIMIZE COMPLICATIONS.] Future Scheduled Test RISK FOR H OSPITALIZATION; RN TO ASSESS/TEACH, 7TH GRADE SOCIAL STUDIES TEACHER/DRY ROOM ATTENDANT TO OBSERVE/TEACH PATIENT/CAREGIVER ON RISK FOR HOSPITALIZATION/EMERGENCY ROOM VISITS, TEACH SIGNS AND SYMPTOMS THAT PUT PATIENT AT RISK, WHEN TO NOTIFY NURSE/PHYSICIAN OF COMPLICATIONS/DECLINE, AND WHEN TO CALL 911. [code = RISK FOR HOSPITALIZATION; RN TO ASSESS/TEACH, 7TH GRADE SOCIAL STUDIES TEACHER/DRY ROOM ATTENDANT TO OBSERVE/TEACH PATIENT/CAREGIVER ON RISK FOR HOSPITALIZATION/EMERGENCY ROOM VISITS, TEACH SIGNS AND SYMPTOMS THAT PUT PATIENT AT RISK, WHEN TO NOTIFY NURSE/PHYSICIAN OF COMPLICATIONS/DECLINE, AND WHEN TO CALL 911.] Future Scheduled Test MEDICATION MANAGEMENT; RN/DRY ROOM ATTENDANT/7TH GRADE SOCIAL STUDIES TEACHER TO REVIEW MEDICATIONS FOR INTERACTIONS, EFFECTIVENESS OF DRUG THERAPY, AND SIGNS/SYMPTOMS OF ADVERSE REACTIONS. MAY INSTRUCT AND REINFORCE MEDICATION TEACHING RELATED TO THE USE OF MEDICATIONS, DOSAGE, FREQUENCY, PURPOSE, SIDE EFFECTS, AND TO REPORT COMPLICATIONS. [code = MEDICATION MANAGEMENT; RN/DRY ROOM ATTENDANT/7TH GRADE SOCIAL STUDIES TEACHER TO REVIEW MEDICATIONS FOR INTERACTIONS, EFFECTIVENESS OF DRUG THERAPY, AND SIGNS/SYMPTOMS OF ADVERSE REACTIONS. MAY INSTRUCT AND REINFORCE MEDICATION TEACHING RELATED TO THE USE OF MEDICATIONS, DOSAGE, FREQUENCY, PURPOSE, SIDE EFFECTS, AND TO REPORT COMPLICATIONS.] Future Scheduled Test CARDIOVASC ULAR SYSTEM; RN TO ASSESS/TEACH, DRY ROOM ATTENDANT/7TH GRADE SOCIAL STUDIES TEACHER TO OBSERVE/TEACH RELATED TO ALTERED CARDIOVASCULAR STATUS TO MINIMIZE COMPLICATIONS AND REDUCE HOSPITALIZATION. [code = CARDIOVASCULAR SYSTEM; RN TO ASSESS/TEACH, DRY ROOM ATTENDANT/7TH GRADE SOCIAL STUDIES TEACHER TO OBSERVE/TEACH RELATED TO ALTERED CARDIOVASCULAR STATUS TO MINIMIZE COMPLICATIONS AND REDUCE HOSPITALIZATION.] Future Scheduled Test HYPERTENSI ON MANAGEMENT; RN TO ASSESS AND TEACH, DRY ROOM ATTENDANT/7TH GRADE SOCIAL STUDIES TEACHER TO OBSERVE AND TEACH WARNING SIGNS AND SYMPTOMS TO AVOID HOSPITALIZATION. [code = HYPERTENSION MANAGEMENT; RN TO ASSESS AND TEACH, DRY ROOM ATTENDANT/7TH GRADE SOCIAL STUDIES TEACHER TO OBSERVE AND TEACH WARNING SIGNS AND SYMPTOMS TO AVOID HOSPITALIZATION.] Future Scheduled Test HYPOTENSIO N MANAGEMENT; RN TO ASSESS AND TEACH/ DRY ROOM ATTENDANT /7TH GRADE SOCIAL STUDIES TEACHER TO OBSERVE AND TEACH WARNING SIGNS AND SYMPTOMS TO AVOID HOSPITALIZATION. [code = HYPOTENSION MANAGEMENT; RN TO ASSESS AND TEACH/ DRY ROOM ATTENDANT /7TH GRADE SOCIAL STUDIES TEACHER TO OBSERVE AND TEACH WARNING SIGNS AND SYMPTOMS TO AVOID HOSPITALIZATION.] Future Scheduled Test COVID-19 P OSITIVE/SYMPTOMATIC MANAGEMENT; RN TO ASSESS AND TEACH, DRY ROOM ATTENDANT/7TH GRADE SOCIAL STUDIES TEACHER TO OBSERVE AND TEACH SIGNS OF COVID-19 AND PROVIDE EARLY INTERVENTIONS TO MINIMIZE RISK OF HOSPITALIZATION. [code = COVID-19 POSITIVE/SYMPTOMATIC MANAGEMENT; RN TO ASSESS AND TEACH, DRY ROOM ATTENDANT/7TH GRADE SOCIAL STUDIES TEACHER TO OBSERVE AND TEACH SIGNS OF COVID-19 AND PROVIDE EARLY INTERVENTIONS TO MINIMIZE RISK OF HOSPITALIZATION.] Future Scheduled Test SKIN INTEG RITY RN TO ASSESS AND TEACH, DRY ROOM ATTENDANT/7TH GRADE SOCIAL STUDIES TEACHER TO OBSERVE AND TEACH INTEGUMENTARY STATUS TO IDENTIFY CHANGES AND INTERVENE TO MINIMIZE COMPLICATIONS. PROVIDE SKILLED TEACHING OF GENERAL WOUND AND SKIN CARE AND PREVENTION RELATED TO POTENTIAL FOR OR ACTUAL ALTERED SKIN INTEGRITY. [code = SKIN INTEGRITY RN TO ASSESS AND TEACH, DRY ROOM ATTENDANT/7TH GRADE SOCIAL STUDIES TEACHER TO OBSERVE AND TEACH INTEGUMENTARY STATUS TO IDENTIFY CHANGES AND INTERVENE TO MINIMIZE COMPLICATIONS. PROVIDE SKILLED TEACHING OF GENERAL WOUND AND SKIN CARE AND PREVENTION RELATED TO POTENTIAL FOR OR ACTUAL ALTERED SKIN INTEGRITY.] Future Scheduled Test PAIN MANAG EMENT; RN TO ASSESS AND TEACH, 7TH GRADE SOCIAL STUDIES TEACHER/DRY ROOM ATTENDANT TO OBSERVE AND TEACH AND PROVIDE EDUCATION ON PAIN MANAGEMENT TECHNIQUES. [code = PAIN MANAGEMENT; RN TO ASSESS AND TEACH, 7TH GRADE SOCIAL STUDIES TEACHER/DRY ROOM ATTENDANT TO OBSERVE AND TEACH AND PROVIDE EDUCATION ON PAIN MANAGEMENT TECHNIQUES.] Future Scheduled Test DIABETES M ANAGEMENT; RN TO ASSESS AND TEACH, 7TH GRADE SOCIAL STUDIES TEACHER/DRY ROOM ATTENDANT TO OBSERVE AND TEACH INSTRUCTIONS OF DIABETIC CARE TO INCLUDE: DIABETIC DIET, SKIN CARE, SIGNS AND SYMPTOMS OF HYPO/HYPERGLYCEMIA, PROPER ADMINISTRATION OF DIABETIC MEDICATION. RN/7TH GRADE SOCIAL STUDIES TEACHER/DRY ROOM ATTENDANT TO INSTRUCT ON DIABETIC FOOT CARE AND MONITOR FOR SKIN LESIONS ON LOWER EXTREMITIES. BLOOD GLUCOSE TESTING 1 TIME DAILY. RN TO ASSESS AND TEACH, 7TH GRADE SOCIAL STUDIES TEACHER/DRY ROOM ATTENDANT TO OBSERVE AND TEACH PATIENT/CAREGIVER ABILITY TO PERFORM AND RECORD BLOOD GLUCOSE TESTING ORDERED AND TO REPORT ABNORMAL FINDINGS TO PHYSICIAN. RN/7TH GRADE SOCIAL STUDIES TEACHER/DRY ROOM ATTENDANT MAY PERFORM BLOOD GLUCOSE TEST NEEDED. RN/7TH GRADE SOCIAL STUDIES TEACHER/DRY ROOM ATTENDANT TO REPORT TO PHYSICIAN BLOOD GLUCOSE READINGS GREATER THAN 300 OR LESS THAN 70. RN/7TH GRADE SOCIAL STUDIES TEACHER/DRY ROOM ATTENDANT TO INSTRUCT PATIENT ON IMPORTANCE OF HGBA1C MONITORING, KIDNEY FUNCTION TEST, EYE AND FOOT EXAMS. [code = DIABETES MANAGEMENT; RN TO ASSESS AND TEACH, 7TH GRADE SOCIAL STUDIES TEACHER/DRY ROOM ATTENDANT TO OBSERVE AND TEACH INSTRUCTIONS OF DIABETIC CARE TO INCLUDE: DIABETIC DIET, SKIN CARE, SIGNS AND SYMPTOMS OF HYPO/HYPERGLYCEMIA, PROPER ADMINISTRATION OF DIABETIC MEDICATION. RN/7TH GRADE SOCIAL STUDIES TEACHER/DRY ROOM ATTENDANT TO INSTRUCT ON DIABETIC FOOT CARE AND MONITOR FOR SKIN LESIONS ON LOWER EXTREMITIES. BLOOD GLUCOSE TESTING 1 TIME DAILY. RN TO ASSESS AND TEACH, 7TH GRADE SOCIAL STUDIES TEACHER/DRY ROOM ATTENDANT TO OBSERVE AND TEACH PATIENT/CAREGIVER ABILITY TO PERFORM AND RECORD BLOOD GLUCOSE TESTING ORDERED AND TO REPORT ABNORMAL FINDINGS TO PHYSICIAN. RN/7TH GRADE SOCIAL STUDIES TEACHER/DRY ROOM ATTENDANT MAY PERFORM BLOOD GLUCOSE TEST NEEDED. RN/7TH GRADE SOCIAL STUDIES TEACHER/DRY ROOM ATTENDANT TO REPORT TO PHYSICIAN BLOOD GLUCOSE READINGS GREATER THAN 300 OR LESS THAN 70. RN/7TH GRADE SOCIAL STUDIES TEACHER/DRY ROOM ATTENDANT TO INSTRUCT PATIENT ON IMPORTANCE OF HGBA1C MONITORING, KIDNEY FUNCTION TEST, EYE AND FOOT EXAMS.] Future Scheduled Test ANEMIA MAN AGEMENT; RN TO ASSESS AND TEACH, 7TH GRADE SOCIAL STUDIES TEACHER/DRY ROOM ATTENDANT TO OBSERVE AND TEACH AND PROVIDE EDUCATION ON ANEMIA. [code = ANEMIA MANAGEMENT; RN TO ASSESS AND TEACH, 7TH GRADE SOCIAL STUDIES TEACHER/DRY ROOM ATTENDANT TO OBSERVE AND TEACH AND PROVIDE EDUCATION ON ANEMIA.] Future Scheduled Test FALL REDUC TION MANAGEMENT; RN TO ASSESS AND OBSERVE, DRY ROOM ATTENDANT/7TH GRADE SOCIAL STUDIES TEACHER TO OBSERVE FALL RISK FACTORS AND EDUCATE PATIENT/CAREGIVER ON STRATEGIES TO MINIMIZE THE RISK OF FALLING. [code = FALL REDUCTION MANAGEMENT; RN TO ASSESS AND OBSERVE, DRY ROOM ATTENDANT/7TH GRADE SOCIAL STUDIES TEACHER TO OBSERVE FALL RISK FACTORS AND EDUCATE [...] TO EVALUATE, OBSERVE / ASSESS, AND MONITOR, FLUTE TEACHER TO OBSERVE AND MONITOR, PROVIDE SKILLED THERAPEUTIC INTERVENTION, ACTIVITY, EDUCATION, AND TRAINING TO ADDRESS; PT/FLUTE TEACHER TO PROVIDE GAIT TRAINING FOR IMPROVED MOBILITY AND /OR TO NORMALIZE GAIT PATTERN NEUROMUSCULAR RE-EDUCATION / BALANCE / POSTURAL CONTROL (PT) THERAPEUTIC EXERCISES AND ESTABLISHING A HOME EXERCISE PROGRAM (PT/FLUTE TEACHER) PT/FLUTE TEACHER TO PROVIDE STAIR TRAINING SIT TO/FROM STAND TRANSFERS (PT/FLUTE TEACHER) PT TO ASSESS / FLUTE TEACHER TO MONITOR FOR AND REPORT EARLY SIGNS OF ANTICOAGULANT TOXICITY TO THE PHYSICIAN AND/OR THE RN CLINICAL RETURNED GOODS SORTER FOR PHYSICIAN NOTIFICATION AND TO PROVIDE PATIENT/CAREGIVER EDUCATION ON ANTICOAGULANT THERAPY PT / FLUTE TEACHER TO MONITOR AND EDUCATE ON OXYGEN SATURATION DURING ADLS/IADLS, NOTIFY PHYSICIAN AND/OR THE RN CLINICAL RETURNED GOODS SORTER FOR PHYSICIAN NOTIFICATION AND IF O2 SATS BELOW PHYSICIAN ORDERED PARAMETERS AFTER 10 MIN OF REST PT / FLUTE TEACHER TO MONITOR FOR HYPO/HYPERGLYCEMIA AND CONDUCT ROUTINE FOOT INSPECTIONS. RECORD PATIENT REPORTED BLOOD SUGAR LEVELS AND NOTIFY PHYSICIAN AND/OR THE RN CLINICAL RETURNED GOODS SORTER FOR PHYSICIAN NOTIFICATION IF BLOOD SUGAR LEVELS ARE OUTSIDE ORDERED PARAMETERS. TEACH PATIENT/CAREGIVER ON DAILY FOOT INSPECTIONS PT TO ASSESS / FLUTE TEACHER TO MONITOR CARDIO/RESPIRATORY SYSTEM; AND NOTIFY THE PHYSICIAN AND/OR THE RN CLINICAL RETURNED GOODS SORTER FOR PHYSICIAN NOTIFICATION FOR EARLY SIGNS AND SYMPTOMS OF EXACERBATION OR DETERIORATION. PT/FLUTE TEACHER TO IDENTIFY FALL RISK FACTORS; EDUCATE THE PATIENT/CAREGIVER ON WAYS TO REDUCE FALL RISK FACTORS AND ESTABLISH HOME EXERCISE PROGRAM TO MINIMIZE FALL RISK. MAY TEACH THE PATIENT FLOOR RECOVERY WHEN CLINICALLY APPROPRIATE PT / FLUTE TEACHER MAY EDUCATE ON PAIN MANAGEMENT CLINICALLY INDICATED, INCLUDING NON-PHARMACOLOGICAL PAIN REDUCTION TECHNIQUES. [code = AGENCY MAY PERFORM A RESUMPTION OF CARE VISIT FOLLOWING ANY HOSPITAL ADMISSION. PT TO EVALUATE, OBSERVE / ASSESS, AND MONITOR, FLUTE TEACHER TO OBSERVE AND MONITOR, PROVIDE SKILLED THERAPEUTIC INTERVENTION, ACTIVITY, EDUCATION, AND TRAINING TO ADDRESS; PT/FLUTE TEACHER TO PROVIDE GAIT TRAINING FOR IMPROVED MOBILITY AND /OR TO NORMALIZE GAIT PATTERN NEUROMUSCULAR RE-EDUCATION / BALANCE / POSTURAL CONTROL (PT) THERAPEUTIC EXERCISES AND ESTABLISHING A HOME EXERCISE PROGRAM (PT/FLUTE TEACHER) PT/FLUTE TEACHER TO PROVIDE STAIR TRAINING SIT TO/FROM STAND TRANSFERS (PT/FLUTE TEACHER) PT TO ASSESS / FLUTE TEACHER TO MONITOR FOR AND REPORT EARLY SIGNS OF ANTICOAGULANT TOXICITY TO THE PHYSICIAN AND/OR THE RN CLINICAL RETURNED GOODS SORTER FOR PHYSICIAN NOTIFICATION AND TO PROVIDE PATIENT/CAREGIVER EDUCATION ON ANTICOAGULANT THERAPY PT / FLUTE TEACHER TO MONITOR AND EDUCATE ON OXYGEN SATURATION DURING ADLS/IADLS, NOTIFY PHYSICIAN AND/OR THE RN CLINICAL RETURNED GOODS SORTER FOR PHYSICIAN NOTIFICATION AND IF O2 SATS BELOW PHYSICIAN ORDERED PARAMETERS AFTER 10 MIN OF REST PT / FLUTE TEACHER TO MONITOR FOR HYPO/HYPERGLYCEMIA AND CONDUCT ROUTINE FOOT INSPECTIONS. RECORD PATIENT REPORTED BLOOD SUGAR LEVELS AND NOTIFY PHYSICIAN AND/OR THE RN CLINICAL RETURNED GOODS SORTER FOR PHYSICIAN NOTIFICATION IF BLOOD SUGAR LEVELS ARE OUTSIDE ORDERED PARAMETERS. TEACH PATIENT/CAREGIVER ON DAILY FOOT INSPECTIONS PT TO ASSESS / FLUTE TEACHER TO MONITOR CARDIO/RESPIRATORY SYSTEM; AND NOTIFY THE PHYSICIAN AND/OR THE RN CLINICAL RETURNED GOODS SORTER FOR PHYSICIAN NOTIFICATION FOR EARLY SIGNS AND SYMPTOMS OF EXACERBATION OR DETERIORATION. PT/FLUTE TEACHER TO IDENTIFY FALL RISK FACTORS; EDUCATE THE PATIENT/CAREGIVER ON WAYS TO REDUCE FALL RISK FACTORS AND ESTABLISH HOME EXERCISE PROGRAM TO MINIMIZE FALL RISK. MAY TEACH THE PATIENT FLOOR RECOVERY WHEN CLINICALLY APPROPRIATE PT / FLUTE TEACHER MAY EDUCATE ON PAIN MANAGEMENT CLINICALLY INDICATED, [...] End Date/Time Encounter Type Admission Type Attending [facility] Care Department Encounter ID Discharge Date Discharge Status Discharge Condition Discharge Reason Percent Goals Met 2024-08-01 00:00:00 2024-09-29 00:00:00 Outpatient NEW ADMISSION JAQUELINE WELDON [facility] [id number] 12.50
--- OUTSIDE RECORDS SUMMARY | 2024-08-28 16:16 | XMS_ITS | Encounter Summary ---
Author Organization [facility] Address [address] [place] [address] Care Team Providers Care Census Clerk Name Role Phone Josy Chapman MD Primary Care Provider Spencera ble Encounter Details Date Type Department Care Team Description 04/05/2022 Trombone Slide Assembler Report Medical Records [address] [place] [id number] Timbo Chavez MD Social History Tobacco Use Types Packs/Day Years [...] on filedocumented in this encounter Care Teams Census Clerk Relationship Specialty Start Date End Date Josy Chapman MD PCP - General Internal Medicine 02/10/20 documented as of this encounter
--- OUTSIDE RECORDS SUMMARY | 2024-08-28 16:16 | XMS_ITS | Encounter Summary ---
Author Organization [facility] Address [address] [place] [address] Care Team Providers Care Armature Winder Helper Repair Name Role Phone Horacio Griffith MD Primary Care Provider Unavaila ble Josy Chapman MD Primary Care Provider Unavaila ble Reason for Visit * Reason Comments E-prescribe Rx Request Encounter Details Date Type Department Care Team Description 02/07/2020 Refill Adult Medicine B - [address] [address] Cj Dumont MD E-prescribe Rx Request Social History Tobacco Use Types Packs/Day Years Used Date Smoking Tobacco: Never Cigarettes Smokeless Tobacco: Never Alcohol Use Standard Drinks/Week Comments No 0 (1 standard drink = 0.6 oz pur e alcohol) Sex Assigned at Date Recorded Not on file documented as of this encounter Miscellaneous Notes * Telephone Encounter - Cj Dumont MD - 02/21/2020 7:54 PM EDT This was sent several days ago * Telephone Encounter - Lynda Quevedo M.A. - 02/10/2020 10:20 AM EDT Date of last office visit was 08/20/19. Pended appt for 02/21/20 Lab Results Component Value Date HGBA1C 7.8 06/13/2019 MALBUR 5.1 06/14/2019 MALBCR < 5.0 06/14/2019 CHOL 133 06/13/2019 LDL 54 06/13/2019 HDL 29 06/13/2019 TRIG 251 06/13/2019 GLU 199 06/13/2019 CREAT 1.24 06/13/2019 * Telephone Encounter - Adrienne Granados - 02/10/2020 10:07 AM EDT I called patient at [phone] and per patient his PCP is now Dr. Josy Chapman. Updated PCP. * Telephone Encounter - Gillian Astudillo M.A. - 02/07/2020 1:56 PM EDT PLEASE UPDATE PCP, THEN ROUTE BACK * Telephone Encounter - Cosme Traylor - 02/07/2020 10:26 AM EDT Patient would like script to be: E-PRESCRIBED/FAXED TO PHARMACY WHEN WAS THE PATIENT'S LAST APPOINTMENT IN ADULT MEDICINE? 05/20/19 WHEN WAS THE LAST TIME THE PATIENT SAW THEIR PCP? Same as above Does patient have an upcoming appointment? Yes 02/21/20 (THE MEDICATION REQUESTED IS ON THE MED LIST ABOVE) All of the medications requested were on the CURRENT MEDS list Did you check the Pharmacy information above?: YES Patient wants: 30 -day supply Is this a mail order prescription request ? NO If the refill is from a FAXED refill request what is the RX # listed on the fax? N/A Patients current insurance carrier is: [place] / [place] / Product Type: MEDICARE [id number] documented in this encounter Plan of Treatment Not on file documented as of this encounter Visit Diagnoses Not on filedocumented in this encounter Care Teams Armature Winder Helper Repair Relationship Specialty Start Date End Date Horacio Griffith MD PCP - General Internal Medicine 04/27/17 02/09/20 Josy Chapman MD PCP - General Internal Medicine 02/10/20 documented as of this encounter
--- OUTSIDE RECORDS SUMMARY | 2024-08-28 16:16 | XMS_ITS | Clinical Summary ---
Author Organization Unknown Care Team Providers Care Airplane Designer Name Role Phone VLAD WEAVER, SHAMIR Unavailable Unavailable SHIRAZ PT, JAQUELINE Unavailable Unavailable EDELMIRA MACHINED PARTS QUALITY INSPECTOR, KARO Unavailable Unavailable RN, NANETTE Unavailable Unavailable LUIGI PRASADN, MARLENE Unavailable Unavailable SPAFFORD OT, DM Unavailable Unavailable CONDINO ANCELMO/MCMILLAN, CARMEL Unavailable Unav ailable Payers Payer Name Policy Type Policy Number Effective Date Expira tion Date MEDICARE.NGS.PDGM [id number] Problems Condition Name Condition Details Condition Category [...] 08-01 00:00: 00 ATHSCL HEART DISEASE OF [place] CORONARY ARTERY W/O ANG PCTRS Active 08-01 00:00: 00 SUPRAVENTRIC ULAR TACHYCARDIA, UNSPECIFIED Active 08-01 00:00: 00 DEPRESSION, UNSPECIFIED Active 08-01 00:00: 00 HYPERLIPIDEM IA, UNSPECIFIED Active 08-01 00:00: 00 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 Active 08-01 00:00: [...] 0.1 mg tablet 07-29 00:00: 00 Yes [id number] HYPOTENSION 1 tablet DAILY 1 tablet DAILY (route: oral) Med Classific ation: Endocrine mirtazapine 15 mg tablet 07-29 00:00: 00 Yes [id number] DEPRESSION 1 tablet EVERY PM 1 tablet EVERY PM (route: oral) Med Classific ation: Central Nervous System Agents Lantus Solostar U-100 Insulin 100 unit/mL (3 mL) subcutaneou s pen 07-25 00:00: 00 Yes [id number] DIABETES 10 unit DAILY 10 unit DAILY (route: subcutaneo us) Med Classific ation: Endocrine metoprolol succinate ER 25 mg tablet,exte nded release 24 hr 07-25 00:00: 00 Yes [id number] HTN 1 tablet DAILY 1 tablet DAILY (route: oral) Med Classific ation: Cardiovas cular Therapy Agents midodrine 10 mg tablet 07-25 00:00: 00 Yes [id number] HYPOTENSION 1 tablet 3 TIMES DAILY 1 tablet 3 TIMES DAILY (route: oral) Med Classific ation: Cardiovas cular Therapy Agents Aspirin Childrens 81 mg chewable tablet 08-01 00:00: 00 Yes [id number] BLOOD CLOT PREVENTION 1 tablet DAILY 1 tablet DAILY (route: oral) Med Classific ation: Hematolog ical Agents atorvastati n 80 mg tablet 08-01 00:00: 00 Yes [id number] CHOLESTEROL 1 tablet EVERY PM 1 tablet EVERY PM (route: oral) Med Classific ation: Cardiovas cular Therapy Agents Calcium 500 + D 500 mg-10 mcg (400 unit) tablet 08-01 00:00: 00 Yes [id number] SUPPLEMENT 1 tablet DAILY 1 tablet DAILY (route: oral) Med Classific ation: Electroly te Balance-N utritiona l Products folic acid 1 mg tablet 08-01 00:00: 00 Yes [id number] SUPPLEMENT 1 tablet DAILY 1 tablet DAILY (route: oral) Med Classific ation: Electroly te Balance-N utritiona l Products magnesium oxide 400 mg (241.3 mg magnesium) tablet 08-01 00:00: 00 Yes [id number] SUPPLEMENT 1 tablet DAILY 1 tablet DAILY (route: oral) Med Classific ation: Electroly te Balance-N utritiona l Products Miralax 17 gram oral powder packet 08-01 00:00: 00 Yes [id number] CONSTIPATIO N 17 g DAILY 17 g DAILY (route: oral) Med Classific ation: Gastroint estinal Therapy Agents pantoprazol e 40 mg tablet,patt yed release 08-01 00:00: 00 Yes [id number] GERD 1 tablet DAILY 1 tablet DAILY (route: oral) Med Classific ation: Gastroint estinal Therapy Agents paroxetine 20 mg tablet 08-01 00:00: 00 Yes [id number] MOOD 3 tablet DAILY 3 tablet DAILY (route: oral) Med Classific ation: Central Nervous System Agents Tylenol 325 mg tablet 08-01 00:00: 00 Yes [id number] PAIN 2 tablet EVERY 6 HOURS 2 tablet EVERY 6 HOURS (route: oral) Med Classific ation: Analgesic , Anti-infl ammatory or Antipyret ic topiramate 50 mg tablet 410 00:00: 00 Yes [id number] HEADACHES 1 tablet 2 TIMES DAILY 1 [...] CONSULTING PHYSICIANS. RN TO OBSERVE AND ASSESS, CLINICAL TRIAL DATA MANAGER/BORING MILL OPERATOR FOR METAL TO OBSERVE FOR RISK FOR FALLS AND INSTRUCT IN FALL PREVENTION, HOME SAFETY, MEDICATION MANAGEMENT, INFECTION PREVENTION, AND NUTRITION MANAGEMENT. RN/CLINICAL TRIAL DATA MANAGER/BORING MILL OPERATOR FOR METAL NURSE MAY PERFORM O2 SATURATION LEVEL ON ADMISSION AND PRN FOR RN TO ASSESS/CLINICAL TRIAL DATA MANAGER TO OBSERVE PATIENT, WITH NOTIFICATION TO THE PHYSICIAN IF SATURATION IS 90% IN THE ABSENCE OF MORE SPECIFIC PARAMETERS FROM THE PHYSICIAN. AGENCY MAY PERFORM A RESUMPTION OF CARE VISIT FOLLOWING ANY HOSPITAL ADMISSION. RN/CLINICAL TRIAL DATA MANAGER/BORING MILL OPERATOR FOR METAL TO MONITOR CO-MORBID CONDITIONS LISTED ON THE PLAN OF CARE AND ANY NEW CONDITIONS THAT PRESENT THEMSELVES DURING THIS EPISODE TO IDENTIFY CHANGES AND INTERVENE TO MINIMIZE COMPLICATIONS. [code = RN TO OBSERVE, ASSESS, EVALUATE, AND DEVELOP AN INDIVIDUALIZED PLAN OF CARE. AGENCY MAY ACCEPT ORDERS FROM CONSULTING PHYSICIANS. RN TO OBSERVE AND ASSESS, CLINICAL TRIAL DATA MANAGER/BORING MILL OPERATOR FOR METAL TO OBSERVE FOR RISK FOR FALLS AND INSTRUCT IN FALL PREVENTION, HOME SAFETY, MEDICATION MANAGEMENT, INFECTION PREVENTION, AND NUTRITION MANAGEMENT. RN/CLINICAL TRIAL DATA MANAGER/BORING MILL OPERATOR FOR METAL NURSE MAY PERFORM O2 SATURATION LEVEL ON ADMISSION AND PRN FOR RN TO ASSESS/CLINICAL TRIAL DATA MANAGER TO OBSERVE PATIENT, WITH NOTIFICATION TO THE PHYSICIAN IF SATURATION IS 90% IN THE ABSENCE OF MORE SPECIFIC PARAMETERS FROM THE PHYSICIAN. AGENCY MAY PERFORM A RESUMPTION OF CARE VISIT FOLLOWING ANY HOSPITAL ADMISSION. RN/CLINICAL TRIAL DATA MANAGER/BORING MILL OPERATOR FOR METAL TO MONITOR CO-MORBID CONDITIONS LISTED ON THE PLAN OF CARE AND ANY NEW CONDITIONS THAT PRESENT THEMSELVES DURING THIS EPISODE TO IDENTIFY CHANGES AND INTERVENE TO MINIMIZE COMPLICATIONS.] Future Scheduled Test RISK FOR H OSPITALIZATION; RN TO ASSESS/TEACH, BORING MILL OPERATOR FOR METAL/CLINICAL TRIAL DATA MANAGER TO OBSERVE/TEACH PATIENT/CAREGIVER ON RISK FOR HOSPITALIZATION/EMERGENCY ROOM VISITS, TEACH SIGNS AND SYMPTOMS THAT PUT PATIENT AT RISK, WHEN TO NOTIFY NURSE/PHYSICIAN OF COMPLICATIONS/DECLINE, AND WHEN TO CALL 911. [code = RISK FOR HOSPITALIZATION; RN TO ASSESS/TEACH, BORING MILL OPERATOR FOR METAL/CLINICAL TRIAL DATA MANAGER TO OBSERVE/TEACH PATIENT/CAREGIVER ON RISK FOR HOSPITALIZATION/EMERGENCY ROOM VISITS, TEACH SIGNS AND SYMPTOMS THAT PUT PATIENT AT RISK, WHEN TO NOTIFY NURSE/PHYSICIAN OF COMPLICATIONS/DECLINE, AND WHEN TO CALL 911.] Future Scheduled Test MEDICATION MANAGEMENT; RN/CLINICAL TRIAL DATA MANAGER/BORING MILL OPERATOR FOR METAL TO REVIEW MEDICATIONS FOR INTERACTIONS, EFFECTIVENESS OF DRUG THERAPY, AND SIGNS/SYMPTOMS OF ADVERSE REACTIONS. MAY INSTRUCT AND REINFORCE MEDICATION TEACHING RELATED TO THE USE OF MEDICATIONS, DOSAGE, FREQUENCY, PURPOSE, SIDE EFFECTS, AND TO REPORT COMPLICATIONS. [code = MEDICATION MANAGEMENT; RN/CLINICAL TRIAL DATA MANAGER/BORING MILL OPERATOR FOR METAL TO REVIEW MEDICATIONS FOR INTERACTIONS, EFFECTIVENESS OF DRUG THERAPY, AND SIGNS/SYMPTOMS OF ADVERSE REACTIONS. MAY INSTRUCT AND REINFORCE MEDICATION TEACHING RELATED TO THE USE OF MEDICATIONS, DOSAGE, FREQUENCY, PURPOSE, SIDE EFFECTS, AND TO REPORT COMPLICATIONS.] Future Scheduled Test CARDIOVASC ULAR SYSTEM; RN TO ASSESS/TEACH, CLINICAL TRIAL DATA MANAGER/BORING MILL OPERATOR FOR METAL TO OBSERVE/TEACH RELATED TO ALTERED CARDIOVASCULAR STATUS TO MINIMIZE COMPLICATIONS AND REDUCE HOSPITALIZATION. [code = CARDIOVASCULAR SYSTEM; RN TO ASSESS/TEACH, CLINICAL TRIAL DATA MANAGER/BORING MILL OPERATOR FOR METAL TO OBSERVE/TEACH RELATED TO ALTERED CARDIOVASCULAR STATUS TO MINIMIZE COMPLICATIONS AND REDUCE HOSPITALIZATION.] Future Scheduled Test HYPERTENSI ON MANAGEMENT; RN TO ASSESS AND TEACH, CLINICAL TRIAL DATA MANAGER/BORING MILL OPERATOR FOR METAL TO OBSERVE AND TEACH WARNING SIGNS AND SYMPTOMS TO AVOID HOSPITALIZATION. [code = HYPERTENSION MANAGEMENT; RN TO ASSESS AND TEACH, CLINICAL TRIAL DATA MANAGER/BORING MILL OPERATOR FOR METAL TO OBSERVE AND TEACH WARNING SIGNS AND SYMPTOMS TO AVOID HOSPITALIZATION.] Future Scheduled Test HYPOTENSIO N MANAGEMENT; RN TO ASSESS AND TEACH/ CLINICAL TRIAL DATA MANAGER /BORING MILL OPERATOR FOR METAL TO OBSERVE AND TEACH WARNING SIGNS AND SYMPTOMS TO AVOID HOSPITALIZATION. [code = HYPOTENSION MANAGEMENT; RN TO ASSESS AND TEACH/ CLINICAL TRIAL DATA MANAGER /BORING MILL OPERATOR FOR METAL TO OBSERVE AND TEACH WARNING SIGNS AND SYMPTOMS TO AVOID HOSPITALIZATION.] Future Scheduled Test COVID-19 P OSITIVE/SYMPTOMATIC MANAGEMENT; RN TO ASSESS AND TEACH, CLINICAL TRIAL DATA MANAGER/BORING MILL OPERATOR FOR METAL TO OBSERVE AND TEACH SIGNS OF COVID-19 AND PROVIDE EARLY INTERVENTIONS TO MINIMIZE RISK OF HOSPITALIZATION. [code = COVID-19 POSITIVE/SYMPTOMATIC MANAGEMENT; RN TO ASSESS AND TEACH, CLINICAL TRIAL DATA MANAGER/BORING MILL OPERATOR FOR METAL TO OBSERVE AND TEACH SIGNS OF COVID-19 AND PROVIDE EARLY INTERVENTIONS TO MINIMIZE RISK OF HOSPITALIZATION.] Future Scheduled Test SKIN INTEG RITY RN TO ASSESS AND TEACH, CLINICAL TRIAL DATA MANAGER/BORING MILL OPERATOR FOR METAL TO OBSERVE AND TEACH INTEGUMENTARY STATUS TO IDENTIFY CHANGES AND INTERVENE TO MINIMIZE COMPLICATIONS. PROVIDE SKILLED TEACHING OF GENERAL WOUND AND SKIN CARE AND PREVENTION RELATED TO POTENTIAL FOR OR ACTUAL ALTERED SKIN INTEGRITY. [code = SKIN INTEGRITY RN TO ASSESS AND TEACH, CLINICAL TRIAL DATA MANAGER/BORING MILL OPERATOR FOR METAL TO OBSERVE AND TEACH INTEGUMENTARY STATUS TO IDENTIFY CHANGES AND INTERVENE TO MINIMIZE COMPLICATIONS. PROVIDE SKILLED TEACHING OF GENERAL WOUND AND SKIN CARE AND PREVENTION RELATED TO POTENTIAL FOR OR ACTUAL ALTERED SKIN INTEGRITY.] Future Scheduled Test PAIN MANAG EMENT; RN TO ASSESS AND TEACH, BORING MILL OPERATOR FOR METAL/CLINICAL TRIAL DATA MANAGER TO OBSERVE AND TEACH AND PROVIDE EDUCATION ON PAIN MANAGEMENT TECHNIQUES. [code = PAIN MANAGEMENT; RN TO ASSESS AND TEACH, BORING MILL OPERATOR FOR METAL/CLINICAL TRIAL DATA MANAGER TO OBSERVE AND TEACH AND PROVIDE EDUCATION ON PAIN MANAGEMENT TECHNIQUES.] Future Scheduled Test DIABETES M ANAGEMENT; RN TO ASSESS AND TEACH, BORING MILL OPERATOR FOR METAL/CLINICAL TRIAL DATA MANAGER TO OBSERVE AND TEACH INSTRUCTIONS OF DIABETIC CARE TO INCLUDE: DIABETIC DIET, SKIN CARE, SIGNS AND SYMPTOMS OF HYPO/HYPERGLYCEMIA, PROPER ADMINISTRATION OF DIABETIC MEDICATION. RN/BORING MILL OPERATOR FOR METAL/CLINICAL TRIAL DATA MANAGER TO INSTRUCT ON DIABETIC FOOT CARE AND MONITOR FOR SKIN LESIONS ON LOWER EXTREMITIES. BLOOD GLUCOSE TESTING 1 TIME DAILY. RN TO ASSESS AND TEACH, BORING MILL OPERATOR FOR METAL/CLINICAL TRIAL DATA MANAGER TO OBSERVE AND TEACH PATIENT/CAREGIVER ABILITY TO PERFORM AND RECORD BLOOD GLUCOSE TESTING ORDERED AND TO REPORT ABNORMAL FINDINGS TO PHYSICIAN. RN/BORING MILL OPERATOR FOR METAL/CLINICAL TRIAL DATA MANAGER MAY PERFORM BLOOD GLUCOSE TEST NEEDED. RN/BORING MILL OPERATOR FOR METAL/CLINICAL TRIAL DATA MANAGER TO REPORT TO PHYSICIAN BLOOD GLUCOSE READINGS GREATER THAN 300 OR LESS THAN 70. RN/BORING MILL OPERATOR FOR METAL/CLINICAL TRIAL DATA MANAGER TO INSTRUCT PATIENT ON IMPORTANCE OF HGBA1C MONITORING, KIDNEY FUNCTION TEST, EYE AND FOOT EXAMS. [code = DIABETES MANAGEMENT; RN TO ASSESS AND TEACH, BORING MILL OPERATOR FOR METAL/CLINICAL TRIAL DATA MANAGER TO OBSERVE AND TEACH INSTRUCTIONS OF DIABETIC CARE TO INCLUDE: DIABETIC DIET, SKIN CARE, SIGNS AND SYMPTOMS OF HYPO/HYPERGLYCEMIA, PROPER ADMINISTRATION OF DIABETIC MEDICATION. RN/BORING MILL OPERATOR FOR METAL/CLINICAL TRIAL DATA MANAGER TO INSTRUCT ON DIABETIC FOOT CARE AND MONITOR FOR SKIN LESIONS ON LOWER EXTREMITIES. BLOOD GLUCOSE TESTING 1 TIME DAILY. RN TO ASSESS AND TEACH, BORING MILL OPERATOR FOR METAL/CLINICAL TRIAL DATA MANAGER TO OBSERVE AND TEACH PATIENT/CAREGIVER ABILITY TO PERFORM AND RECORD BLOOD GLUCOSE TESTING ORDERED AND TO REPORT ABNORMAL FINDINGS TO PHYSICIAN. RN/BORING MILL OPERATOR FOR METAL/CLINICAL TRIAL DATA MANAGER MAY PERFORM BLOOD GLUCOSE TEST NEEDED. RN/BORING MILL OPERATOR FOR METAL/CLINICAL TRIAL DATA MANAGER TO REPORT TO PHYSICIAN BLOOD GLUCOSE READINGS GREATER THAN 300 OR LESS THAN 70. RN/BORING MILL OPERATOR FOR METAL/CLINICAL TRIAL DATA MANAGER TO INSTRUCT PATIENT ON IMPORTANCE OF HGBA1C MONITORING, KIDNEY FUNCTION TEST, EYE AND FOOT EXAMS.] Future Scheduled Test ANEMIA MAN AGEMENT; RN TO ASSESS AND TEACH, BORING MILL OPERATOR FOR METAL/CLINICAL TRIAL DATA MANAGER TO OBSERVE AND TEACH AND PROVIDE EDUCATION ON ANEMIA. [code = ANEMIA MANAGEMENT; RN TO ASSESS AND TEACH, BORING MILL OPERATOR FOR METAL/CLINICAL TRIAL DATA MANAGER TO OBSERVE AND TEACH AND PROVIDE EDUCATION ON ANEMIA.] Future Scheduled Test FALL REDUC TION MANAGEMENT; RN TO ASSESS AND OBSERVE, CLINICAL TRIAL DATA MANAGER/BORING MILL OPERATOR FOR METAL TO OBSERVE FALL RISK FACTORS AND EDUCATE PATIENT/CAREGIVER ON STRATEGIES TO MINIMIZE THE RISK OF FALLING. [code = FALL REDUCTION MANAGEMENT; RN TO ASSESS AND OBSERVE, CLINICAL TRIAL DATA MANAGER/BORING MILL OPERATOR FOR METAL TO OBSERVE FALL RISK FACTORS AND EDUCATE [...] TO EVALUATE, OBSERVE / ASSESS, AND MONITOR, MACHINED PARTS QUALITY INSPECTOR TO OBSERVE AND MONITOR, PROVIDE SKILLED THERAPEUTIC INTERVENTION, ACTIVITY, EDUCATION, AND TRAINING TO ADDRESS; PT/MACHINED PARTS QUALITY INSPECTOR TO PROVIDE GAIT TRAINING FOR IMPROVED MOBILITY AND /OR TO NORMALIZE GAIT PATTERN NEUROMUSCULAR RE-EDUCATION / BALANCE / POSTURAL CONTROL (PT) THERAPEUTIC EXERCISES AND ESTABLISHING A HOME EXERCISE PROGRAM (PT/MACHINED PARTS QUALITY INSPECTOR) PT/MACHINED PARTS QUALITY INSPECTOR TO PROVIDE STAIR TRAINING SIT TO/FROM STAND TRANSFERS (PT/MACHINED PARTS QUALITY INSPECTOR) PT TO ASSESS / MACHINED PARTS QUALITY INSPECTOR TO MONITOR FOR AND REPORT EARLY SIGNS OF ANTICOAGULANT TOXICITY TO THE PHYSICIAN AND/OR THE RN CLINICAL CHASER APPRENTICE FOR PHYSICIAN NOTIFICATION AND TO PROVIDE PATIENT/CAREGIVER EDUCATION ON ANTICOAGULANT THERAPY PT / MACHINED PARTS QUALITY INSPECTOR TO MONITOR AND EDUCATE ON OXYGEN SATURATION DURING ADLS/IADLS, NOTIFY PHYSICIAN AND/OR THE RN CLINICAL CHASER APPRENTICE FOR PHYSICIAN NOTIFICATION AND IF O2 SATS BELOW PHYSICIAN ORDERED PARAMETERS AFTER 10 MIN OF REST PT / MACHINED PARTS QUALITY INSPECTOR TO MONITOR FOR HYPO/HYPERGLYCEMIA AND CONDUCT ROUTINE FOOT INSPECTIONS. RECORD PATIENT REPORTED BLOOD SUGAR LEVELS AND NOTIFY PHYSICIAN AND/OR THE RN CLINICAL CHASER APPRENTICE FOR PHYSICIAN NOTIFICATION IF BLOOD SUGAR LEVELS ARE OUTSIDE ORDERED PARAMETERS. TEACH PATIENT/CAREGIVER ON DAILY FOOT INSPECTIONS PT TO ASSESS / MACHINED PARTS QUALITY INSPECTOR TO MONITOR CARDIO/RESPIRATORY SYSTEM; AND NOTIFY THE PHYSICIAN AND/OR THE RN CLINICAL CHASER APPRENTICE FOR PHYSICIAN NOTIFICATION FOR EARLY SIGNS AND SYMPTOMS OF EXACERBATION OR DETERIORATION. PT/MACHINED PARTS QUALITY INSPECTOR TO IDENTIFY FALL RISK FACTORS; EDUCATE THE PATIENT/CAREGIVER ON WAYS TO REDUCE FALL RISK FACTORS AND ESTABLISH HOME EXERCISE PROGRAM TO MINIMIZE FALL RISK. MAY TEACH THE PATIENT FLOOR RECOVERY WHEN CLINICALLY APPROPRIATE PT / MACHINED PARTS QUALITY INSPECTOR MAY EDUCATE ON PAIN MANAGEMENT CLINICALLY INDICATED, INCLUDING NON-PHARMACOLOGICAL PAIN REDUCTION TECHNIQUES. [code = AGENCY MAY PERFORM A RESUMPTION OF CARE VISIT FOLLOWING ANY HOSPITAL ADMISSION. PT TO EVALUATE, OBSERVE / ASSESS, AND MONITOR, MACHINED PARTS QUALITY INSPECTOR TO OBSERVE AND MONITOR, PROVIDE SKILLED THERAPEUTIC INTERVENTION, ACTIVITY, EDUCATION, AND TRAINING TO ADDRESS; PT/MACHINED PARTS QUALITY INSPECTOR TO PROVIDE GAIT TRAINING FOR IMPROVED MOBILITY AND /OR TO NORMALIZE GAIT PATTERN NEUROMUSCULAR RE-EDUCATION / BALANCE / POSTURAL CONTROL (PT) THERAPEUTIC EXERCISES AND ESTABLISHING A HOME EXERCISE PROGRAM (PT/MACHINED PARTS QUALITY INSPECTOR) PT/MACHINED PARTS QUALITY INSPECTOR TO PROVIDE STAIR TRAINING SIT TO/FROM STAND TRANSFERS (PT/MACHINED PARTS QUALITY INSPECTOR) PT TO ASSESS / MACHINED PARTS QUALITY INSPECTOR TO MONITOR FOR AND REPORT EARLY SIGNS OF ANTICOAGULANT TOXICITY TO THE PHYSICIAN AND/OR THE RN CLINICAL CHASER APPRENTICE FOR PHYSICIAN NOTIFICATION AND TO PROVIDE PATIENT/CAREGIVER EDUCATION ON ANTICOAGULANT THERAPY PT / MACHINED PARTS QUALITY INSPECTOR TO MONITOR AND EDUCATE ON OXYGEN SATURATION DURING ADLS/IADLS, NOTIFY PHYSICIAN AND/OR THE RN CLINICAL CHASER APPRENTICE FOR PHYSICIAN NOTIFICATION AND IF O2 SATS BELOW PHYSICIAN ORDERED PARAMETERS AFTER 10 MIN OF REST PT / MACHINED PARTS QUALITY INSPECTOR TO MONITOR FOR HYPO/HYPERGLYCEMIA AND CONDUCT ROUTINE FOOT INSPECTIONS. RECORD PATIENT REPORTED BLOOD SUGAR LEVELS AND NOTIFY PHYSICIAN AND/OR THE RN CLINICAL CHASER APPRENTICE FOR PHYSICIAN NOTIFICATION IF BLOOD SUGAR LEVELS ARE OUTSIDE ORDERED PARAMETERS. TEACH PATIENT/CAREGIVER ON DAILY FOOT INSPECTIONS PT TO ASSESS / MACHINED PARTS QUALITY INSPECTOR TO MONITOR CARDIO/RESPIRATORY SYSTEM; AND NOTIFY THE PHYSICIAN AND/OR THE RN CLINICAL CHASER APPRENTICE FOR PHYSICIAN NOTIFICATION FOR EARLY SIGNS AND SYMPTOMS OF EXACERBATION OR DETERIORATION. PT/MACHINED PARTS QUALITY INSPECTOR TO IDENTIFY FALL RISK FACTORS; EDUCATE THE PATIENT/CAREGIVER ON WAYS TO REDUCE FALL RISK FACTORS AND ESTABLISH HOME EXERCISE PROGRAM TO MINIMIZE FALL RISK. MAY TEACH THE PATIENT FLOOR RECOVERY WHEN CLINICALLY APPROPRIATE PT / MACHINED PARTS QUALITY INSPECTOR MAY EDUCATE ON PAIN MANAGEMENT CLINICALLY INDICATED, [...] End Date/Time Encounter Type Admission Type Attending [facility] Care Department Encounter ID Discharge Date Discharge Status Discharge Condition Discharge Reason Percent Goals Met 2024-08-01 00:00:00 2024-09-29 00:00:00 Outpatient NEW ADMISSION [facility] [id number] 12.50
--- OUTSIDE RECORDS SUMMARY | 2024-08-28 16:16 | XMS_ITS | Encounter Summary ---
Author Organization [facility] Address [address] [place] [address] Care Team Providers Care Presentation Manager Name Role Phone Horacio Griffith MD Primary Care Provider Josy Vazquez MD Primary Care Provider [place] Encounter Details Date Type Department Care Team Description 05/23/2019 Home Health Certification Medical Records [address] [address] Social History Tobacco Use Types Packs/Day Years [...] on filedocumented in this encounter Care Teams Presentation Manager Relationship Specialty Start Date End Date Horacio Griffith MD PCP - General Internal Medicine 04/27/17 02/09/20 Josy Chapman MD PCP - General Internal Medicine 02/10/20 documented as of this encounter
--- OUTSIDE RECORDS SUMMARY | 2024-08-28 16:16 | XMS_ITS | Encounter Summary ---
Author Organization [facility] Address [address] [place] [address] Care Team Providers Care Cross Tie Cutter Name Role Phone Horacio Griffith MD Primary Care Provider Unavaila ble Josy Chapman MD Primary Care Provider Unavaila reena Reason for Visit * Reason Onset Date Comments refill request 02/05/2020 Encounter Details Date Type Department Care Team Description 02/05/2020 Refill Endocrinology - [place] [address] [place] [address] Cj Dumont MD refill request Social History Tobacco Use Types Packs/Day Years Used Date Smoking Tobacco: Never Cigarettes Smokeless Tobacco: Never Alcohol Use Standard Drinks/Week Comments No 0 (1 standard drink = 0.6 oz pur e alcohol) Sex Assigned at Date Recorded Not on file documented as of this encounter Miscellaneous Notes * Telephone Encounter - Alejandra Sharma - 02/14/2020 9:56 AM EDT No longer a [facility] patient. * Telephone Encounter - Eugenie Marks M.A. - 02/07/2020 12:04 PM EDT Please scheduled an appt with a provider. Dr. Griffith no longer a pcp. * Telephone Encounter - Cristin-Kathya Weber M.A. - 02/05/2020 4:59 PM EDT These type of refills being refilled by adult med / endo only does speciality meds * Telephone Encounter - Niurka Allen - 02/05/2020 3:37 PM EDT Patient would like script to be: E-PRESCRIBED/FAXED TO PHARMACY When was the patients last office visit in Adult Medicine?: 08/20/2019 When was the last time the patient saw their PCP? Does patient have an upcoming appointment? Yes 02/21/2020 (THE MEDICATION IS NOT ON THE MED LIST AND IS IDENTIFIED BELOW): {MED LIST:50910) Med name: [place] for Insulin Glargine 100 UNIT/ML Solution Pen-injector, and Insulin Aspart (NOVOLOG FLEXPEN) 100 UNIT/ML Solution Pen-injector Dosage: n/a # of tablets: n/a Local pharmacy with request for 90 -day supply Instructions: Patient injects twice a day Did you check the pharmacy information above?: YES Patients current [place] carrier[place] / Product Type: MEDICAREFEE-FOR-SERVICE documented in this encounter Plan of Treatment Not on file documented as of this encounter Visit Diagnoses Not on filedocumented in this encounter Care Teams Cross Tie Cutter Relationship Specialty Start Date End Date Horacio Griffith MD PCP - General Internal Medicine 04/27/17 02/09/20 Josy Chapman MD PCP - General Internal Medicine 02/10/20 documented as of this encounter
--- OUTSIDE RECORDS SUMMARY | 2024-08-28 16:16 | XMS_ITS | Encounter Summary ---
Author Organization [facility] Address [address] [place] [address] Care Team Providers Care Lead Custodian Name Role Phone Horacio Griffith MD Primary Care Provider Josy Vazquez MD Primary Care Provider [place] Encounter Details Date Type Department Care Team Description 04/11/2019 [facility] Medical Records [address] [place] [address] Social History Tobacco Use Types Packs/Day Years [...] on filedocumented in this encounter Care Teams Lead Custodian Relationship Specialty Start Date End Date Horacio Griffith MD PCP - General Internal Medicine 04/27/17 02/09/20 Josy Chapman MD PCP - General Internal Medicine 02/10/20 documented as of this encounter
--- OUTSIDE RECORDS SUMMARY | 2024-08-28 16:16 | XMS_ITS | Encounter Summary ---
Author Organization [facility] Address [address] [place] [address] Care Team Providers Care Sewage Plant Attendant Name Role Phone Horacio Griffith MD Primary Care Provider Unavaila ble Josy Chapman MD Primary Care Provider Unavaila ble Reason for Visit * Reason Comments E-prescribe Rx Request Encounter Details Date Type Department Care Team Description 01/25/2020 Refill Gastroenterology - [place] [address] [facility] [address] [place] [id number] Shant Hernandez MD [address] [facility] [address] [place] [address] E-prescribe Rx Request Social History Tobacco Use [...] on filedocumented in this encounter Care Teams Sewage Plant Attendant Relationship Specialty Start Date End Date Horacio Griffith MD PCP - General Internal Medicine 04/27/17 02/09/20 Josy Chapman MD PCP - General Internal Medicine 02/10/20 documented as of this encounter
--- OUTSIDE RECORDS SUMMARY | 2024-08-28 16:16 | XMS_ITS | Encounter Summary ---
Author Organization [facility] Address [address] [place] [address] Care Team Providers Care Stucco Plasterer Name Role Phone Horacio Griffith MD Primary Care Provider Unavaila ble Josy Chapman MD Primary Care Provider Unavaila ble Reason for Visit * Reason Onset Date Comments refill request 01/25/2019 Encounter Details Date Type Department Care Team Description 01/25/2019 Refill Gastroenterology - [place] [address] [place] [id number] Shant Hernandez MD [address] [place] [address] refill request Social History Tobacco Use Types Packs/Day Years Used Date Smoking Tobacco: Never Cigarettes Smokeless Tobacco: Never Alcohol Use Standard Drinks/Week Comments No 0 (1 standard drink = 0.6 oz pur e alcohol) Sex Assigned at Date Recorded Not on file documented as of this encounter Miscellaneous Notes * Telephone Encounter - Gianna Blanco - 01/25/2019 10:00 AM EDT Patient would like script to be: E-PRESCRIBED/FAXED TO PHARMACY WHEN WAS THE PATIENT'S LAST APPOINTMENT WITH THE PRESCRIBING PROVIDER? No info Does patient have an upcoming appointment? (THE MEDICATION REQUESTED IS ON THE MED LIST ABOVE) All of the medications requested were on the CURRENT MEDS list Did you check the Pharmacy information above?: YES Patient wants: 30 -day supply Is this a mail order prescription request ? NO Patients current insurance carrier is: Payor: MEDICARE-[employer] / Plan: MEDICARE[employer] / Product Type: MEDICARE [id number] documented in this encounter Plan of Treatment Not on file documented as of this encounter Visit Diagnoses Not on filedocumented in this encounter Care Teams Stucco Plasterer Relationship Specialty Start Date End Date Horacio Griffith MD PCP - General Internal Medicine 04/27/17 02/09/20 Josy Chapmna MD PCP - General Internal Medicine 02/10/20 documented as of this encounter
--- OUTSIDE RECORDS SUMMARY | 2024-08-28 16:16 | XMS_ITS | Encounter Summary ---
Author Organization [facility] Address [address] [place] [address] Care Team Providers Care Professor Of Food Biochemistry Name Role Phone Horacio Griffith MD Primary Care Provider Josy Vazquez MD Primary Care Provider [place] Encounter Details Date Type Department Care Team Description 06/17/2019 Home Health Certification Medical Records [address] [address] Social History Tobacco Use Types Packs/Day Years [...] on filedocumented in this encounter Care Teams Professor Of Food Biochemistry Relationship Specialty Start Date End Date Horacio Griffith MD PCP - General Internal Medicine 04/27/17 02/09/20 Josy Chapman MD PCP - General Internal Medicine 02/10/20 documented as of this encounter
--- OUTSIDE RECORDS SUMMARY | 2024-08-28 16:16 | XMS_ITS | Encounter Summary ---
Author Organization [facility] Address [address] [place] [address] Care Team Providers Care Ship Carpenter Name Role Phone Horacio Griffith MD Primary Care Provider Josy Vazquez MD Primary Care Provider [place] Encounter Details Date Type Department Care Team Description 06/12/2019 Cellophane Press Operator Report Medical Records [address] [place] [address] Waqas Morris MD Social History Tobacco Use Types Packs/Day [...] on filedocumented in this encounter Care Teams Ship Carpenter Relationship Specialty Start Date End Date Horacio Griffith MD PCP - General Internal Medicine 04/27/17 02/09/20 Josy Chapman MD PCP - General Internal Medicine 02/10/20 documented as of this encounter
--- OUTSIDE RECORDS SUMMARY | 2024-08-28 16:16 | XMS_ITS | Encounter Summary ---
Author Organization [facility] Address [address] [place] [address] Care Team Providers Care Dance Hall Hostess Name Role Phone Horacio Griffith MD Primary Care Provider Unavaila ble Josy Chapman MD Primary Care Provider Unavaila ble Reason for Visit * Reason Onset Date Comments refill request 06/06/2019 Encounter Details Date Type Department Care Team Description 06/06/2019 Refill Adult Medicine [address] [address] Horacio Griffith MD refill request Social History Tobacco Use Types Packs/Day Years Used Date Smoking Tobacco: Never Cigarettes Smokeless Tobacco: Never Alcohol Use Standard Drinks/Week Comments No 0 (1 standard drink = 0.6 oz pur e alcohol) Sex Assigned at Date Recorded Not on file documented as of this encounter Miscellaneous Notes * Telephone Encounter - Hannah Sofia M.A. - 06/06/2019 12:08 PM EST Lab Results Component Value Date HGBA1C 8.9 12/25/2018 MALBUR < 5.0 12/26/2018 MALBCR < 5.7 12/26/2018 CHOL 124 12/25/2018 LDL 51 12/25/2018 HDL 29 12/25/2018 TRIG 221 12/25/2018 GLU 403 12/25/2018 CREAT 1.25 12/25/2018 * Telephone Encounter - Tashiabaljit Swain - 06/06/2019 10:33 AM EST Patient would like script to be: E-PRESCRIBED/FAXED TO PHARMACY WHEN WAS THE PATIENT'S LAST APPOINTMENT IN ADULT MEDICINE? 05/14/19 WHEN WAS THE LAST TIME THE PATIENT SAW THEIR PCP? Same as above Does patient have an upcoming appointment? Yes 06/13/19 (THE MEDICATION REQUESTED IS ON THE MED [...] N/A Patients current insurance carrier is: Payor: [employer]IC[employer] / Plan[place] / Product Type: MEDICARE [id number] documented in this encounter Plan of Treatment Not on file documented as of this encounter Visit Diagnoses Diagnosis Type II or unspecified type diabetes mellitus with renal manifestations, not stated as uncontrolled(250.40) (HCC)- Primary Type II or unspecified type diabetes mellitus with renal manifestations, not stated as uncontrolled Type II or unspecified type diabetes mellitus with neurological manifestations, 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
--- OUTSIDE RECORDS SUMMARY | 2024-08-28 16:16 | XMS_ITS | Encounter Summary ---
Author Organization [facility] Address [address] [place] [address] Care Team Providers Care Booster Assembler Name Role Phone Josy Chapman MD Primary Care Provider [place] ble Encounter Details Date Type Department Care Team Description 05/21/2020 Cooker Syrup Report Medical Records [address] [place] [address] Social History Tobacco Use Types Packs/Day Years [...] on filedocumented in this encounter Care Teams Booster Assembler Relationship Specialty Start Date End Date Josy Chapman MD PCP - General Internal Medicine 02/10/20 documented as of this encounter
--- OUTSIDE RECORDS SUMMARY | 2024-08-28 16:16 | XMS_ITS | Encounter Summary ---
Author Organization [facility] Address [address] [place] [address] Care Team Providers Care Oyster Worker Name Role Phone Horacio Griffith MD Primary Care Provider Unavaila ble Josy Chapman MD Primary Care Provider Unavaila ble Reason for Visit * Reason Onset Date Comments VNA Call 06/04/2019 [facility] Encounter Details Date Type Department Care Team Description 06/04/2019 Telephone Internal Medicine - [address], [address] [place] [address] Horacio Griffith MD VNA Call ([facility]) Social History Tobacco Use Types Packs/Day Years Used Date Smoking Tobacco: Never Cigarettes Smokeless Tobacco: Never Alcohol Use Standard Drinks/Week Comments No 0 (1 standard drink = 0.6 oz pur e alcohol) Sex Assigned at Date Recorded Not on file documented as of this encounter Miscellaneous Notes * Telephone Encounter - Odalis Marks M.A. - 06/04/2019 1:14 PM EST SOC 05/03/19 CERT 05/03/19-07/01/19 PLACED IN FOLDER UP FRONT documented in this encounter Plan of Treatment Not on file documented as of this encounter Visit Diagnoses Not on filedocumented in this encounter Care Teams Oyster Worker Relationship Specialty Start Date End Date Horacio Griffith MD PCP - General Internal Medicine 04/27/17 02/09/20 Josy Chapman MD PCP - General Internal Medicine 02/10/20 documented as of this encounter
--- OUTSIDE RECORDS SUMMARY | 2024-08-28 16:16 | XMS_ITS | Encounter Summary ---
Author Organization [facility] Address [address] [place] [address] Care Team Providers Care Signal Operator Technical Name Role Phone Horacio Griffith MD Primary Care Provider Josy Vazquez MD Primary Care Provider [place] Encounter Details Date Type Department Care Team Description 07/02/2019 Home Health Certification Medical Records [address] [address] Social History Tobacco Use Types Packs/Day Years [...] on filedocumented in this encounter Care Teams Signal Operator Technical Relationship Specialty Start Date End Date Horacio Griffith MD PCP - General Internal Medicine 04/27/17 02/09/20 Josy Chapman MD PCP - General Internal Medicine 02/10/20 documented as of this encounter
--- OUTSIDE RECORDS SUMMARY | 2024-08-28 16:16 | XMS_ITS | Encounter Summary ---
Author Organization [facility] Address [address] [place] [address] Care Team Providers Care Airfield Services Officer Name Role Phone Josy Chapman MD Primary Care Provider [phone] Encounter Details Date Type Department Care Team (Late st Contact Info) Description 07/29/2024 Lab Requisition [facility] - Main Lab [address] [place] [address] James Marie MD [address] [place] [address] Encounter for other general examination Social History [...] CBC auto differential (07/29/2024 5:37 AM EDT) [facility] WBC 8.6 4.8 - 10.8 K/mcL LAB HEMETOLOGY METHOD 07/29/2024 9:42 AM [facility] RBC 3.30(L) 4.50 - 5.50 M/mcL LAB HEMETOLOGY METHOD 07/29/2024 9:42 AM [facility] [...] 07/29/2024 9:42 AM [facility] Eosinophils Relative 2.6 % LAB HEMETOLOGY METHOD 07/29/2024 9:42 AM [facility] Basophils Relative 0.1 % LAB HEMETOLOGY METHOD 07/29/2024 9:42 AM [facility] Immature Granulocytes Relative 0.7 % LAB HEMETOLOGY METHOD 07/29/2024 9:42 AM [facility] Neutrophils Absolute 5.49 1.50 - 7.00 K/mcL LAB HEMETOLOGY METHOD 07/29/2024 9:42 AM [facility] Lymphocytes Absolute 1.73 1.00 - 5.00 K/mcL LAB HEMETOLOGY METHOD 07/29/2024 9:42 AM [facility] Monocytes Absolute 1.04(H) 0.20 - 1.00 K/mcL LAB HEMETOLOGY METHOD 07/29/2024 9:42 AM [facility] Eosinophils Absolute 0.22 0.00 - 0.50 K/mcL LAB HEMETOLOGY METHOD 07/29/2024 9:42 AM [facility] Basophils Absolute 0.01 0.00 - 0.20 K/mcL LAB HEMETOLOGY METHOD 07/29/2024 9:42 AM [facility] Immature Granulocytes Absolute 0.06(H) 0.00 - 0.03 K/mcL LAB HEMETOLOGY METHOD 07/29/2024 9:42 AM [facility] Blood Venous blood specimen / Unknown Venipuncture / Unknown 07/29/2024 5:37 AM EDT 07/29/2024 8:42 AM EDT us James Marie MD LAB BLOOD ORDERABLES Final Resu lt [facility] [address] [place] [address], * (ABNORMAL) Basic metabolic panel (07/29/2024 5:37 AM EDT) Sodium 138 133 - 145 mmol/L LAB [...] LAB CHEMISTRY METHOD 07/29/2024 9:39 AM EDT [facility] Calcium 9.4 8.5 - 10.5 mg/dL LAB CHEMISTRY METHOD 07/29/2024 9:39 AM EDT [facility] Blood Venous blood specimen / Unknown Venipuncture / Unknown 07/29/2024 5:37 AM EDT 07/29/2024 8:42 AM EDT us James Marie MD LAB BLOOD ORDERABLES Final Resu lt [facility] [address] [place] [address], documented in this encounter Visit Diagnoses Diagnosis Encounter for other general examination documented in this encounter Care Teams Airfield Services Officer Relationship Specialty Start Date End Date Josy Chapman MD [address] [place] [address] PCP - General Internal Medicine 07/21/24 documented as of this encounter
--- OUTSIDE RECORDS SUMMARY | 2024-08-28 16:16 | XMS_ITS | Encounter Summary ---
Author Organization [facility] Address [address] [place] [address] Care Team Providers Care Ship Rigger Name Role Phone Horacio Griffith MD Primary Care Provider Unavaila ble Josy Chapman MD Primary Care Provider Unavaila ble Reason for Visit * Reason Comments E-prescribe Rx Request Encounter Details Date Type Department Care Team Description 10/09/2019 Refill Internal Medicine - [address], [address] [place] [address] Horacio Griffith MD E-prescribe Rx Request Social History Tobacco Use Types Packs/Day Years Used Date Smoking Tobacco: Never Cigarettes Smokeless Tobacco: Never Alcohol Use Standard Drinks/Week Comments No 0 (1 standard drink = 0.6 oz pur e alcohol) Sex Assigned at Date Recorded Not on file documented as of this encounter Miscellaneous Notes * Telephone Encounter - Winston Hanson M.A. - 10/10/2019 4:07 PM EDT Last ov 08/20/19 Lab Results Component Value Date HGBA1C 7.8 06/13/2019 * Telephone Encounter - Janneth Garcia - 10/09/2019 1:17 PM EDT Patient would like script to be: E-PRESCRIBED/FAXED TO PHARMACY WHEN WAS THE PATIENT'S LAST APPOINTMENT IN ADULT MEDICINE? 08/20/2019 WHEN WAS THE LAST TIME THE PATIENT SAW THEIR PCP? Same as above Does patient have an upcoming appointment? (THE [...] / Plan[place] / Product Type: MEDICARE [id number] documented in this encounter Plan of Treatment Not on file documented as of this encounter Visit Diagnoses Not on filedocumented in this encounter Care Teams Ship Rigger Relationship Specialty Start Date End Date Horacio Griffith MD PCP - General Internal Medicine 04/27/17 02/09/20 Josy Chapman MD PCP - General Internal Medicine 02/10/20 documented as of this encounter
--- OUTSIDE RECORDS SUMMARY | 2024-08-28 16:16 | XMS_ITS | Encounter Summary ---
Author Organization [facility] Address [address] [place] [address] Care Team Providers Care Nitric Acid Concentrator Operator Name Role Phone Josy Chapman MD Primary Care Provider Encounter Details Date Type Department Care Team (Late st Contact Info) Description 07/21/2024 Lab Requisition [facility] - Main Lab [address] [place] [phone] James Marie MD [address] [place] [address] Encounter for other general examination Social History [...] CBC auto differential (07/21/2024 7:03 AM EDT) [facility] Signature WBC 8.3 4.8 - 10.8 K/mcL LAB HEMETOLOGY METHOD 07/21/2024 10:07 AM [facility] RBC 2.90(L) 4.50 - 5.50 M/mcL LAB HEMETOLOGY METHOD 07/21/2024 10:07 AM [facility] Hemoglobin 8.8(L) 13.5 - 17.5 g/dL LAB HEMETOLOGY METHOD 07/21/2024 10:07 AM [facility] Hematocrit 26.3(L) 42.0 - 54.0 % LAB HEMETOLOGY METHOD 07/21/2024 10:07 AM [facility] MCV 92.0 79.0 - 98.0 FL LAB HEMETOLOGY METHOD 07/21/2024 10:07 AM [facility] MCH 30.8 27.0 - 32.0 pcg LAB HEMETOLOGY METHOD 07/21/2024 10:07 AM [facility] MCHC 33.5 32.0 - 37.0 g/dL LAB HEMETOLOGY METHOD 07/21/2024 10:07 AM [facility] RDW 12.8 11.0 - 15.0 % LAB HEMETOLOGY METHOD 07/21/2024 10:07 AM [facility] Platelets 260 130 - 400 K/mcL LAB HEMETOLOGY METHOD 07/21/2024 10:07 AM [facility] MPV 10.6 7.0 - 11.0 FL LAB HEMETOLOGY METHOD 07/21/2024 10:07 AM [facility] NRBC 0.0 <1.0 % LAB HEMETOLOGY METHOD 07/21/2024 10:07 AM [facility] NRBC Absolute 0.00 <0.10 K/mcL LAB HEMETOLOGY METHOD 07/21/2024 10:07 AM [facility] Neutrophils Relative 63.5 % LAB HEMETOLOGY METHOD 07/21/2024 10:07 AM [facility] Lymphocytes Relative 15.3 % LAB HEMETOLOGY METHOD 07/21/2024 10:07 AM [facility] Monocytes Relative 14.4 % LAB HEMETOLOGY METHOD 07/21/2024 10:07 AM [facility] Eosinophils Relative 6.2 % LAB HEMETOLOGY METHOD 07/21/2024 10:07 AM [facility] Basophils Relative 0.1 % LAB HEMETOLOGY METHOD 07/21/2024 10:07 AM [facility] Immature Granulocytes Relative 0.5 % LAB HEMETOLOGY METHOD 07/21/2024 10:07 AM [facility] Neutrophils Absolute 5.27 1.50 - 7.00 K/mcL LAB HEMETOLOGY METHOD 07/21/2024 10:07 AM [facility] Lymphocytes Absolute 1.27 1.00 - 5.00 K/mcL LAB HEMETOLOGY METHOD 07/21/2024 10:07 AM [facility] Monocytes Absolute 1.19(H) 0.20 - 1.00 K/mcL LAB HEMETOLOGY METHOD 07/21/2024 10:07 AM [facility] Eosinophils Absolute 0.51(H) 0.00 - 0.50 K/mcL LAB HEMETOLOGY METHOD 07/21/2024 10:07 AM [facility] Basophils Absolute 0.01 0.00 - 0.20 K/mcL LAB HEMETOLOGY METHOD 07/21/2024 10:07 AM [facility] Immature Granulocytes Absolute 0.04(H) 0.00 - 0.03 K/mcL LAB HEMETOLOGY METHOD 07/21/2024 10:[address] [facility] Blood Venous blood specimen / Unknown Venipuncture / Unknown 07/21/2024 7:03 AM EDT 07/21/2024 9:17 AM EDT James Marie MD LAB BLOOD ORDERABLES Final Resu lt Performing Organization Address [facility]/ZIP Co de Phone Number [facility] [address] [place] [address], [place] [phone] * (ABNORMAL) Magnesium (07/21/2024 7:03 AM EDT) Pathologist [facility] Magnesium 1.5(L) 1.9 - 2.6 mg/dL LAB CHEMISTRY METHOD 07/21/2024 10:[address] [facility] Blood Venous blood specimen / Unknown Venipuncture / Unknown 07/21/2024 7:03 AM EDT 07/21/2024 9:17 AM EDT James Marie MD LAB BLOOD ORDERABLES Final Resu lt Performing Organization Address [facility] Co de Phone Number [facility] [address] [place] [address], [place] [phone] * (ABNORMAL) Comprehensive metabolic panel (07/21/2024 7:03 AM EDT) Pathologist [facility] Sodium 138 133 - 145 mmol/L LAB CHEMISTRY METHOD 07/21/2024 10:[address] [facility] Potassium 4.0 3.5 - 5.5 mmol/L LAB CHEMISTRY METHOD 07/21/2024 10:[address] [facility] Chloride 108 96 - 110 mmol/L LAB CHEMISTRY METHOD 07/21/2024 10:[address] [facility] CO2 20(L) 21 - 32 mmol/L LAB CHEMISTRY METHOD 07/21/2024 10:23 AM [facility] Anion Gap 10 3 - 11 LAB CHEMISTRY METHOD 07/21/2024 10:23 AM [facility] Glucose 98 70 - 100 mg/dL LAB CHEMISTRY METHOD 07/21/2024 10:23 AM [facility] BUN 15 5 - 25 mg/dL LAB CHEMISTRY METHOD 07/21/2024 10:23 AM [facility] Creatinine 0.90 0.70 - 1.30 mg/dL LAB CHEMISTRY METHOD 07/21/2024 10:23 AM [facility] eGFR 90 >=60 mL/min/1. 73m2 LAB CHEMISTRY METHOD 07/21/2024 10:23 AM [facility] Comment:Calculation based on the??Chronic Kidney Disease Epidemiology Collaboration (CKD-EPI) equation refit??without adjustment for race. BUN/Creatinine Ratio 16.7 LAB CHEMISTRY METHOD 07/21/2024 10:23 AM [facility] Calcium 8.7 8.5 - 10.5 mg/dL LAB CHEMISTRY METHOD 07/21/2024 10:23 AM [facility] AST (SGOT) 42 10 - 42 unit/L LAB CHEMISTRY METHOD 07/21/2024 10:23 AM [facility] ALT (SGPT) 41 10 - 60 unit/L LAB CHEMISTRY METHOD 07/21/2024 10:23 AM [facility] Alkaline Phosphatase 82 42 - 121 unit/L LAB CHEMISTRY METHOD 07/21/2024 10:23 AM [facility] Total Protein 5.4(L) 6.0 - 8.0 g/dL LAB CHEMISTRY METHOD 07/21/2024 10:23 AM [facility] Albumin 2.6(L) 3.2 - 5.0 g/dL LAB CHEMISTRY METHOD 07/21/2024 10:23 AM [facility] Total Bilirubin 1.6(H) 0.0 - 1.4 mg/dL LAB CHEMISTRY METHOD 07/21/2024 10:[address] [facility] Blood Venous blood specimen / Unknown Venipuncture / Unknown 07/21/2024 7:03 AM EDT 07/21/2024 9:17 AM EDT us James Marie MD LAB BLOOD ORDERABLES Final Resu lt [facility] [address] [place] [address], documented in this encounter Visit Diagnoses Diagnosis Encounter for other general examination documented in this encounter Care Teams Nitric Acid Concentrator Operator Relationship Specialty Start Date End Date Josy Chapman MD [address] [place] [address] PCP - General Internal Medicine 07/21/24 documented as of this encounter
--- OUTSIDE RECORDS SUMMARY | 2024-08-28 16:16 | XMS_ITS | Encounter Summary ---
Author Organization [facility] Address [address] [place] [address] Care Team Providers Care Typing Section Chief Name Role Phone Horacio Griffith MD Primary Care Provider Josy Vazquez MD Primary Care Provider [place] Encounter Details Date Type Department Care Team Description 04/03/2019 [facility] Medical Records [address] [place] [address] Social History Tobacco Use Types Packs/Day Years [...] on filedocumented in this encounter Care Teams Typing Section Chief Relationship Specialty Start Date End Date Horacio Griffith MD PCP - General Internal Medicine 04/27/17 02/09/20 Josy Chapman MD PCP - General Internal Medicine 02/10/20 documented as of this encounter
--- OUTSIDE RECORDS SUMMARY | 2024-08-28 16:16 | XMS_ITS | Encounter Summary ---
Author Organization [facility] Address [address] [place] [address] Care Team Providers Care Chart Calculator Name Role Phone Josy Chapman MD Primary Care Provider [phone] Encounter Details Date Type Department Care Team (Late st Contact Info) Description 07/24/2024 Lab Requisition [facility] - Main Lab [address] [place] [phone] James Marie MD [address] [place] [address] Encounter for other general examination Social History [...] CBC auto differential (07/24/2024 2:56 PM EDT) [facility] WBC 7.0 4.8 - 10.8 K/mcL LAB HEMETOLOGY METHOD 07/24/2024 3:[address] [facility] RBC 3.00(L) 4.50 - 5.50 M/mcL LAB HEMETOLOGY METHOD 07/24/2024 3:[address] [facility] Hemoglobin 9.3(L) 13.5 - 17.5 g/dL LAB HEMETOLOGY METHOD 07/24/2024 3:[address] [facility] Hematocrit 28.3(L) 42.0 - 54.0 % LAB HEMETOLOGY METHOD 07/24/2024 3:[address] [facility] MCV 94.6 79.0 - 98.0 FL LAB HEMETOLOGY METHOD 07/24/2024 3:[address] [facility] MCH 31.1 27.0 - 32.0 pcg LAB HEMETOLOGY METHOD 07/24/2024 3:[address] [facility] MCHC 32.9 32.0 - 37.0 g/dL LAB HEMETOLOGY METHOD 07/24/2024 3:[address] [facility] RDW 13.2 11.0 - 15.0 % LAB HEMETOLOGY METHOD 07/24/2024 3:[address] [facility] Platelets 335 130 - 400 K/mcL LAB HEMETOLOGY METHOD 07/24/2024 3:[address] [facility] MPV 10.3 7.0 - 11.0 FL LAB HEMETOLOGY METHOD 07/24/2024 3:[address] [facility] NRBC 0.0 <1.0 % LAB HEMETOLOGY METHOD 07/24/2024 3:[address] [facility] NRBC Absolute 0.00 <0.10 K/mcL LAB HEMETOLOGY METHOD 07/24/2024 3:[address] [facility] Neutrophils Relative 62.7 % LAB HEMETOLOGY METHOD 07/24/2024 3:[address] [facility] Lymphocytes Relative 16.9 % LAB HEMETOLOGY METHOD 07/24/2024 3:[address] [facility] Monocytes Relative 15.9 % LAB HEMETOLOGY METHOD 07/24/2024 3:[address] [facility] Eosinophils Relative 3.7 % LAB HEMETOLOGY METHOD 07/24/2024 3:[address] [facility] Basophils Relative 0.1 % LAB HEMETOLOGY METHOD 07/24/2024 3:[address] [facility] Immature Granulocytes Relative 0.7 % LAB HEMETOLOGY METHOD 07/24/2024 3:[address] [facility] Neutrophils Absolute 4.40 1.50 - 7.00 K/mcL LAB HEMETOLOGY METHOD 07/24/2024 3:[address] [facility] Lymphocytes Absolute 1.19 1.00 - 5.00 K/mcL LAB HEMETOLOGY METHOD 07/24/2024 3:[address] [facility] Monocytes Absolute 1.12(H) 0.20 - 1.00 K/mcL LAB HEMETOLOGY METHOD 07/24/2024 3:[address] [facility] Eosinophils Absolute 0.26 0.00 - 0.50 K/mcL LAB HEMETOLOGY METHOD 07/24/2024 3:[address] [facility] Basophils Absolute 0.01 0.00 - 0.20 K/mcL LAB HEMETOLOGY METHOD 07/24/2024 3:[address] [facility] Immature Granulocytes Absolute 0.05(H) 0.00 - 0.03 K/mcL LAB HEMETOLOGY METHOD 07/24/2024 3:[address] [facility] Blood Venous blood specimen / Unknown Venipuncture / Unknown 07/24/2024 2:56 PM EDT 07/24/2024 3:30 PM EDT us James Marie MD LAB BLOOD ORDERABLES Final Resu lt Performing Organization Address [facility]/ZIP Co de Phone Number [facility] [address] [place] [address], [place] [phone] * (ABNORMAL) Magnesium (07/24/2024 2:56 PM EDT) [facility] Magnesium 1.7(L) 1.9 - 2.6 mg/dL LAB CHEMISTRY METHOD 07/24/2024 6:[address] [facility] Blood Venous blood specimen / Unknown Venipuncture / Unknown 07/24/2024 2:56 PM EDT 07/24/2024 3:30 PM EDT us James Marie MD LAB BLOOD ORDERABLES Final Resu lt Performing Organization Address [facility] de Phone Number [facility] [address] [place] [address], [place] [phone] * (ABNORMAL) Comprehensive metabolic panel (07/24/2024 2:56 PM EDT) [facility] Sodium 141 133 - 145 mmol/L LAB CHEMISTRY METHOD 07/24/2024 6:[address] [facility] Potassium 4.4 3.5 - 5.5 mmol/L LAB CHEMISTRY METHOD 07/24/2024 6:[address] [facility] Chloride 111(H) 96 - 110 mmol/L LAB CHEMISTRY METHOD 07/24/2024 6:[address] [facility] CO2 22 21 - 32 mmol/L LAB CHEMISTRY METHOD 07/24/2024 6:22 PM [facility] Anion Gap 8 3 - 11 LAB CHEMISTRY METHOD 07/24/2024 6:22 PM [facility] Glucose 114(H) 70 - 100 mg/dL LAB CHEMISTRY METHOD 07/24/2024 6:22 PM [facility] BUN 21 5 - 25 mg/dL LAB CHEMISTRY METHOD 07/24/2024 6:22 PM [facility] Creatinine 0.98 0.70 - 1.30 mg/dL LAB CHEMISTRY METHOD 07/24/2024 6:22 PM [facility] eGFR 81 >=60 mL/min/1. 73m2 LAB CHEMISTRY METHOD 07/24/2024 6:22 PM [facility] Comment:Calculation based on the??Chronic Kidney Disease Epidemiology Collaboration (CKD-EPI) equation refit??without adjustment for race. BUN/Creatinine Ratio 21.4 LAB CHEMISTRY METHOD 07/24/2024 6:22 PM [facility] Calcium 9.0 8.5 - 10.5 mg/dL LAB CHEMISTRY METHOD 07/24/2024 6:22 PM [facility] AST (SGOT) 31 10 - 42 unit/L LAB CHEMISTRY METHOD 07/24/2024 6:22 PM [facility] ALT (SGPT) 41 10 - 60 unit/L LAB CHEMISTRY METHOD 07/24/2024 6:22 PM [facility] Alkaline Phosphatase 104 42 - 121 unit/L LAB CHEMISTRY METHOD 07/24/2024 6:22 PM [facility] Total Protein 5.9(L) 6.0 - 8.0 g/dL LAB CHEMISTRY METHOD 07/24/2024 6:22 PM [facility] Albumin 2.7(L) 3.2 - 5.0 g/dL LAB CHEMISTRY METHOD 07/24/2024 6:22 PM [facility] Total Bilirubin 1.3 0.0 - 1.4 mg/dL LAB CHEMISTRY METHOD 07/24/2024 6:[address] [facility] Blood Venous blood specimen / Unknown Venipuncture / Unknown 07/24/2024 2:56 PM EDT 07/24/2024 3:30 PM EDT us James Marie MD LAB BLOOD ORDERABLES Final Resu lt [facility] [address] [place] [address], documented in this encounter Visit Diagnoses Diagnosis Encounter for other general examination documented in this encounter Care Teams Chart Calculator Relationship Specialty Start Date End Date Josy Chapman MD [address] [place] [address] PCP - General Internal Medicine 07/21/24 documented as of this encounter
--- OUTSIDE RECORDS SUMMARY | 2024-08-28 16:16 | XMS_ITS | Encounter Summary ---
Author Organization [facility] Address [address] [place] [address] Care Team Providers Care Charge Master Specialist Name Role Phone Horacio Griffith MD Primary Care Provider Josy Vazquez MD Primary Care Provider [place] Encounter Details Date Type Department Care Team Description 05/02/2019 [facility] Medical Records [address] [place] [address] Social History Tobacco Use Types Packs/Day Years [...] on filedocumented in this encounter Care Teams Charge Master Specialist Relationship Specialty Start Date End Date Horacio Griffith MD PCP - General Internal Medicine 04/27/17 02/09/20 Josy Chapman MD PCP - General Internal Medicine 02/10/20 documented as of this encounter
--- OUTSIDE RECORDS SUMMARY | 2024-08-28 16:16 | XMS_ITS | Encounter Summary ---
Author Organization [facility] Address [address] [place] [address] Care Team Providers Care Slunk Skin Curer Name Role Phone Horacio Griffith MD Primary Care Provider Unavaila ble Josy Chapman MD Primary Care Provider Unavaila ble Reason for Visit * Reason Comments E-prescribe Rx Request Encounter Details Date Type Department Care Team Description 07/02/2018 Refill Internal Medicine - [address], [address] [place] [address] Horacio Griffith MD E-prescribe Rx Request Social History Tobacco Use Types Packs/Day Years Used Date Smoking Tobacco: Never Cigarettes Smokeless Tobacco: Never Alcohol Use Standard Drinks/Week Comments No 0 (1 standard drink = 0.6 oz pur e alcohol) Sex Assigned at Date Recorded Not on file documented as of this encounter Miscellaneous Notes * Telephone Encounter - Odalis Marks M.A. - 07/03/2018 9:23 AM EST L/S 03/05/18 F/UP 09/18/18 documented in this encounter Plan of Treatment Not on file documented as of this encounter Visit Diagnoses Not on filedocumented in this encounter Care Teams Slunk Skin Curer Relationship Specialty Start Date End Date Horacio Griffith MD PCP - General Internal Medicine 04/27/17 02/09/20 Josy Chapman MD PCP - General Internal Medicine 02/10/20 documented as of this encounter
--- OUTSIDE RECORDS SUMMARY | 2024-08-28 16:16 | XMS_ITS | Encounter Summary ---
Author Organization [facility] Address [address] [place] [address] Care Team Providers Care Executive Assistant To General Counsel Name Role Phone Horacio Griffith MD Primary Care Provider Josy Vazquez MD Primary Care Provider [place] Encounter Details Date Type Department Care Team Description 07/09/2019 Release of Information Medical Records [address] [place] [address] Abstract, Provider Social History Tobacco Use Types Packs/Day Years [...] on filedocumented in this encounter Care Teams Executive Assistant To General Counsel Relationship Specialty Start Date End Date Horacio Griffith MD PCP - General Internal Medicine 04/27/17 02/09/20 Josy Chapman MD PCP - General Internal Medicine 02/10/20 documented as of this encounter
--- OUTSIDE RECORDS SUMMARY | 2024-08-28 16:16 | XMS_ITS | Encounter Summary ---
Author Organization [facility] Address [address] [place] [address] Care Team Providers Care Pawn Shop Keeper Name Role Phone Horacio Griffith MD Primary Care Provider Josy Vazquez MD Primary Care Provider [place] Encounter Details Date Type Department Care Team Description 04/05/2019 [facility] Medical Records [address] [place] [address] Social History Tobacco Use Types Packs/Day Years [...] on filedocumented in this encounter Care Teams Pawn Shop Keeper Relationship Specialty Start Date End Date Horacio Griffith MD PCP - General Internal Medicine 04/27/17 02/09/20 Josy Chapman MD PCP - General Internal Medicine 02/10/20 documented as of this encounter
--- OUTSIDE RECORDS SUMMARY | 2024-08-28 16:17 | XMS_ITS | Encounter Summary ---
Author Organization [facility] Address [address] [place] [address] Care Team Providers Care Cast Iron Dipper Name Role Phone Horacio Griffith MD Primary Care Provider Josy Vazquez MD Primary Care Provider [place] Encounter Details Date Type Department Care Team Description 05/03/2017 [facility] Medical Records [address] [place] [address] Abstract, Provider Social History Tobacco Use Types [...] on filedocumented in this encounter Care Teams Cast Iron Dipper Relationship Specialty Start Date End Date Horacio Griffith MD PCP - General Internal Medicine 04/27/17 02/09/20 Josy Chapman MD PCP - General Internal Medicine 02/10/20 documented as of this encounter
--- OUTSIDE RECORDS SUMMARY | 2024-08-28 16:17 | XMS_ITS | Encounter Summary ---
Author Organization [facility] Address [address] [place] [address] Care Team Providers Care Head Knitting Machine Fixer Name Role Phone Josy Chapman MD Primary Care Provider Encounter Details Date Type Department Care Team (Late st Contact Info) Description 07/27/2024 Lab Requisition [facility] - Main Lab [address] [place] [phone] James Marie MD [address] [place] [address] Encounter for other general examination Social History [...] CBC auto differential (07/27/2024 6:30 AM EDT) [facility] Signature WBC 8.7 4.8 - 10.8 K/mcL LAB HEMETOLOGY METHOD 07/27/2024 10:25 AM [facility] RBC 3.00(L) 4.50 - 5.50 M/mcL LAB HEMETOLOGY METHOD [facility]/27[facility]24 [facility] Hemoglobin 9.6(L) 13.5 - 17.5 g/dL LAB HEMETOLOGY METHOD 07/27/2024 10:25 AM [facility] Hematocrit 28.6(L) 42.0 - 54.0 % LAB HEMETOLOGY METHOD 07/27/2024 10:25 AM [facility] MCV 94.7 79.0 - 98.0 FL LAB HEMETOLOGY METHOD 07/27/2024 10:25 AM [facility] MCH 31.8 27.0 - 32.0 pcg LAB HEMETOLOGY METHOD 07/27/2024 10:25 AM [facility] MCHC 33.6 32.0 - 37.0 g/dL LAB HEMETOLOGY METHOD 07/27/2024 10:25 AM [facility] RDW 13.9 11.0 - 15.0 % LAB HEMETOLOGY METHOD 07/27/2024 10:25 AM [facility] Platelets 390 130 - 400 K/mcL LAB HEMETOLOGY METHOD 07/27/2024 10:25 AM [facility] MPV 10.7 7.0 - 11.0 FL LAB HEMETOLOGY METHOD 07/27/2024 10:25 AM [facility] NRBC 0.0 <1.0 % LAB HEMETOLOGY METHOD 07/27/2024 10:25 AM [facility] NRBC Absolute 0.00 <0.10 K/mcL LAB HEMETOLOGY METHOD 07/27/2024 10:25 AM T [facility] Neutrophils Relative 60.4 % LAB HEMETOLOGY METHOD 07/27/2024 10:25 AM [facility] Lymphocytes Relative 22.9 % LAB HEMETOLOGY METHOD 07/27/2024 10:25 AM T [facility] Monocytes Relative 12.4 % LAB HEMETOLOGY METHOD 07/27/2024 10:25 AM [facility] Eosinophils Relative 3.3 % LAB HEMETOLOGY METHOD 07/27/2024 10:25 AM [facility] Basophils Relative 0.2 % LAB HEMETOLOGY METHOD 07/27/2024 10:25 AM [facility] Immature Granulocytes Relative 0.8 % LAB HEMETOLOGY METHOD 07/27/2024 10:25 AM [facility] Neutrophils Absolute 5.25 1.50 - 7.00 K/mcL LAB HEMETOLOGY METHOD 07/27/2024 10:25 AM [facility] Lymphocytes Absolute 1.99 1.00 - 5.00 K/mcL LAB HEMETOLOGY METHOD 07/27/2024 10:25 AM [facility] Monocytes Absolute 1.08(H) 0.20 - 1.00 K/mcL LAB HEMETOLOGY METHOD 07/27/2024 10:25 AM [facility] Eosinophils Absolute 0.29 0.00 - 0.50 K/mcL LAB HEMETOLOGY METHOD 07/27/2024 10:25 AM [facility] Basophils Absolute 0.02 0.00 - 0.20 K/mcL LAB HEMETOLOGY METHOD 07/27/2024 10:25 AM [facility] Immature Granulocytes Absolute 0.07(H) 0.00 - 0.03 K/mcL LAB HEMETOLOGY METHOD 07/27/2024 10:25 AM EDT [facility] Blood Venous blood specimen / Unknown Venipuncture / Unknown 07/27/2024 6:30 AM EDT 07/27/2024 9:10 AM EDT James Marie MD LAB BLOOD ORDERABLES Final Resu lt [facility] [address] [place] [address], [place] [phone] * Magnesium (07/27/2024 6:30 AM EDT) [facility] Magnesium 2.0 1.9 - 2.6 mg/dL LAB CHEMISTRY METHOD 07/27/2024 10:54 AM EDT [facility] Blood Venous blood specimen / Unknown Venipuncture / Unknown 07/27/2024 6:30 AM EDT 07/27/2024 9:10 AM EDT James Marie MD LAB BLOOD ORDERABLES Final Resu lt Performing Organization Address City/[facility]/ZIP Co de Phone Number [facility] [address] [place] [address], [place] [phone] * (ABNORMAL) Basic metabolic panel (07/27/2024 6:30 AM EDT) [facility] Sodium 137 133 - 145 mmol/L LAB CHEMISTRY METHOD 07/27/2024 10:54 AM EDT [facility] Potassium 4.4 3.5 - 5.5 mmol/L LAB CHEMISTRY METHOD 07/27/2024 10:54 AM EDT [facility] Chloride 106 96 - 110 mmol/L LAB CHEMISTRY METHOD 07/27/2024 10:54 AM EDT [facility] CO2 23 21 - 32 mmol/L LAB CHEMISTRY METHOD 07/27/2024 10:54 AM EDT [facility] Anion Gap 8 3 - 11 LAB CHEMISTRY METHOD 07/27/2024 10:54 AM EDT [facility] Glucose 102(H) 70 - 100 mg/dL LAB CHEMISTRY METHOD 07/27/2024 10:54 AM [facility] BUN 25 5 - 25 mg/dL LAB CHEMISTRY METHOD 07/27/2024 10:54 AM [facility] Creatinine 1.08 0.70 - 1.30 mg/dL LAB CHEMISTRY METHOD 07/27/2024 10:54 AM T [facility] eGFR 72 >=60 mL/min/1. 73m2 LAB CHEMISTRY METHOD 07/27/2024 10:54 AM T [facility] Comment:Calculation based on the??Chronic Kidney Disease Epidemiology Collaboration (CKD-EPI) equation refit??without adjustment for race. BUN/Creatinine Ratio 23.1 LAB CHEMISTRY METHOD 07/27/2024 10:54 AM EDT [facility] Calcium 9.2 8.5 - 10.5 mg/dL LAB CHEMISTRY METHOD 07/27/2024 10:54 AM [facility] Blood Venous blood specimen / Unknown Venipuncture / Unknown 07/27/2024 6:30 AM EDT 07/27/2024 9:10 AM EDT us James Marie MD LAB BLOOD ORDERABLES Final Resu lt [facility] [address] [place] [address], documented in this encounter Visit Diagnoses Diagnosis Encounter for other general examination documented in this encounter Care Teams Head Knitting Machine Fixer Relationship Specialty Start Date End Date Josy Chapman MD [address] [phone] PCP - General Internal Medicine 07/21/24 documented as of this encounter
--- OUTSIDE RECORDS SUMMARY | 2024-08-28 16:17 | XMS_ITS | Encounter Summary ---
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, without long-term current use of insulin (HCC) (Primary Dx) Social History Tobacco Use Types Packs/Day Years Used Date Smoking Tobacco: Never Smokeless Tobacco: Never Alcohol Use Standard Drinks/Week Comments No 0 (1 standard drink = 0.6 oz pur e alcohol) Sex Assigned at Date Recorded Not on file documented as of this encounter Plan of Treatment Not on file documented as of this encounter Results * (ABNORMAL) BASIC METABOLIC PANEL (08/15/2017 4:09 PM EDT) [facility] Signature GLUCOSE 323(H) 70 - 100 mg/dL 08/15/2017 8:58 PM EDT [facility] Comment: Reference range applicable to fasting specimens only Based on recommendations from the ADA and AACE, the fasting glucose reference range has been changed to 70-100 mg/dL. ??This change is effective September 21, 2009 BUN 16 5 - 25 mg/dL 08/15/2017 8:58 PM EDT [facility] CREAT 1.1 0.7 - 1.5 mg/dL 08/15/2017 8:58 PM EDT [facility] GFR > 60 >60 08/15/2017 8:58 PM EDT [facility] Comment: If patient is -[place], multiply result by 1.21 Chronic Kidney Disease: < 60 ml/min/1.73 square meters Kidney Failure: < 15 ml/min/1.73 square meters Sodium 137 133 - 145 mEq/L 08/15/2017 8:58 PM EDT [facility] Potassium 4.7 3.5 - 5.5 mEq/L 08/15/2017 8:58 PM EDT [facility] Chloride 96 96 - 108 mEq/L 08/15/2017 8:58 PM EDT [facility] CO2 26.6 21.0 - 32.0 mEq/L 08/15/2017 8:58 PM EDT [facility] CALCIUM 10.1 8.5 - 10.5 mg/dL 08/15/2017 8:58 PM EDT [facility] 08/15/2017 4:09 PM EDT 08/15/2017 4:10 PM EDT Cj Dumont MD LAB Performing Organization Address City/State/[facility] Co de Phone Number [facility] [address] [facility] documented in this encounter Visit Diagnoses Diagnosis Diabetes mellitus due to underlying condition 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
== END 2024-08-28 15:01 | disposition home or self-care (01) ==
LOC: HO.HMCC 13:38
PROVIDERS: PCP Internal Medicine; Visit Provider Internal Medicine
DX: E78.5 Hyperlipidemia, unspecified (principal); E11.9 Type 2 diabetes mellitus without complications; I95.1 Orthostatic hypotension

== ENCOUNTER → 2024-08-28 13:37 | Outpatient (BNVA) | payer MEDICARE, OTHER, SELFPAY | PROVIDERS: PCP Internal Medicine; Visit Provider Internal Medicine | DX: E78.5 Hyperlipidemia, unspecified (principal); I95.1 Orthostatic hypotension; E11.9 Type 2 diabetes mellitus without complications | CPT/HCPCS: 99212 ==